=== PATIENT | female | born 1955 | race Caucasian/White ===

== ENCOUNTER → 2018-03-18 14:39 | Outpatient (POV) | payer MEDICARE, MEDICAID, SELFPAY | PROVIDERS: Family Provider Internal Medicine Adolescent Medicine | DX: Z00.00 Encounter for general adult medical examination without abnormal findings (principal) ==

== ENCOUNTER → 2019-06-02 08:43 | Outpatient (CLI) | payer MEDICARE, MEDICAID, SELFPAY ==
--- NOTE | 2019-06-02 08:48 | MM_ITS ---
PROCEDURE: MM DIG SCREENING MAMM BI W/CAD CLINICAL INDICATION: SCREENING There is a history of breast cancer in the patient's maternal aunts COMPARISON: DIGMAMMDX MAMMOGRAM DX-LONGWALL FOREMAN N/C from 05/15/2005 DIGMAMMS MAMMOGRAM SCREEN-LONGWALL FOREMAN N/C from 10/30/2005 DMSB DIGITAL MAMM-SCREEN BILATERAL from 03/06/2012 TECHNIQUE: Standard CC and MLO images were obtained. R2 CAD reviewed. FINDINGS: The breasts are composed primarily of fat with minimal scattered fibroglandular densities throughout each breast. There are scattered tiny benign-appearing microcalcifications in both breasts. The nipples appear to be slightly inverted bilaterally but this was noted previously and this is stable. There is no new or suspicious lesion in either breast and no suspicious microcalcifications. However a nipple smear of the right breast shows somewhat slightly suspicious or indeterminate findings and even though there is no significant mass or architectural distortion noted a I would recommend the patient have ultrasound of the circumareolar region right breast for additional evaluation. IMPRESSION: Fibrofatty parenchyma with no suspicious lesions seen BI-RAD Category: 0 Need Additional Imaging Evaluation FOLLOW-UP: IMM Immediate Follow-up Recommended (A letter has been sent to the patient regarding results of the study.) Dictated by: Dr. Blas Forrester MD 06/06/2019 08:[address] Blas Forrester MD in [place] 06/06/2019 08:11
--- NOTE | 2019-06-02 08:49 | XR_ITS ---
PROCEDURE: XR DEXA AXIAL SKELETON CLINICAL HISTORY: POST MENOPAUSAL COMPARISON: No exams were available for comparison TECHNIQUE: FINDINGS: The L1-L4 density is 1.308 grams/centimeters sq. This has a T-score of 1.1 The lowest density in the hips is in the left femoral neck at 0.481 grams/centimeters sq with a T-score of -4.0 indicating osteoporosis IMPRESSION: Osteoporosis with high fracture risk. Treatment advised. Suggest follow-up exam May 2020 Dictated by: Yosef Noyola MD 06/02/2019 10:30 Signed by: <Electronically signed by Yosef Noyola MD in [place]> 06/02/2019 10:30
== END ==
PROVIDERS: PCP Internal Medicine Adolescent Medicine; Visit Provider Internal Medicine Adolescent Medicine
DX: Z12.31 Encounter for screening mammogram for malignant neoplasm of breast (principal); Z78.0 Asymptomatic menopausal state
CPT/HCPCS: 77067; 77080; 88112

== ENCOUNTER 2019-06-18 12:47 | Outpatient (CLI) | payer MEDICARE, MEDICAID, SELFPAY ==
[2019-06-18 12:55] VITALS: BP 148/84; PULSE 61; RESP 18; O2SAT 92
== END 2019-06-18 13:12 | disposition home or self-care (01) ==
LOC: INF 12:47
PROVIDERS: Visit Provider Internal Medicine Adolescent Medicine
DX: M81.0 Age-related osteoporosis without current pathological fracture (principal)
CPT/HCPCS: 96372; J0897

== ENCOUNTER → 2019-06-21 09:34 | Outpatient (CLI) | payer MEDICARE, MEDICAID, SELFPAY ==
--- NOTE | 2019-06-21 09:39 | US_ITS ---
PROCEDURE: US BREAST RT COMPLETE CLINICAL INDICATION: ABN MAMM COMPARISON: MM DIG SCREENING MAMM BI W/CAD from 06/02/2019 FINDINGS: Ultrasound performed of the right breast shows no obvious sonographic abnormalities. Small nodes are present in the axilla. IMPRESSION: Unremarkable ultrasound the right breast. Dictated by: Yosef Noyola MD 06/21/2019 10:14 Electronically signed by Yosef Noyola MD in [place] 06/21/2019 10:14
== END ==
PROVIDERS: PCP Internal Medicine Adolescent Medicine; Visit Provider Internal Medicine Adolescent Medicine
DX: R92.8 Other abnormal and inconclusive findings on diagnostic imaging of breast (principal)
CPT/HCPCS: 76641

== ENCOUNTER → 2019-11-23 09:58 | Outpatient (POV) | payer MEDICARE, MEDICAID, SELFPAY | PROVIDERS: PCP Dermatology; Visit Provider Dermatology | DX: Z00.00 Encounter for general adult medical examination without abnormal findings (principal) ==

== ENCOUNTER 2020-04-28 09:27 | Emergency (ER) | payer MEDICARE, MEDICAID, SELFPAY ==
[2020-04-28 09:32] VITALS: BP 223/93; PULSE 78; RESP 18; TEMP 37; O2SAT 98; BMI 44.6
--- NOTE | 2020-04-28 09:38 | HMH.EDGENADL ---
ED Disposition Clinical Impression: Right knee sprain Qualifiers: Encounter type: initial encounter Involved ligament of knee: medial collateral ligament Qualified Code(s): S83.411A - Sprain of medial collateral ligament of right knee, initial encounter Right foot sprain Qualifiers: Encounter type: initial encounter Qualified Code(s): S93.601A - Unspecified sprain of right foot, initial encounter Disposition: Home, Self-Care Condition on Discharge: Good Instructions: How to Use a Walking Boot, DI for Foot Sprain, DI for Knee Sprain Additional Instructions: Orthopedic boot. Ibuprofen for pain. Follow-up with orthopedics, Dr. Hodge. Call for appointment. Prescriptions: Ibuprofen [Ibuprofen 800mg Tab] 800 mg PO Q8HP PRN #15 tab PRN Reason: Moderate Pain Transmission Status: Pending to [facility] Referrals: Preet Vazquez MD [Primary Care Provider] - Susan Hodge MD [Physician] - - Critical Care Critical Care Time: No Attestation: On , the high probability of a clinically significant, sudden or life threatening deterioration of the following system(s) required my full and direct attention, intervention and personal management. The time I documented below is in addition to time spent performing reported procedures but includes the following listed in this critical care notation. Medical Decision Making - Heath Inquiry Pt receiving controlled substance: No Vital Signs: 04/28/20 09:32 04/28/20 10:31 Temperature 98.6 F Temperature Source Oral Pulse Rate [Right Radial] 78 68 Respiratory Rate 18 18 Blood Pressure [Right Arm] 223/93 H 173/88 H Blood Pressure Mean [Right Arm] 136 116 Blood Pressure Source [Right Arm] Automatic Cuff Automatic Cuff Blood Pressure Position [Right Arm] Sitting Sitting 02 Sat by Pulse Oximetry 98 98 Oxygen Delivery Method Room Air Room Air Orders (Tests/Meds): ORDERS Category Date Time Status Foot XR right minimum 3 views [XR foot RT min 3V] Stat Exams 04/28/20 09:42 Taken XR knee RT 3V Stat Exams 04/28/20 09:42 Taken - Radiology Data #1 Image(s): Knee, Foot/Toes Image Reviewed: Yes I reviewed the patient's radiology image Degenerative changes with spurs. No fractures seen. Medical Decision Narrative: Discussed treatment and follow-up. The patient refuses a knee immobilizer. She does want a orthopedic boot for her foot. Recommended follow-up with orthopedics. General Adult HPI - General Stated complaint: ao/04/24/20 fell pain in leg and foot Time Seen by Provider: 04/28/20 09:38 - History of Present Illness HPI narrative: On 04/24/2020 the patient says that she was getting out of the pool, her daughter was lifting her with a Constantine lift into her wheelchair and let go of the Constantine lift, causing it to fall. She says that she landed on her left side but her right lower extremity went up under a piece of furniture. Since then she has pain in her right medial knee and also in the bottom of her foot whenever she tries to bear weight. 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 - Related Data Home Medications Medication Instructions Recorded Confirmed Aspirin [Aspirin 81mg EC Tab] 81 mg PO DAILY 09/20/18 06/18/19 Atorvastatin Calcium [Atorvastatin 80 mg PO DAILY 09/20/18 04/28/20 80mg Tab] Duloxetine HCl [Cymbalta 30mg 30 mg PO DAILY 09/20/18 06/18/19 capsule] Famotidine [Acid Controller] 20 mg PO DAILY 09/20/18 06/18/19 Felodipine [Felodipine ER] 10 mg PO BID 09/20/18 06/18/19 Ferrous Sulfate 325 mg PO DAILY 09/20/18 06/18/19 Folic Acid [Folic Acid 1mg tablet] 0 mg PO DAILY 09/20/18 06/18/19 Gabapentin 800 mg PO BID 09/20/18 04/28/20 Gabapentin [Gabapentin 400mg Cap] 400 mg PO BID 09/20/18 06/18/19 Levothyroxine Sodium 200 mcg PO DAILY 09/20/18 06/18/19 [Levothyroxine 200mcg (0.2mg) Tab] Metformin HCl 500 mg PO DAILY 09/20/18 06/18/19 Pioglitazone HCl 30 mg PO DAILY 09/20/18 04/28/20 Nathaly
--- NOTE | 2020-04-28 09:42 | XR_ITS ---
PROCEDURE: XR KNEE RT 3V CLINICAL INDICATION: fall Knee pain. COMPARISON: No exams were available for comparison FINDINGS: No fracture or dislocation. No lytic or blastic change. There is periarticular bony demineralization. There is moderate osteoarthrosis of the medial femorotibial and patellofemoral compartments demonstrated with joint space narrowing and osteophyte formation. Other findings:Diffuse atheromatous vascular calcifications. IMPRESSION: 1. No acute findings. 2. Moderate osteoarthrosis. 3. Atherosclerotic vascular disease. Dictated by: Lorraine Ridley 04/28/2020 10:43 Electronically signed by Lorraine Ridley in [place] 04/28/2020 10:43
--- NOTE | 2020-04-28 09:42 | XR_ITS ---
PROCEDURE: XR FOOT RT MIN 3V CLINICAL INDICATION: fall Pain in the arch of the foot. COMPARISON: No exams were available for comparison FINDINGS: No fracture or dislocation. No lytic or blastic change. There is normal mineralization. There is midfoot and 1st MTP mild degenerative arthrosis. Other findings:A moderate-sized plantar calcaneal spur is seen. A small enthesophyte of the calcaneus is seen posteriorly. Cortical spurring of the medial malleolus. There is diffuse mild soft tissue swelling of the left ankle and foot. IMPRESSION: 1. No acute findings. 2. Os calcis spurring. 3. Mild degenerative arthrosis of the left ankle, midfoot and MTP/interphalangeal articulations of the hallux. 4. Possible mild diffuse soft tissue swelling of the ankle and foot. Dictated by: Lorraine Ridley 04/28/2020 10:39 Electronically signed by Lorraine Ridley in [place] 04/28/2020 10:39
--- NOTE | 2020-04-28 09:49 | PC.NURSE ---
notified rad of new orders on pt.
--- NOTE | 2020-04-28 10:07 | PC.NURSE ---
pt to radiology
[2020-04-28 10:31] VITALS: BP 173/88; PULSE 68; RESP 18; O2SAT 98
[2020-04-28 10:49] VITALS: BP 173/88; PULSE 68; RESP 18; TEMP 37; O2SAT 98
== END 2020-04-28 10:49 | disposition home or self-care (01) ==
PROVIDERS: Emergency Provider Emergency Medicine; PCP Internal Medicine Adolescent Medicine
DX: S93.601A Unspecified sprain of right foot, initial encounter (principal); S83.411A Sprain of medial collateral ligament of right knee, initial encounter; W18.39XA Other fall on same level, initial encounter; Y92.89 Other specified places as the place of occurrence of the external cause; Z89.512 Acquired absence of left leg below knee; I25.2 Old myocardial infarction; E03.9 Hypothyroidism, unspecified; I10 Essential (primary) hypertension; E11.9 Type 2 diabetes mellitus without complications; E78.5 Hyperlipidemia, unspecified; Z88.0 Allergy status to penicillin; Z88.2 Allergy status to sulfonamides; Z88.5 Allergy status to narcotic agent; Z79.899 Other long term (current) drug therapy; F17.210 Nicotine dependence, cigarettes, uncomplicated
CPT/HCPCS: 29515; 73562; 73630; 99282

== ENCOUNTER 2020-05-05 11:30 | Outpatient (CLI) | payer MEDICARE, MEDICAID, SELFPAY ==
[2020-05-05 11:44] VITALS: BP 156/73; PULSE 51; RESP 18; TEMP 36.4; O2SAT 99
== END 2020-05-05 11:44 | disposition home or self-care (01) ==
LOC: INF 11:30
PROVIDERS: PCP Internal Medicine Adolescent Medicine; Visit Provider Internal Medicine Adolescent Medicine
DX: M81.0 Age-related osteoporosis without current pathological fracture (principal)
CPT/HCPCS: 96372; J0897

== ENCOUNTER → 2020-05-29 10:56 | Outpatient (CLI) | payer MEDICARE, MEDICAID, SELFPAY ==
--- NOTE | 2020-05-29 10:57 | US_ITS ---
APPROVED REPORT Exam Type: Ankle to Brachial Index Platform Engineer: Danya Lewis RT(R) Indications Claudication: Right Rest Pain: Right Current Smoker CAD Risk Factors History of PAD: Hyperlipidemia Obesity Diabetes Current Smoker above knee amputation on the left lower extremity. Pressures/Indices Right Indices Left Indices Brachial 254.00 mmHg Brachial 242.00 mmHg Low Thigh 140.00 mmHg 0.58 Low Thigh Calf 129.00 mmHg 0.53 Calf Ankle(PT) 133.00 mmHg 0.55 Ankle(PT) Ankle(DP) 139.00 mmHg 0.57 Ankle(DP) Digit 122.00 mmHg 0.50 Digit Findings RT CONNOR=0.6 LT CONNOR=Unobtainable due to above knee amputation RT TBI=0.5 Normal waveforms Diminished pulses Due to elevated BP Dr. Smith office was notified. Conclusion RT CONNOR=0.6 LT CONNOR=Unobtainable due to above knee amputation RT TBI=0.5 Normal waveforms Diminished pulses Moderate right arterial disease Electronically signed by : Yosef Noyola MD 05/29/2020 17:07:46
== END ==
PROVIDERS: PCP Internal Medicine Adolescent Medicine; Visit Provider Podiatrist
DX: R09.89 Other specified symptoms and signs involving the circulatory and respiratory systems (principal)
CPT/HCPCS: 93923

== ENCOUNTER 2020-11-22 00:37 | Inpatient (IN) | payer MEDICARE, MEDICAID, SELFPAY ==
[2020-11-22] VITALS (30 sets, daily range): BP systolic 133–206; BP diastolic 64–110; PULSE 56–95; RESP 14–20; TEMP 36.6–36.8; O2SAT 90–98; BMI 42.5
--- NOTE | 2020-11-22 | IR_ITS ---
APPROVED REPORT Patient Location: Outpatient Rn Ed: NARDA Laird RT (R) PROCEDURES Left heart catheterization Left ventriculogram Selective coronary angiogram Drug-eluting stent deployment to the ostial proximal LAD Right renal artery selective angiogram Drug-eluting stent deployment to the right renal artery INDICATION Acute on established myocardial infarction, Coronary disease, Malignant hypertension, Chronic renal failure chronic 1.5, Renal artery stenosis Informed consent was obtained prior to the procedure. COMPLICATIONS None Estimated Blood Loss: Less than 10 mls TECHNIQUE One percent lidocaine used to anesthetize the right anterior aspect of the wrist. The right radial artery was accessed via the Seldinger technique. A 6 [place] sheath was placed in the right radial artery. 2.5 mg of verapamil, 800 mcg of nitroglycerin, 1mg Lidocaine and 5000 U Heparin were given through the arterial sheath. Catheter was used to perform left heart catheterization left ventriculogram and selective coronary angiogram. Therapeutic heparin was administered and the catheter was used to intubate the left main artery. A Choice PT extra-support wire was placed into the LAD and a 2.5 x 15 mm resolute [place] stent was initially deployed at 18 paramjit reducing the critical stenosis. The balloon was brought back and then dilated at 24 paramjit to post dilate the ostial proximal portion of the stent. SWETHA-3 flow was present before and after the procedure. At the end of this procedure because patient's blood pressure was 240 mmHg systolic and she had a known left nephrectomy the [place] catheter was advanced and a right selective renal angiogram was performed. This demonstrated a severe stenosis therefore the wire was placed distal to the stenosis and a 5 mm x 15 mm resolute [place] stent was deployed at 20 paramjit reducing the severe stenosis to 0%. The balloon was brought back and deployed at 24 paramjit to further post dilate. After achieving excellent angiographic results with wide patency of the right renal artery the apparatus was removed the sheath was removed good hemostasis was achieved using TR banding patient was transferred to the postop putting in stable condition ANGIOGRAPHIC RESULTS The left main artery Normal The left anterior descending artery Has an ostial proximal 70 to 80% stenosis with remaining vessel having mild 10% stenosis The circumflex artery Is a large dominant vessel giving rise to a large trifurcating first obtuse marginal artery which has an ostial proximal 30 to 40% stenosis. The mid circumflex artery then has additional 30 to 40% stenoses. The terminal obtuse marginal artery has a proximal 90% concentric stenosis and then supplies two 1.5 mm obtuse marginal arteries. The right coronary artery Nondominant with proximal 30% stenosis mid vessel tandem 60% stenoses both in areas of 2 mm diameter vessels. The DOBBS ventriculogram reveals Hyperdynamic 70% The left ventricular end-diastolic pressure 20 mmHg The right renal artery singular and has an ostial 80% stenosis The left renal artery is noted to be occluded from previous nephrectomy IMPRESSION Severe to critical ostial proximal LAD disease as described above Successful stenting of the ostial proximal LAD severe disease reduced to 0% with 1 drug-eluting stent Persistent severe stenosis in the distal circumflex artery as described above Hyperdynamic ventricle system with hypertensive heart disease Elevated LVEDP consistent with hypertensive heart disease Severe right renal artery stenosis Successful stenting of the ostial proximal right renal artery severe disease reduced to 0% with 1 drug-eluting stent PLAN 1. Mesfin
--- NOTE | 2020-11-22 00:30 | ECG_ITS ---
APPROVED REPORT Exam: Resting ECG HR:64 bpm ECG Measurements Heart Rate 64 AXES NV 132 P 59 QRSd 100 QRS 78 QT 424 T -66 QTc 437 Conclusion Normal sinus rhythm with sinus arrhythmia ST & T wave abnormality, consider inferolateral ischemia Abnormal ECG Electronically signed by : Preet Vazquez, 11/22/2020 17:46:29
--- NOTE | 2020-11-22 01:06 | ECG_ITS ---
APPROVED REPORT Exam: Resting ECG HR:82 bpm ECG Measurements Heart Rate 82 AXES VT 122 P 39 QRSd 98 QRS 79 QT 364 T -63 QTc 425 Conclusion Normal sinus rhythm with sinus arrhythmia ST & T wave abnormality, consider inferolateral ischemia Abnormal ECG Electronically signed by : Preet Vazquez, 11/22/2020 17:46:34
--- NOTE | 2020-11-22 01:06 | XR_ITS ---
PROCEDURE: XR CHEST PORTABLE CLINICAL HISTORY: CP Chest pain COMPARISON: CR CXR1 CHEST-PORTABLE from 10/18/2015 CR CXR CHEST(2 VIEWS-NOT PORTABLE) from 08/06/2017 FINDINGS: Exam is limited secondary to underpenetration of the lung bases. Normal heart size. There is increased density in the right lower lobe which may in part be due to the underpenetration. Cannot exclude underlying pneumonia. Suggest repeating exam at no additional charge for further evaluation. Upper lobes are clear. There are degenerative changes in the shoulders. IMPRESSION: Underpenetration of the lung bases. Cannot exclude pneumonia in the right lower lobe. Suggest repeating exam Dictated by: Yosef Noyola MD 11/22/2020 05:26 Yosef Noyola MD in [place] 11/22/2020 05:26
[2020-11-22 01:14] LABS: Basophils # 0.1 K/mm3 (0-0.2); Basophils % 0.5 % (0.1-2.0); Eosinophils # 0.2 K/mm3 (0.0-0.4); Eosinophils % 1.3 % (0.1-12.0); Hemoglobin 13.8 g/dL (12.2-16.2); Lymphocytes # 2.6 K/mm3 (0.7-4.5); Lymphocytes % 18.8 % (10-50); Mean Corpuscular HGB Conc 32.2 g/dL (31.8-35.4); Mean Corpuscular Hemoglobin 28.1 pg (27.0-31.2); Mean Corpuscular Volume 87.4 fl (81-99); Mean Platelet Volume 7.8 fl (7.4-10.4); Monocytes # 0.6 K/mm3 (0.1-1.0); Monocytes % 4.5 % (1.7-9.3); Neutrophils # 10.2 K/mm3 (1.8-7.8); Neutrophils % 74.8 % (37.0-80.0); Platelet Count 382 K/mm3 (142-424); Red Blood Count 4.92 M/mm3 (4.20-5.40); Red Cell Distribution Width 14.6 % (11.5-17.5); White Blood Count 13.6 K/mm3 (4.8-10.8)
--- NOTE | 2020-11-22 01:14 | HMH.EDCP ---
ED Disposition Clinical Impression: Unstable angina pectoris, Non-STEMI (non-ST elevated myocardial infarction), Morbid obesity with body mass index (BMI) of 40.0 to 49.9, PVD (peripheral vascular disease), Tobacco use, Renal insufficiency Hypertension Qualifiers: Hypertension type: essential hypertension Qualified Code(s): I10 - Essential (primary) hypertension Diabetes mellitus Qualifiers: Diabetes mellitus type: type 2 Diabetes mellitus compressor battery pellets insulin use: unspecified intermediate insulin use status Diabetes mellitus complication status: with other specified complication Qualified Code(s): E11.69 - Type 2 diabetes mellitus with other specified complication Disposition: Admitted As Inpatient Condition on Discharge: Serious Referrals: PCP,No [Non-Staff] - - Critical Care Critical Care Time: No Attestation: On 11/22/20, the high probability of a clinically significant, sudden or life threatening deterioration of the following system(s) required my full and direct attention, intervention and personal management. The time I documented below is in addition to time spent performing reported procedures but includes the following listed in this critical care notation. Medical Decision Making - Medical Records Medical records reviewed: Yes: I reviewed the patient's medical records. - Heath Inquiry Pt receiving controlled substance: No Vital Signs: 11/22/20 00:56 Temperature 97.8 F Temperature Source Oral Pulse Rate [Right] 93 H Respiratory Rate 95 H Blood Pressure [Right Arm] 205/110 H Blood Pressure Mean [Right Arm] 141 02 Sat by Pulse Oximetry 95 Oxygen Delivery Method Room Air - Lab Data Lab results reviewed: Yes: I reviewed the patient's lab results. Lab Results 11/22/20 00:57: WBC 13.6 H, RBC 4.92, Hgb 13.8, Hct 43.0, MCV 87.4, MCH 28.1, MCHC 32.2, RDW 14.6, Plt Count 382, MPV 7.8, Neut % (Auto) 74.8, Lymph % (Auto) 18.8, [place] % (Auto) 4.5, Eos % (Auto) 1.3, Baso % (Auto) 0.5, Neut # (Auto) 10.2 H, Lymph # (Auto) 2.6, [place] # (Auto) 0.6, Eos # (Auto) 0.2, Baso # (Auto) 0.1 11/22/20 00:57: Sodium 142, Potassium 4.5, Chloride 105, Carbon Dioxide 27, Anion Gap 14.5, BUN 43 H, Creatinine 1.70 H, Estimated Creat Clear 27, Estimated GFR 30 L, Est GFR ( Amer) 36 L, Glucose 293 H, Calcium 10.1, Troponin I 0.14 H, C-Reactive Protein 50.5 H 11/22/20 00:57: ESR 74 H 11/22/20 00:57: Procalcitonin 0.067 11/22/20 01:35: Urine Color Yellow, Urine Appearance Clear, Urine pH 7.5, Ur Specific [place] 1.020, Urine Protein Trace, Urine Glucose (UA) Trace, Urine Ketones Negative, Urine Blood Trace-i, Urine Nitrate Negative, Urine Bilirubin Negative, Urine Urobilinogen 0.2, Ur Leukocyte Esterase Negative, Urine RBC 3-5, Urine WBC 3-5, Ur Squamous Epith Cells 10-20, Urine Bacteria 1+, Urine Mucus 1+ Result diagrams: 11/22/20 00:57 11/22/20 00:57 Orders (Tests/Meds): ED MEDICATIONS Generic Name Dose Route Start Last Admin Trade Name Freq PRN Reason Stop Dose Admin Sodium Chloride 1,000 mls @ 999 mls/hr 11/22/20 01:15 11/22/20 01:17 Sod Chlor 0.9% 1000ml Bag IV 11/22/20 02:15 999 mls/hr .Q1H1M ARMINDA Administration Nitroglycerin 0.4 mg 11/22/20 01:07 11/22/20 01:05 Nitroglycerin 0.4mg Sl Tablet SL 12/22/20 01:06 0.4 mg Q5MINP PRN Administration Chest Pain Discontinued Medications Generic Name Dose Route Start Last Admin Trade Name Freq PRN Reason Stop Dose Admin Aspirin 324 mg 11/22/20 01:07 11/22/20 01:16 Aspirin 81mg Chewable Tablet PO 11/22/20 01:08 324 mg ONCE ONE Administration Ketorolac Tromethamine 30 mg 11/22/20 01:29 11/22/20 01:35 Ketorolac 30mg/Ml Vial IV 11/22/20 01:30 30 mg ONCE ONE Administration Morphine Sulfate 2 mg 11/22/20 01:07 11/22/20 01:16 Morphine 2mg/Ml Syringe IV 11/22/20 01:08 2 mg ONCE ONE Administration Nitroglycerin 1 gm 11/22/20 01:23 11/22/20 01:26 Nitroglycerin 1 Gm Ointment TD 11/22/20 01:24 1 gm ONCE
[2020-11-22 01:20] LABS: Chloride 105 mmol/L (98-107); Potassium 4.5 mmoL/L (3.5-5.1); Sodium 142 mmol/L (136-145)
[2020-11-22 01:23] LABS: Anion Gap 14.5 mEq/L (5-15); Blood Urea Nitrogen 43 mg/dl (7-17); Calcium 10.1 mg/dl (8.4-10.2); Carbon Dioxide 27 mmol/L (22.0-30.0); Creatinine Clearance Estimated 27 mL/min (50-200); Estimated Glomerular Filt Rate 30 ml/min (>60); GFR (African American) 36 ML/MIN (>60); Glucose 293 mg/dl (74-100)
[2020-11-22 01:28] LABS: C-Reactive Protein 50.5 mg/L (0-4)
[2020-11-22 01:37] LABS: Troponin I 0.14 ng/ml (0.00-0.034)
[2020-11-22 01:39] LABS: Appearance,Urine CLEAR (Clear); Bilirubin,Urine Negative (Negative); Blood, Urine TRACE-I (Negative); Color,Urine YELLOW (Yellow); Glucose,Urine (UA) TRACE (Negative); Ketones,Urine Negative (Negative); Leukocyte Esterase,Urine Negative (Negative); Microscopic, Urine URINE MICROSCOPIC (MICROSCOPIC); Nitrate,Urine Negative (Negative); PH,Urine 7.5 (5.0-8.5); Protein,Urine TRACE (Negative); Urobilinogen,Urine 0.2 EU/dl (0.2)
[2020-11-22 01:42] LABS: Procalcitonin 0.067 ng/mL (0.0-2.0)
[2020-11-22 01:50] LABS: Erythrocyte Sedimentation Rate 74 mm/hr (0-30)
[2020-11-22 01:50] LABS: Bacteria,Urine 1+ /lpf; Mucus,Urine 1+ /lpf
--- NOTE | 2020-11-22 02:33 | PC.NURSE ---
Pt has been admitted [facility] to [facility] for Non-Stemi and unstable angina. There are no Available beds on the floor and pt will be a Boarder in the ER
--- NOTE | 2020-11-22 03:02 | PC.NURSE ---
pt laying in bed with eyes closed
--- NOTE | 2020-11-22 03:53 | PC.NURSE ---
Pt resting quietly at this time, No c/o.
[2020-11-22 04:44] LABS: Troponin I 0.64 ng/ml (0.00-0.034)
--- NOTE | 2020-11-22 04:47 | PC.NURSE ---
Critical Troponin called from lab, Dr Blood aware
--- NOTE | 2020-11-22 05:04 | CA_ITS ---
APPROVED REPORT EXAM: Comprehensive 2D, Doppler, and color-flow Echocardiogram Presto Log Operator: Zoey Grover RVT Ht: 5 ft 3 in Wt: 240lbs BSA: 2.09 BP: 205/110 mmHg Indications: NSTEMI,CABG,SMOKER,OBESITY,HTN,HLD,DM TDS-PT BODY HABITUS 2D Dimensions LVOT 1.57 cm (M/F) 1.5-2.5 LA Volume 26.00 mL LA Volume Index 12.44 mL/m2 (M/F) 16-34 M-Mode Dimensions RVDd 1.74 cm (0.9-2.6) LA Diam 4.20 cm (1.9-4.0) LVDd 4.97 cm (3.5-5.7) Ao Diam 2.49 cm (2.0-3.7) LVDs 3.40 cm (3.5-5.7) IVSd 1.57 cm (0.6-1.1) PWd 1.02 cm (0.6-1.1) EF (Teich) 59.30% FS 31.60% EDV (Teich) 116.60 mL ESV (Teich) 47.40 mL LV Diastology E Decel Time 200.00 (160-240 msec) E/A Ratio 0.9 MED E' 6.40 (< 7 cm/sec) E'/MED E' Ratio 15.91 (>14) LAT E' 7.10 (<10 cm/sec) E/LAT E' Ratio 14.34 (>14) Aortic Valve AI PHT 657.00 ms Mitral Valve MV E Max Goran. 102.00 (40-130 cm/s) MV A Velocity 117.00 (40-130 cm/s) E/A Ratio 0.87 MV Decel. Time 200.00 (160-240 ms) MV PHT 59.00 ms Pulmonary Valve PV Peak Velocity 105.00 (50-150 cm/s) Tricuspid Valve TR P. Velocity 169.00 cm/s RAP Estimate 10.00 mmHg RVSP 21.40 mmHg Left Ventricle Left atrium is mildly enlarged, left ventricle is normal size, mild concentric left ventricular hypertrophy, visually estimated ejection fraction 55% with no regional wall motion abnormality, grade 1 diastolic dysfunction seen with tissue Doppler evidence of raise left atrial pressure. Right Ventricle Right atrium and right ventricular normal size and contractility. Aortic Valve Aortic valve is minimally thickened and fibrosed, there is no aortic stenosis, there is mild aortic insufficiency. Mitral Valve Mitral valve is minimally thickened, there is no mitral stenosis, there is mild mitral regurgitation. Tricuspid Valve Tricuspid valve grossly normal, there is mild tricuspid regurgitation, tricuspid regurgitation jet velocity is inadequate for calculation of the right ventricular systolic pressure. Pulmonic Valve Pulmonic valve is poorly visualized. Great Vessels Aortic root is normal size. Pericardium No significant pericardial effusion noted. Conclusion 1. Mildly enlarged left atrium, normal left ventricular size, mild concentric left ventricular hypertrophy, visually estimated ejection fraction 55% with no regional wall motion abnormality, grade 1 diastolic dysfunction seen without tissue Doppler evidence of raise left atrial pressure. 2. Mild aortic, mild mitral and tricuspid regurgitation. 3. No significant pericardial effusion noted. Electronically signed by : Haider Davis, 11/23/2020 13:05:28
--- NOTE | 2020-11-22 05:34 | PC.NURSE ---
pt resting quietly @ this time
--- NOTE | 2020-11-22 05:54 | PC.NURSE ---
AM lab drawn, FSBS 211 no insulin given because of NPO diet
[2020-11-22 05:58] LABS: POC Glucose,Bedside 211 (70-110)
--- NOTE | 2020-11-22 06:09 | PC.NURSE ---
notified vascular of echo order
--- NOTE | 2020-11-22 06:27 | PC.NURSE ---
vascular @ bedside for echo
[2020-11-22 06:34] LABS: Basophils # 0.1 K/mm3 (0-0.2); Basophils % 0.5 % (0.1-2.0); Eosinophils # 0.2 K/mm3 (0.0-0.4); Eosinophils % 1.5 % (0.1-12.0); Hematocrit 40.7 % (37.0-47.0); Hemoglobin 13.2 g/dL (12.2-16.2); Lymphocytes # 2.9 K/mm3 (0.7-4.5); Lymphocytes % 25.8 % (10-50); Mean Corpuscular HGB Conc 32.5 g/dL (31.8-35.4); Mean Corpuscular Hemoglobin 28.3 pg (27.0-31.2); Mean Corpuscular Volume 87.1 fl (81-99); Monocytes # 0.5 K/mm3 (0.1-1.0); Monocytes % 4.6 % (1.7-9.3); Neutrophils # 7.7 K/mm3 (1.8-7.8); Neutrophils % 67.6 % (37.0-80.0); Platelet Count 247 K/mm3 (142-424); Red Blood Count 4.67 M/mm3 (4.20-5.40); Red Cell Distribution Width 14.7 % (11.5-17.5); White Blood Count 11.4 K/mm3 (4.8-10.8)
[2020-11-22 06:50] LABS: Chloride 111 mmol/L (98-107); Potassium 4.7 mmoL/L (3.5-5.1); Sodium 141 mmol/L (136-145)
[2020-11-22 06:53] LABS: Blood Urea Nitrogen 41 mg/dl (7-17); Creatinine Clearance Estimated 30 mL/min (50-200); Estimated Glomerular Filt Rate 35 ml/min (>60); GFR (African American) 42 ML/MIN (>60)
[2020-11-22 06:54] LABS: Anion Gap 8.7 mEq/L (5-15); Carbon Dioxide 26 mmol/L (22.0-30.0); Glucose 203 mg/dl (74-100)
--- NOTE | 2020-11-22 07:08 | PC.NURSE ---
Jeremi on phone with Evette @ this time
[2020-11-22 07:09] LABS: Troponin I 1.67 ng/ml (0.00-0.034)
[2020-11-22 07:13] LABS: INR 1.03 (0.9-1.1); Prothrombin Time 11.4 seconds (9.4-11.8)
--- NOTE | 2020-11-22 07:26 | PC.NURSE ---
per dionicio salcido in laboratory geneticist pt will have heart cath between 8-8:30am today
--- NOTE | 2020-11-22 07:27 | PC.NURSE ---
Pt prepped for cath, groin shaved, consent signed.
--- NOTE | 2020-11-22 08:46 | PC.NURSE ---
report given to dionicio chaney from [facility] at this time
--- NOTE | 2020-11-22 08:51 | PC.NURSE ---
Pt to Technical Support Specialist with Liliana Peña RN
--- NOTE | 2020-11-22 09:22 | HMH.CNCARD ---
History of Present Illness Consult date: 11/22/20 Requesting physician: Reece Blood Consult reason: chest pain Chief complaint: chest pain History of present illness: This is a 65-year-old white female who presented to the emergency department with complaints of chest pain. She states that she has had the chest pain for approximately 3 nights. She describes this as a pressure heavy sensation in the substernal aspect of her chest that radiates into the left side of her jaw. It is associated with shortness of breath. This happens at rest and worsens with exertion. Nothing really helped to improve the pain. The patient states that this is a moderate in intensity pain. The patient did have an elevated troponin at 0.14 and then elevated to 1.67. This is consistent with a non-ST elevation myocardial infarction. The patient has known hypertension, diabetes and is a tobacco user. She also has a family history of coronary artery disease. She denies any fever, chills, nausea, vomiting, diarrhea, PND or orthopnea. [facility] History I have reviewed the patient's past medical history: Yes Medical History: Reports:: Diabetes Mellitus Type 2, Hyperlipidemia, Hypertension, Myocardial Infarction Denies:: Cancer, Diabetes Mellitus Type 1, MRSA *Have you ever received a pneumonia vaccine?: Yes *Have you received a flu vaccine this season?: Yes Other Medical History: Reports: Thyroid Disease Laterality Cases: Right: Other, Bilateral: Tonsillectomy Other Surgeries: Yes: CABG, Cardiac Catheterization, Cholecystectomy, , Thyroidectomy Amputation: Yes Fractures: No - *Social History Smoking Status: Current every day smoker Tobacco Type: cigarettes # Packs/Day (cigarettes): 2 Alcohol Intake: never Alcohol Intake Frequency:: other Substance Use Type: denies use *Occupational Status:: disabled Housing: house Household Members: significant other, children *Travel in the last 8 weeks: None Family Hx:: Diabetes, Cancer, Hypertension Meds Home Medications Medication Instructions Recorded Confirmed Type Aspirin [Aspirin 81mg EC Tab] 81 mg PO DAILY 09/20/18 11/22/20 History Atorvastatin Calcium [Atorvastatin 80 mg PO DAILY 09/20/18 11/22/20 History 80mg Tab] Felodipine [Felodipine ER] 10 mg PO BID 09/20/18 11/22/20 History Levothyroxine Sodium 200 mcg PO DAILY 09/20/18 11/22/20 History [Levothyroxine 200mcg (0.2mg) Tab] Pioglitazone HCl 30 mg PO DAILY 09/20/18 11/22/20 History lisinopriL [Lisinopril 40mg Tablet] 40 mg PO DAILY 09/20/18 11/22/20 History Oxycodone HCl/Acetaminophen 1 tab PO BID 11/22/20 11/22/20 History [Oxycodone W/Apap 325mg Tablet] diazePAM [diazePAM 5mg Tablet] 5 mg PO BID 11/22/20 11/22/20 History hydroCHLOROthiazide [HCTZ 25mg 25 mg PO DAILY 11/22/20 11/22/20 History tab] Allergies Allergy/AdvReac Type Severity Reaction Status Date / Time penicillin G [PENICILLIN G] Allergy Mild Verified 11/22/20 01:15 Sulfa (Sulfonamide Allergy Mild Verified 11/22/20 01:15 Antibiotics) [SULFA (SULFONAMIDE ANTIBIOTICS)] adhesive tape AdvReac Mild Verified 11/22/20 01:15 Exam Vital signs and Labs for Last 24 Hours: Temp Pulse Resp BP Pulse Ox 98.2 F 86 20 159/69 H 91 L 11/22/20 08:49 11/22/20 08:49 11/22/20 08:49 11/22/20 08:49 11/22/20 06:05 Laboratory Results - last 24 hr 11/22/20 00:57: WBC 13.6 H, RBC 4.92, Hgb 13.8, Hct 43.0, MCV 87.4, MCH 28.1, MCHC 32.2, RDW 14.6, Plt Count 382, MPV 7.8, Neut % (Auto) 74.8, Lymph % (Auto) 18.8, [place] % (Auto) 4.5, Eos % (Auto) 1.3, Baso % (Auto) 0.5, Neut # (Auto) 10.2 H, Lymph # (Auto) 2.6, [place] # (Auto) 0.6, Eos # (Auto) 0.2, Baso # (Auto) 0.1 11/22/20 00:57: Sodium 142, Potassium 4.5, Chloride 105, Carbon Dioxide 27, Anion Gap 14.5, BUN 43 H, Creatinine 1.70 H, Estimated Creat Clear 27, Estimated GFR 30 L, Est GFR ( Amer) 36 L, Glucose 293 H, Calcium 10.1, Troponin I 0.14 H, C-Reactive Protein 50.5 H 11/22/20 00:57: ESR 7
[2020-11-22 10:18] LABS: Cholesterol 204 mg/dl (140-200); Triglycerides 172 mg/dl (30-150); VLDL Cholesterol 34 mg/dL (0-40)
[2020-11-22 10:19] LABS: Chol/HDL Ratio 5.1 (1-3.5); HDL Cholesterol 40 mg/dl (40-60)
[2020-11-22 10:30] LABS: Direct LDL Cholesterol 121.76 mg/dL (100-129)
--- NOTE | 2020-11-22 13:48 | P.CONPHA_ITS ---
[facility] Pharmacy VTE Monitoring - Patient Demographics Admission date: 11/22/20 Report Date: 11/22/20 Time: 13:48 Allergies/Adverse Reactions: Patient Allergies penicillin G [PENICILLIN G] Allergy (Mild, Verified 11/22/20 01:15) Sulfa (Sulfonamide Antibiotics) [SULFA (SULFONAMIDE ANTIBIOTICS)] Allergy (Mild, Verified 11/22/20 01:15) adhesive tape Adverse Reaction (Mild, Verified 11/22/20 01:15) Height: 1.6 m Weight: 108.862 kg Patient Problems: Current Active Problems Hypertension (Acute) Unstable angina pectoris (Acute) Non-STEMI (non-ST elevated myocardial infarction) (Acute) Diabetes mellitus (Acute) Tobacco use (Acute) Renal insufficiency (Acute) Non-ST elevation myocardial infarction (NSTEMI) (Acute) HLD (hyperlipidemia) (Chronic) PVD (peripheral vascular disease) (Chronic) Morbid obesity with body mass index (BMI) of 40.0 to 49.9 (Chronic) - VTE Risk Labs: VTE Related Lab Results Hgb 13.2 g/dL (12.2-16.2) 11/22/20 05:47 Hct 40.7 % (37.0-47.0) 11/22/20 05:47 Plt Count 247 K/mm3 (142-424) D 11/22/20 05:47 PT 11.4 seconds (9.4-11.8) 11/22/20 06:25 INR 1.03 (0.9-1.1) 11/22/20 06:25 BUN 41 mg/dl (7-17) H 11/22/20 06:25 Creatinine 1.50 mg/dl (0.52-1.04) H 11/22/20 06:25 Estimated Creat Clear 30 mL/min (50-200) 11/22/20 06:25 - Prophylaxis VTE Prophylaxis Ordered?: Yes Types of VTE Prophylaxis: TEDS Knee High Location of Applied Device: Bilateral Lower Extremeties
[2020-11-22 14:09] LABS: INR 1.09 (0.9-1.1)
[2020-11-22 15:16] LABS: CATHL Activated Clotting Time > 400 SEC (74-125)
[2020-11-22 16:54] LABS: POC Glucose,Bedside 154 (70-110)
--- NOTE | 2020-11-22 17:07 | PC.NURSE ---
Spoke with Dr. Vazquez earlier in re to pts bp being elevated and he ordered 40 mg lisinopril now and cbc and bmp in am. Pt already has labs ordered for am.
--- NOTE | 2020-11-22 17:37 | HMH.HP ---
*Admission Date: 11/22/20 *Chief complaint: Chest pain/STEMI *History of present illness: History of present illness: This is a 65-year-old white female who presented to the emergency department with complaints of chest pain. She states that she has had the chest pain for approximately 3 nights. She describes this as a pressure heavy sensation in the substernal aspect of her chest that radiates into the left side of her jaw. It is associated with shortness of breath. This happens at rest and worsens with exertion. Nothing really helped to improve the pain. The patient states that this is a moderate in intensity pain. The patient did have an elevated troponin at 0.14 and then elevated to 1.67. This is consistent with a non-ST elevation myocardial infarction. The patient has known hypertension, diabetes and is a tobacco user. She also has a family history of coronary artery disease. She denies any fever, chills, nausea, vomiting, diarrhea, PND or orthopnea. Above note per cardiology. Patient diagnosed with non-STEMI, taken to [facility]. Results as below: IMPRESSION Severe to critical ostial proximal LAD disease as described above Successful stenting of the ostial proximal LAD severe disease reduced to 0% with 1 drug-eluting stent Persistent severe stenosis in the distal circumflex artery as described above Hyperdynamic ventricle system with hypertensive heart disease Elevated LVEDP consistent with hypertensive heart disease Severe right renal artery stenosis Successful stenting of the ostial proximal right renal artery severe disease reduced to 0% with 1 drug-eluting stent PLAN 1. Brilinta and aspirin 2. Beta-blockers ELIEL inhibitors 3. Control of hypertension 4. At this point I favor treating the distal circumflex artery medically. After patient is maximally medically managed and her blood pressure is better controlled should she continue to experience angina pectoris I could consider stenting this vessel although because of the bifurcating nature I believe medical management would be most warranted at this time 5. LDL less than 55 6. Cardiac rehabilitation 7. Avoidance of tobacco products [facility] History I have reviewed the patient's past medical history: Yes Medical History: Reports:: Diabetes Mellitus Type 2, Hyperlipidemia, Hypertension, MRSA, Myocardial Infarction Denies:: Cancer, Diabetes Mellitus Type 1 *Have you ever received a pneumonia vaccine?: Yes *Have you received a flu vaccine this season?: Yes Other Medical History: Reports: Thyroid Disease Laterality Cases: Right: Other, Bilateral: Tonsillectomy Other Surgeries: Yes: CABG, Cardiac Catheterization, Cholecystectomy, , Thyroidectomy Amputation: Yes (girma L side) Fractures: No - *Social History Smoking Status: Current every day smoker Tobacco Type: cigarettes # Packs/Day (cigarettes): 1 Alcohol Intake: never Alcohol Intake Frequency:: other Substance Use Type: denies use *Occupational Status:: disabled Housing: house Household Members: significant other, children *Travel in the last 8 weeks: None Family Hx:: Diabetes, Cancer, Hypertension Review of Systems - Review of Systems Review of systems:: pertinent systems reviewed and negative unless documented below - *Neurologic Denies headache(s), Denies seizure-like activity Meds Home Medications Medication Instructions Recorded Confirmed Type Aspirin [Aspirin 81mg EC Tab] 81 mg PO DAILY 09/20/18 11/22/20 History Atorvastatin Calcium [Atorvastatin 80 mg PO DAILY 09/20/18 11/22/20 History 80mg Tab] Felodipine [Felodipine ER] 10 mg PO BID 09/20/18 11/22/20 History Levothyroxine Sodium 200 mcg PO DAILY 09/20/18 11/22/20 History [Levothyroxine 200mcg (0.2mg) Tab] Pioglitazone HCl 30 mg PO DAILY 09/20/18 11/22/20 History lisinopriL [Lisinopril 40mg Tablet] 40 mg PO DAILY 09/20/18 11/22/20 History Oxycodone HCl/Acetaminophen 1 tab PO BID PRN 11/22/20 11/22/20 History [Oxycodone
--- NOTE | 2020-11-22 20:06 | PC.NURSE ---
Pt alert and oriented x 4. RR even and unlabored. Continues on 2 L NC. BP improved at this time. 159/82. Dsg cdi to r wrist radial site. Pt denies pain or distress.
[2020-11-22 21:53] LABS: POC Glucose,Bedside 111 (70-110)
[2020-11-23] VITALS: BP 122/89; PULSE 76; PULSE 80; RESP 18; TEMP 36.6; O2SAT 94
--- NOTE | 2020-11-23 03:35 | PC.NURSE ---
pt radial cath site dressing is c/d/i. bruising noted to surrounding area but no swelling. iv leaking and was dc. pt refused to have new iv inserted. telemetry reading sinus arrhythmia. pt stating pain in left aka site. tylenol was given and warm blankets applied to site with no relief. repositioned pt with no relief. md was notified and new order obtained for prn pain. pt states new order will not help but did take dose. call light in reach. vss. will continue to monitor.
[2020-11-23 04:00] VITALS: BP 122/69; PULSE 87; RESP 18; TEMP 36.4; O2SAT 94
[2020-11-23 04:30] VITALS: PULSE 70
[2020-11-23 05:00] VITALS: BMI 40.7
[2020-11-23 06:37] LABS: POC Glucose,Bedside 149 (70-110)
[2020-11-23 07:00] LABS: Basophils # 0.1 K/mm3 (0-0.2); Basophils % 0.9 % (0.1-2.0); Eosinophils # 0.2 K/mm3 (0.0-0.4); Hematocrit 43.8 % (37.0-47.0); Hemoglobin 13.8 g/dL (12.2-16.2); Lymphocytes # 2.9 K/mm3 (0.7-4.5); Mean Corpuscular HGB Conc 31.5 g/dL (31.8-35.4); Mean Corpuscular Hemoglobin 28.2 pg (27.0-31.2); Mean Corpuscular Volume 89.6 fl (81-99); Mean Platelet Volume 8.2 fl (7.4-10.4); Monocytes # 0.5 K/mm3 (0.1-1.0); Monocytes % 4.4 % (1.7-9.3); Neutrophils # 7.1 K/mm3 (1.8-7.8); Neutrophils % 65.7 % (37.0-80.0); Platelet Count 390 K/mm3 (142-424); Red Blood Count 4.89 M/mm3 (4.20-5.40); Red Cell Distribution Width 14.9 % (11.5-17.5); White Blood Count 10.7 K/mm3 (4.8-10.8)
[2020-11-23 07:14] LABS: Chloride 108 mmol/L (98-107); Sodium 138 mmol/L (136-145)
[2020-11-23 07:15] LABS: Potassium 4.5 mmoL/L (3.5-5.1)
[2020-11-23 07:18] LABS: Anion Gap 10.5 mEq/L (5-15); Blood Urea Nitrogen 29 mg/dl (7-17); Calcium 9.8 mg/dl (8.4-10.2); Carbon Dioxide 24 mmol/L (22.0-30.0); Creatinine Clearance Estimated 33 mL/min (50-200); Estimated Glomerular Filt Rate 41 ml/min (>60); GFR (African American) 49 ML/MIN (>60); Glucose 134 mg/dl (74-100); Magnesium 2.1 mg/dl (1.6-2.3)
[2020-11-23 07:32] LABS: INR 1.08 (0.9-1.1); Prothrombin Time 11.9 seconds (9.4-11.8)
[2020-11-23 07:59] VITALS: BP 168/80; PULSE 62; RESP 18; TEMP 36.4; O2SAT 97
[2020-11-23 08:00] VITALS: PULSE 62; RESP 18; O2SAT 97
--- NOTE | 2020-11-23 08:35 | HMH.DCSUM ---
General - General Admission date:: 11/22/20 Discharge date: 11/23/20 HPI HPI: History of present illness: This is a 65-year-old white female who presented to the emergency department with complaints of chest pain. She states that she has had the chest pain for approximately 3 nights. She describes this as a pressure heavy sensation in the substernal aspect of her chest that radiates into the left side of her jaw. It is associated with shortness of breath. This happens at rest and worsens with exertion. Nothing really helped to improve the pain. The patient states that this is a moderate in intensity pain. The patient did have an elevated troponin at 0.14 and then elevated to 1.67. This is consistent with a non-ST elevation myocardial infarction. The patient has known hypertension, diabetes and is a tobacco user. She also has a family history of coronary artery disease. She denies any fever, chills, nausea, vomiting, diarrhea, PND or orthopnea. Above note per cardiology. Patient diagnosed with non-STEMI, taken to [facility]. Results as below: IMPRESSION Severe to critical ostial proximal LAD disease as described above Successful stenting of the ostial proximal LAD severe disease reduced to 0% with 1 drug-eluting stent Persistent severe stenosis in the distal circumflex artery as described above Hyperdynamic ventricle system with hypertensive heart disease Elevated LVEDP consistent with hypertensive heart disease Severe right renal artery stenosis Successful stenting of the ostial proximal right renal artery severe disease reduced to 0% with 1 drug-eluting stent PLAN 1. Brilinta and aspirin 2. Beta-blockers ELIEL inhibitors 3. Control of hypertension 4. At this point I favor treating the distal circumflex artery medically. After patient is maximally medically managed and her blood pressure is better controlled should she continue to experience angina pectoris I could consider stenting this vessel although because of the bifurcating nature I believe medical management would be most warranted at this time 5. LDL less than 55 6. Cardiac rehabilitation 7. Avoidance of tobacco products Hospital Course Hospital Course: Patient admitted with non-STEMI, taken to [facility]. Please see HPI for details of catheterization procedure. Patient tolerated the procedure well. This morning is awake, alert, sitting on the side of the bed. No complaints. Blood pressure was mildly elevated through the night, but patient feels well and her blood pressure is more normal this morning. No focal cardiac or pulmonary exam findings today. Patient will be discharged home with goal-directed therapy, I will see her next Friday. She plans to receive her COVID-19 vaccination tomorrow. I told her this should be fine. I encouraged her once again to stop smoking. Close follow-up in the office with cardiology and myself next week. Given her renal artery angiogram and subsequent intervention she will need close blood pressure monitoring. Kidney function this morning has improved over admission exam. Objective Vital signs: Temp Pulse Resp BP Pulse Ox 97.6 F 62 18 168/80 H 97 11/23/20 07:59 11/23/20 07:59 11/23/20 07:59 11/23/20 07:59 11/23/20 07:59 no acute distress - *Routine HEENT Exam Head: Present: normocephalic Eye: Present: EOMI, PERRL ENT: Present: mucous membranes moist - *Routine Neck Exam Present: supple - *Routine Respiratory Exam Present: CTA bilaterally - *Routine Cardiovascular Exam Present: RRR - *Routine Abdominal Exam Present: soft, normoactive bowel sounds. Absent: tenderness - *Routine Extremities Exam Absent: cyanosis, clubbing, edema Comments: Status post AKA on the left. - *Routine Skin Exam Present: warm. Absent: rash - Detailed Eye Exam Eyelids: Bilateral normal inspection Results Labs on day of discharge: Labs from last 24 hours 11/23/20
--- NOTE | 2020-11-23 08:53 | HMH.PNCARD ---
Subjective Date: 11/23/20 Time: 08:30 Principal diagnosis: non-stemi Interval history: This is a 65-year-old white female who presented to the emergency department complaints of chest pain. The patient was found to have a non-ST elevation myocardial infarction and she was taken to the cardiac catheterization laboratory to undergo left cardiac catheterization. The patient had successful stenting of the occipital proximal LAD with 1 drug-eluting stent. She also had successful stenting of the ostial proximal right renal artery due to severe renal artery stenosis with 1 drug-eluting stent. The patient will be on Brilinta and aspirin for dual antiplatelet therapy. The patient's blood pressure medications were adjusted and her blood pressure is under better control today. It is somewhat high this morning but has been running really well overnight. The patient denies any chest pain or pressure this morning. She denies any shortness of breath or edema. She denies any fever, chills, nausea, vomiting, diarrhea, PND or orthopnea. The patient states that she is ready for discharge home and she will be following up with her regular fryline attendant Dr. Berry in [place]. Exam Vital signs and Labs for Last 24 Hours: Temp Pulse Resp BP Pulse Ox 97.6 F 62 18 168/80 H 97 11/23/20 07:59 11/23/20 07:59 11/23/20 07:59 11/23/20 07:59 11/23/20 07:59 Laboratory Results - last 24 hr 11/22/20 06:25: Triglycerides 172 H, Cholesterol 204 H, LDL Cholesterol Direct 121.76, VLDL Cholesterol 34, HDL Cholesterol 40, Cholesterol/HDL Ratio 5.1 H 11/22/20 10:46: Activated Clotting Time > 400 H* 11/22/20 13:30: PT 12.0 H, INR 1.09 11/22/20 16:14: POC Glucose 154 H 11/22/20 20:39: POC Glucose 111 H 11/23/20 06:03: POC Glucose 149 H 11/23/20 06:46: WBC 10.7, RBC 4.89, Hgb 13.8, Hct 43.8, MCV 89.6, MCH 28.2, MCHC 31.5 L, RDW 14.9, Plt Count 390 D, MPV 8.2, Neut % (Auto) 65.7, Lymph % (Auto) 27.0, [place] % (Auto) 4.4, Eos % (Auto) 2.0, Baso % (Auto) 0.9, Neut # (Auto) 7.1, Lymph # (Auto) 2.9, [place] # (Auto) 0.5, Eos # (Auto) 0.2, Baso # (Auto) 0.1 11/23/20 06:46: PT 11.9 H, INR 1.08 11/23/20 06:46: Sodium 138, Potassium 4.5, Chloride 108 H, Carbon Dioxide 24, Anion Gap 10.5, BUN 29 H D, Creatinine 1.30 H, Estimated Creat Clear 33, Estimated GFR 41 L, Est GFR ( Amer) 49 L, Glucose 134 H, Calcium 9.8, Magnesium 2.1 I & O for Last 24 hours: Intake & Output 11/20/20 11/21/20 11/22/20 11/23/20 23:59 23:59 23:59 23:59 Intake Total 240 / 240 274 / 274 Balance 240 / 240 274 / 274 Weight 240 lb 230 lb Microbiology Reports for the Last 24 Hours: Microbiology 11/22/20 01:50 Nasopharyngeal Coronavirus COVID-19 PCR - Final - Constitutional no acute distress, morbidly obese - *Routine HEENT Exam Head: Present: normocephalic, atraumatic Eye: Present: EOMI, PERRL ENT: Present: mucous membranes moist - *Routine Neck Exam Present: supple, full ROM, normal carotid upstroke. Absent: JVD, carotid bruit, lymphadenopathy - *Routine Respiratory Exam Present: wheezes (Expiratory wheezing noted throughout) - *Routine Cardiovascular Exam Present: RRR, Normal S1, Normal S2. Absent: murmur - *Routine Abdominal Exam Present: soft, normoactive bowel sounds. Absent: tenderness, distended - *Routine Extremities Exam Present: full ROM, pulses intact (Except left lower extremity, she does have an amputation), normal capillary refill. Absent: cyanosis, clubbing, edema - *Routine Skin Exam Present: intact, warm. Absent: erythema, rash - *Routine Neurological Exam Present: alert, oriented X3, CN II-XII intact. Absent: sensory deficit, motor deficit Progress Note: A&P (1) Non-ST elevation myocardial infarction (NSTEMI) Status: Acute (2) Hypertension Status: Chronic (3) Diabetes mellitus Status: Chronic (4) Tobacco use Status: Chronic (5) HLD (hyperlipidemia) Status: Chronic (6) PVD (peripheral vascular disease)
--- NOTE | 2020-11-23 10:53 | HMH.PHACLD ---
Cecilia Miranda has received discharge medication counseling on the following medications: NEW MEDICATIONS: BRILINTA, CARVEDILOL CONTINUED MEDICATIONS: LISINOPRIL, LIPITOR, ASPIRIN
== END 2020-11-23 10:30 | disposition home or self-care (01) | DRG 247 ==
LOC: ER 01:21 → 2ND 02:27
PROVIDERS: Internal Medicine; Nurse Practitioner Family; Admitting Provider Emergency Medicine; Emergency Provider Emergency Medicine; PCP Internal Medicine Adolescent Medicine; Visit Provider Internal Medicine Adolescent Medicine
PROC: 027034Z Dilation of Coronary Artery, One Artery with Drug-eluting Intraluminal Device, Percutaneous Approach (ICD-10-PCS; principal; 2020-11-22 08:00)
DX: I21.4 Non-ST elevation (NSTEMI) myocardial infarction (principal); Z68.41 Body mass index [BMI] 40.0-44.9, adult; I25.110 Atherosclerotic heart disease of native coronary artery with unstable angina pectoris; E11.9 Type 2 diabetes mellitus without complications; I77.1 Stricture of artery; Z90.5 Acquired absence of kidney; I70.1 Atherosclerosis of renal artery; E66.9 Obesity, unspecified; Z79.4 Long term (current) use of insulin; Z79.899 Other long term (current) drug therapy; Z88.0 Allergy status to penicillin; Z88.2 Allergy status to sulfonamides; Z88.8 Allergy status to other drugs, medicaments and biological substances
CPT/HCPCS: 36415; 37236; 71045; 80048; 80061; 81001; 82962; 83735; 84145; 84484; 85025; 85347; 85610; 85651; 86140; 92928; 93005; 93306; 93458; 96365; 96375; 99152; 99153; 99284; C1725; C1769; C1876; C9600; J1644; J2405; Q9967; U0003

== ENCOUNTER 2021-01-07 04:40 | Emergency (ER) | payer MEDICARE, MEDICAID, SELFPAY ==
[2021-01-07 04:41] VITALS: BP 137/82; PULSE 78; RESP 18; TEMP 36.4; O2SAT 100; BMI 40.7
--- NOTE | 2021-01-07 05:08 | CT_ITS ---
PROCEDURE: CT ABDOMEN PELVIS W CON CLINICAL INDICATION: abdominal pain Nausea and vomiting open wounds abdomen COMPARISON: No exams were available for comparison TECHNIQUE: IV Contrast: 75ML Isovue 370 Oral Contrast None Axial images obtained with sagittal and coronal reformats. All CT scans at the facility use one or more dose reduction, viz: automated exposure control, ma/kV adjustment per patient size (including targeted exams where dose is matched to indication, i.e. head), or iterative reconstruction technique. FINDINGS: LOWER THORAX: No acute finding ABDOMEN & PELVIS: Prior cholecystectomy with mild biliary ectasia. No focal liver lesion. The spleen and right adrenal gland are unremarkable. There is mild pancreatic atrophy. There is mild prominence of the pancreatic duct measuring 4 mm. There is a 1 cm nodule of the left adrenal gland which is indeterminate. Prior left nephrectomy. There is mild cortical scarring of the right kidney. No renal or ureteral calculi. There has been a right aorto film bypass graft and a left aortoiliac bypass graft. The left iliac graft is occluded. There is also occlusion of both [place] common iliac arteries. There is a small supraumbilical hernia containing fat. No pelvic mass or abnormal fluid collection apparent. No evidence of appendicitis or diverticulitis. There are few scattered colonic diverticula noted. Stool ball is seen within the rectum. No acute bony findings. Subchondral sclerosis is noted involving the left femoral head consistent with avascular necrosis. IMPRESSION: 1. 6 cm stool ball within the rectum suggesting rectal fecal impaction. The 2. Indeterminate left adrenal nodule. Unenhanced CT suggested for further evaluation. 3. Left femoral head avascular necrosis. 4. 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
--- NOTE | 2021-01-07 05:08 | HMH.EDGENADL ---
ED Disposition Clinical Impression: Nausea Disposition: Home, Self-Care Condition on Discharge: Fair Instructions: DI for Nausea -- Adult Additional Instructions: Please follow-up with your PCP for further management of your nausea and constipation Please continue to take stool softeners with your opiates at home Follow-up with your vascular surgeon for further management of chronic occlusion of your aortobifemoral stent On your CT scan today we incidentally found a left adrenal gland nodule, please follow-up with your PCP for further observation and management Prescriptions: bisacodyL [Dulcolax 5mg Tablet] 5 mg PO DAILYP PRN #30 tablet.dr PRN Reason: Constipation Prescription Printed Ondansetron [Zofran 4mg ODT] 4 mg SL DAILYP PRN #8 tab PRN Reason: Nausea And Vomiting Prescription Printed Referrals: Preet Vazquez MD [Primary Care Provider] - - Critical Care Critical Care Time: No Attestation: On 01/07/21, the high probability of a clinically significant, sudden or life threatening deterioration of the following system(s) required my full and direct attention, intervention and personal management. The time I documented below is in addition to time spent performing reported procedures but includes the following listed in this critical care notation. Medical Decision Making - Medical Records Medical records reviewed: Yes: I reviewed the patient's medical records. - Heath Inquiry Pt receiving controlled substance: No Vital Signs: 01/07/21 04:41 Temperature 97.6 F Temperature Source Oral Pulse Rate [Right Radial] 78 Respiratory Rate 18 Blood Pressure [Right Arm] 137/82 Blood Pressure Mean [Right Arm] 100 Blood Pressure Source [Right Arm] Automatic Cuff Blood Pressure Position [Right Arm] Supine 02 Sat by Pulse Oximetry 100 Oxygen Delivery Method Room Air - Lab Data Lab Results 01/07/21 05:11: WBC 12.8 H, RBC 5.03, Hgb 13.8, Hct 42.2, MCV 83.9, MCH 27.5, MCHC 32.7, RDW 14.9, Plt Count 437 H, MPV 7.4, Neut % (Auto) 69.1, Lymph % (Auto) 22.7, [place] % (Auto) 4.2, Eos % (Auto) 3.0, Baso % (Auto) 1.0, Neut # (Auto) 8.8 H, Lymph # (Auto) 2.9, [place] # (Auto) 0.5, Eos # (Auto) 0.4, Baso # (Auto) 0.1 01/07/21 05:11: Sodium 142, Potassium 4.1, Chloride 113 H, Carbon Dioxide 18 L, Anion Gap 15.1 H, BUN 30 H, Creatinine 1.30 H, Estimated Creat Clear 69, Estimated GFR 41 L, Est GFR ( Amer) 49 L, Glucose 171 H, Calcium 10.3 H, Total Bilirubin 0.5, AST 20, ALT 15, Alkaline Phosphatase 117, Total Protein 8.1, Albumin 4.4, Globulin 3.7 H, Albumin/Globulin Ratio 1.2, Lipase 116 01/07/21 05:11: Lactate 1.7 01/07/21 06:55: Urine Color Yellow, Urine Appearance Sl cloudy, Urine pH 6.0, Ur Specific [place] 1.010, Urine Protein Trace, Urine Glucose (UA) Negative, Urine Ketones Trace, Urine Blood Trace-i, Urine Nitrate Negative, Urine Bilirubin Negative, Urine Urobilinogen 0.2, Ur Leukocyte Esterase Negative, Urine RBC 3-5, Ur Squamous Epith Cells 20-50 Result diagrams: 01/07/21 05:11 01/07/21 05:11 Orders (Tests/Meds): ED MEDICATIONS Generic Name Dose Route Start Last Admin Trade Name Freq PRN Reason Stop Dose Admin Sodium Chloride 1,000 mls @ 999 mls/hr 01/07/21 05:15 01/07/21 05:16 Sod Chlor 0.9% 1000ml Bag IV 01/07/21 06:15 999 mls/hr .Q1H1M ARMINDA Administration Discontinued Medications Generic Name Dose Route Start Last Admin Trade Name Freq PRN Reason Stop Dose Admin Iopamidol 75 ml 01/07/21 05:56 01/07/21 05:57 Iopamidol-370 (76%);100ml Bottle IV 01/07/21 05:57 75 ml ONCE ONE Administration Magnesium Citrate 1 bot 01/07/21 06:07 Magnesium Citrate 10oz Bottle PO 01/07/21 06:08 ONCE ONE Magnesium Hydroxide 30 ml 01/07/21 05:59 01/07/21 06:55 Milk Of Magnesia 30ml Udc PO 01/07/21 06:00 Not Given ONCE ONE Ondansetron HCl 4 mg 01/07/21 05:04 04/11/21 05:16 Ondansetron 4mg/2ml Vial IV 01/07/21 05:05 4 mg ONCE ONE Administration Sodium Ch
[2021-01-07 05:20] LABS: Basophils # 0.1 K/mm3 (0-0.2); Eosinophils # 0.4 K/mm3 (0.0-0.4); Hematocrit 42.2 % (37.0-47.0); Hemoglobin 13.8 g/dL (12.2-16.2); Lymphocytes # 2.9 K/mm3 (0.7-4.5); Lymphocytes % 22.7 % (10-50); Mean Corpuscular HGB Conc 32.7 g/dL (31.8-35.4); Mean Corpuscular Hemoglobin 27.5 pg (27.0-31.2); Mean Corpuscular Volume 83.9 fl (81-99); Mean Platelet Volume 7.4 fl (7.4-10.4); Monocytes # 0.5 K/mm3 (0.1-1.0); Monocytes % 4.2 % (1.7-9.3); Neutrophils # 8.8 K/mm3 (1.8-7.8); Neutrophils % 69.1 % (37.0-80.0); Platelet Count 437 K/mm3 (142-424); Red Blood Count 5.03 M/mm3 (4.20-5.40); Red Cell Distribution Width 14.9 % (11.5-17.5); White Blood Count 12.8 K/mm3 (4.8-10.8)
[2021-01-07 05:29] LABS: Chloride 113 mmol/L (98-107); Potassium 4.1 mmoL/L (3.5-5.1); Sodium 142 mmol/L (136-145)
[2021-01-07 05:32] LABS: Alanine Aminotransferase 15 U/L (12-78); Albumin Level 4.4 g/dl (3.5-5.0); Albumin/Globulin Ratio 1.2 (1.1-1.8); Alkaline Phosphatase 117 U/L (38-126); Anion Gap 15.1 mEq/L (5-15); Aspartate Amino Transferase 20 U/L (14-36); Bilirubin,Total 0.5 mg/dl (0.2-1.3); Blood Urea Nitrogen 30 mg/dl (7-17); Calcium 10.3 mg/dl (8.4-10.2); Carbon Dioxide 18 mmol/L (22.0-30.0); Creatinine Clearance Estimated 69 mL/min (50-200); Estimated Glomerular Filt Rate 41 ml/min (>60); GFR (African American) 49 ML/MIN (>60); Globulin 3.7 g/dL (1.3-3.2); Glucose 171 mg/dl (74-100); Lactic Acid 1.7 mmol/L (0.7-2.1); Lipase 116 U/L (23-300); Total Protein,Serum 8.1 g/dl (6.3-8.2)
--- NOTE | 2021-01-07 05:32 | PC.NURSE ---
pt refuses to let us leave blood pressure cuff in accurate placement on her arm. removed per her request.
--- NOTE | 2021-01-07 05:51 | PC.NURSE ---
pt remains with radiology
--- NOTE | 2021-01-07 06:11 | PC.NURSE ---
pt return from radiology
[2021-01-07 07:01] LABS: Microscopic, Urine URINE MICROSCOPIC (MICROSCOPIC)
[2021-01-07 07:04] LABS: Appearance,Urine SL CLOUDY (Clear); Bilirubin,Urine Negative (Negative); Blood, Urine TRACE-I (Negative); Color,Urine YELLOW (Yellow); Glucose,Urine (UA) Negative (Negative); Ketones,Urine TRACE (Negative); Leukocyte Esterase,Urine Negative (Negative); Nitrate,Urine Negative (Negative); Protein,Urine TRACE (Negative); Urobilinogen,Urine 0.2 EU/dl (0.2)
[2021-01-07 07:08] LABS: Squamous Epithelial Cell,Urine 20-50 #/hpf (0-5)
[2021-01-07 07:27] VITALS: BP 132/89; PULSE 78; RESP 18; TEMP 36.6; O2SAT 98
--- NOTE | 2021-01-08 04:51 | ECG_ITS ---
APPROVED REPORT Exam: Resting ECG HR:87 bpm ECG Measurements Heart Rate 87 AXES DE 116 P 23 QRSd 90 QRS 70 QT 370 T 264 QTc 445 Conclusion Normal sinus rhythm ST & T wave abnormality, consider inferior ischemia ST & T wave abnormality, consider anterolateral ischemia Abnormal ECG Electronically signed by : Preet Vazquez, 01/14/2021 07:37:49
== END 2021-01-07 07:29 | disposition home or self-care (01) ==
PROVIDERS: Emergency Provider Emergency Medicine; PCP Internal Medicine Adolescent Medicine
DX: R11.2 Nausea with vomiting, unspecified (principal); E11.9 Type 2 diabetes mellitus without complications; E78.5 Hyperlipidemia, unspecified; I25.2 Old myocardial infarction; I10 Essential (primary) hypertension; F17.210 Nicotine dependence, cigarettes, uncomplicated; Z88.0 Allergy status to penicillin; Z88.2 Allergy status to sulfonamides; Z89.612 Acquired absence of left leg above knee
CPT/HCPCS: 74177; 80053; 81001; 83605; 83690; 85025; 93005; 96365; 99283; J2405; Q9967

== ENCOUNTER 2021-01-25 11:51 | Emergency (ER) | payer MEDICARE, MEDICAID, SELFPAY ==
[2021-01-25 11:51] VITALS: BP 166/72; PULSE 78; RESP 16; TEMP 36.6; O2SAT 99; BMI 40.7
--- NOTE | 2021-01-25 11:51 | ECG_ITS ---
APPROVED REPORT Exam: Resting ECG HR:79 bpm ECG Measurements Heart Rate 79 AXES SD 132 P 53 QRSd 90 QRS 71 QT 434 T 129 QTc 497 Conclusion Sinus rhythm with marked sinus arrhythmia Nonspecific ST and T wave abnormality Prolonged QT Abnormal ECG Electronically signed by : Preet Vazquez, 01/26/2021 10:39:07
--- NOTE | 2021-01-25 12:02 | HMH.EDGENADL ---
ED Disposition Clinical Impression: Acute renal failure Disposition: Xfer Other Condition on Discharge: Good Referrals: Preet Vazquez MD [Primary Care Provider] - - Critical Care Critical Care Time: No Attestation: On 01/25/21, the high probability of a clinically significant, sudden or life threatening deterioration of the following system(s) required my full and direct attention, intervention and personal management. The time I documented below is in addition to time spent performing reported procedures but includes the following listed in this critical care notation. Medical Decision Making - Medical Records Medical records reviewed: Yes: I reviewed the patient's medical records. - Heath Inquiry Pt receiving controlled substance: No Vital Signs: 01/25/21 11:51 Temperature 97.9 F Temperature Source Oral Pulse Rate [Right] 78 Respiratory Rate 16 Blood Pressure [Right Arm] 166/72 H Blood Pressure Mean [Right Arm] 103 Blood Pressure Source [Right Arm] Automatic Cuff Blood Pressure Position [Right Arm] Sitting 02 Sat by Pulse Oximetry 99 Oxygen Delivery Method Room Air - Lab Data Lab Results 01/25/21 12:04: WBC 12.9 H, RBC 4.66, Hgb 13.2, Hct 40.6, MCV 87.1, MCH 28.3, MCHC 32.5, RDW 17.1, Plt Count 399, MPV 8.4, Neut % (Auto) 62.1, Lymph % (Auto) 29.8, [place] % (Auto) 5.6, Eos % (Auto) 1.8, Baso % (Auto) 0.7, Neut # (Auto) 8.0 H, Lymph # (Auto) 3.8, [place] # (Auto) 0.7, Eos # (Auto) 0.2, Baso # (Auto) 0.1 01/25/21 12:04: Sodium 138, Potassium 4.8, Chloride 103, Carbon Dioxide 10 L, Anion Gap 29.8 H, BUN 95 H, Creatinine 11.10 H, Estimated Creat Clear 8, Estimated GFR 3 L*, Est GFR ( Amer) 4 L*, Glucose 106 H, Calcium 10.0, Magnesium 2.7 H, Total Bilirubin 1.0, AST 23, ALT 14, Alkaline Phosphatase 126, Total Protein 8.5 H, Albumin 4.8, Globulin 3.7 H, Albumin/Globulin Ratio 1.3, Lipase 126 Result diagrams: 01/25/21 12:04 01/25/21 12:04 Orders (Tests/Meds): ED MEDICATIONS Discontinued Medications Generic Name Dose Route Start Last Admin Trade Name Elvira PRN Reason Stop Dose Admin Sodium Chloride 500 ml 01/25/21 12:00 Sodium Chloride 0.9% 500ml Bag IV 01/25/21 12:01 BOLUS ONE ORDERS Category Date Time Status CMP [Comprehensive Metabolic Panel] Stat Lab 01/25/21 12:04 Results Lipase Stat Lab 01/25/21 12:04 Results Magnesium Stat Lab 01/25/21 12:04 Results Thyroid Stimulating Hormone Stat Lab 01/25/21 12:04 Results Medical Decision Narrative: 65-year-old female presents with watery diarrhea for the last few days and she has 10 days of generalized weakness. Vital signs are normal, no abdominal tenderness or concern for acute abdomen. Electrolytes and labs obtained will attempt to obtain stool specimen, giving IV fluids as well, he has history of heart failure but last echocardiogram showed 55% ejection fraction and she has no evidence of pulmonary edema at this time. Creatinine returned at 11 up from 1.1 a few weeks ago. Potassium was normal at 4.8. Bicarb 10. Plan to give fluids cautiously with history of heart failure and discussed with Dr. Mae and he recommended transfer to because of possibility of CRRT as well as renal consult. I discussed with Dr. Jane Gar at the transfer center and plan to transfer to General Adult HPI - General Chief complaint: Weakness Stated complaint: weakness Time Seen by Provider: 01/25/21 11:55 Mode of Arrival: Wheelchair Limitations: No Limitations Description of Symptoms (Recalled from ER Triage Doc. by RN): Pt arrives to ER c/o weakness and that she has not eaten in 10 days. PT tearful and advises she just weak all over - History of Present Illness HPI narrative: With generalized weakness and fatigue for the last week. She says she has no fever no chills no nausea or vomiting. She is has had watery diarrhea for the last few days as well. No bloody diarrhea. She denies abdominal pain chest pain shortness o
[2021-01-25 12:19] LABS: Basophils # 0.1 K/mm3 (0-0.2); Basophils % 0.7 % (0.1-2.0); Eosinophils # 0.2 K/mm3 (0.0-0.4); Eosinophils % 1.8 % (0.1-12.0); Hematocrit 40.6 % (37.0-47.0); Hemoglobin 13.2 g/dL (12.2-16.2); Lymphocytes # 3.8 K/mm3 (0.7-4.5); Lymphocytes % 29.8 % (10-50); Mean Corpuscular HGB Conc 32.5 g/dL (31.8-35.4); Mean Corpuscular Hemoglobin 28.3 pg (27.0-31.2); Mean Corpuscular Volume 87.1 fl (81-99); Mean Platelet Volume 8.4 fl (7.4-10.4); Monocytes # 0.7 K/mm3 (0.1-1.0); Monocytes % 5.6 % (1.7-9.3); Neutrophils % 62.1 % (37.0-80.0); Platelet Count 399 K/mm3 (142-424); Red Blood Count 4.66 M/mm3 (4.20-5.40); Red Cell Distribution Width 17.1 % (11.5-17.5); White Blood Count 12.9 K/mm3 (4.8-10.8)
[2021-01-25 12:27] LABS: Chloride 103 mmol/L (98-107); Sodium 138 mmol/L (136-145)
[2021-01-25 12:28] LABS: Potassium 4.8 mmoL/L (3.5-5.1)
[2021-01-25 12:30] LABS: Alanine Aminotransferase 14 U/L (12-78); Albumin Level 4.8 g/dl (3.5-5.0); Albumin/Globulin Ratio 1.3 (1.1-1.8); Alkaline Phosphatase 126 U/L (38-126); Aspartate Amino Transferase 23 U/L (14-36); Creatinine Clearance Estimated 8 mL/min (50-200); Estimated Glomerular Filt Rate 3 ml/min (>60); GFR (African American) 4 ML/MIN (>60); Globulin 3.7 g/dL (1.3-3.2); Glucose 106 mg/dl (74-100); Lipase 126 U/L (23-300); Total Protein,Serum 8.5 g/dl (6.3-8.2)
[2021-01-25 12:31] LABS: Magnesium 2.7 mg/dl (1.6-2.3)
[2021-01-25 12:38] LABS: Anion Gap 29.8 mEq/L (5-15)
[2021-01-25 12:39] LABS: Blood Urea Nitrogen 95 mg/dl (7-17); Carbon Dioxide 10 mmol/L (22.0-30.0)
--- NOTE | 2021-01-25 12:48 | PC.NURSE ---
Dr Ramos speaking to Dr Vazquez
--- NOTE | 2021-01-25 12:54 | PC.NURSE ---
called for transfer center
[2021-01-25 13:14] VITALS: BP 116/44; PULSE 74; RESP 16; O2SAT 98
--- NOTE | 2021-01-25 13:15 | PC.NURSE ---
signed transfer record and report called to [facility] ED. Ramos notified of transfer
[2021-01-25 13:53] VITALS: BP 120/70; PULSE 65; RESP 16; TEMP 36.8; O2SAT 98
== END 2021-01-25 13:56 | disposition short-term general hospital (02) ==
PROVIDERS: Emergency Provider Emergency Medicine; PCP Internal Medicine Adolescent Medicine
DX: N17.9 Acute kidney failure, unspecified (principal); I10 Essential (primary) hypertension; E78.5 Hyperlipidemia, unspecified; I25.2 Old myocardial infarction; E03.9 Hypothyroidism, unspecified; Z88.0 Allergy status to penicillin; Z88.2 Allergy status to sulfonamides; Z91.048 Other nonmedicinal substance allergy status; Z79.899 Other long term (current) drug therapy
CPT/HCPCS: 80053; 83690; 83735; 84443; 85025; 93005; 96365; 99283

== ENCOUNTER 2021-02-19 16:13 | Emergency (ER) | payer MEDICARE, MEDICAID, SELFPAY ==
[2021-02-19] VITALS (9 sets, daily range): BP systolic 75–119; BP diastolic 32–88; PULSE 57–77; RESP 11–16; TEMP 36.5; O2SAT 97–99; BMI 40.7
--- NOTE | 2021-02-19 16:27 | XR_ITS ---
PROCEDURE INFORMATION: Exam: XR Chest Exam date and time: 02/19/2021 4:27 PM Age: 65 years old Clinical indication: Cough; Patient HX: HX of previous heart attacks TECHNIQUE: Imaging protocol: XR of the chest. Views: 1 view. Portable AP exam 5:11 p.m. COMPARISON: CR XR CHEST PORTABLE 11/22/2020 2:03 AM FINDINGS: Lungs: Slight interstitial prominence at the lung bases. No focal consolidation, as visualized. Normal lung volumes. Pleural spaces: Unremarkable. No significant pleural effusion. No pneumothorax. Heart/Mediastinum: The cardiac silhouette is at upper limits normal, considering portable AP technique. Vasculature: Calcified plaques in the aortic arch. Bones/joints: Spinal degenerative changes, multilevel disc narrowing and spondylosis. Bilateral acromioclavicular arthritis. IMPRESSION: No acute findings.
[2021-02-19 16:36] LABS: Basophils # 0.1 K/mm3 (0-0.2); Basophils % 0.8 % (0.1-2.0); Eosinophils # 0.2 K/mm3 (0.0-0.4); Monocytes # 0.5 K/mm3 (0.1-1.0); Neutrophils # 6.1 K/mm3 (1.8-7.8)
[2021-02-19 16:41] LABS: Lipase 79 U/L (23-300)
[2021-02-19 16:42] LABS: Alanine Aminotransferase 15 U/L (12-78); Albumin Level 3.6 g/dl (3.5-5.0); Alkaline Phosphatase 131 U/L (38-126); Anion Gap 13.1 mEq/L (5-15); Aspartate Amino Transferase 28 U/L (14-36); Bilirubin,Total 0.7 mg/dl (0.2-1.3); Blood Urea Nitrogen 27 mg/dl (7-17); Calcium 9.1 mg/dl (8.4-10.2); Carbon Dioxide 16 mmol/L (22.0-30.0); Chloride 111 mmol/L (98-107); Creatinine Clearance Estimated 64 mL/min (50-200); Estimated Glomerular Filt Rate 38 ml/min (>60); GFR (African American) 45 ML/MIN (>60); Globulin 3.5 g/dL (1.3-3.2); Glucose 103 mg/dl (74-100); Lactic Acid 1.3 mmol/L (0.7-2.1); Potassium 4.1 mmoL/L (3.5-5.1); Sodium 136 mmol/L (136-145); Total Protein,Serum 7.1 g/dl (6.3-8.2)
[2021-02-19 16:55] LABS: Troponin I 0.01 ng/ml (0.00-0.034)
[2021-02-19 16:57] LABS: Ammonia < 9 umol/L (9-30)
[2021-02-19 16:59] LABS: Acetone, Serum (Rapid) None Detected (None Detect)
--- NOTE | 2021-02-19 17:01 | PC.NURSE ---
Md is aware of pt's b/p and appears pt does sometimes runs hypotensive looking at old charts, no new orders given at this time.
--- NOTE | 2021-02-19 17:02 | ECG_ITS ---
APPROVED REPORT Exam: Resting ECG HR:63 bpm ECG Measurements Heart Rate 63 AXES MA 112 P 47 QRSd 90 QRS 63 QT 436 T -9 QTc 446 Conclusion Normal sinus rhythm ST abnormality, possible digitalis effect Abnormal QRS-T angle, consider primary T wave abnormality Abnormal ECG Electronically signed by : Preet Vazquez, 02/24/2021 07:36:13
--- NOTE | 2021-02-19 17:06 | CT_ITS ---
PROCEDURE INFORMATION: Exam: CT Abdomen And Pelvis Without Contrast Exam date and time: 02/19/2021 5:06 PM Age: 65 years old Clinical indication: Other: Diarrhea TECHNIQUE: Imaging protocol: Computed tomography of the abdomen and pelvis without contrast. Radiation optimization: All CT scans at this facility use at least one of these dose optimization techniques: automated exposure control; mA and/or kV adjustment per patient size (includes targeted exams where dose is matched to clinical indication); or iterative reconstruction. COMPARISON: CT ABDOMEN PELVIS W CON 01/07/2021 5:45 AM FINDINGS: Lungs: Tiny bilateral calcified pulmonary granulomas. Slight interstitial scarring or subsegmental atelectasis in the lungs. No focal consolidation, as visualized. Minimal cystic emphysematous change or pneumatocele, see right lower lobe series 3, image 12. Liver: The liver is normal. Gallbladder and bile ducts: Cholecystectomy clips. Biliary tree is within normal limits. No calcified stones. Pancreas: The pancreas is normal. Spleen: The spleen is normal. Adrenal glands: A 1 cm hypoattenuating left adrenal nodule again noted, HU density -15 on series 3, image 26, suggesting benign etiology such as adenoma.No follow-up is necessary. (Reference: [facility]) Unremarkable right adrenal. Kidneys and ureters: Post left nephrectomy. Multiple small hypoattenuating right renal cortical lesions are likely cysts, largest approximate 1.4 cm series 601, image 36 with HU density -2, but incompletely characterized on this nonenhanced exam.. Other subcentimeter lesions, too small to accurately characterize. Right renal vascular calcifications. No hydronephrosis, hydroureter, or obstructing ureteral stone. Stomach and bowel: There is diverticulosis coli, without evidence of acute diverticulitis. Decreased fecal distention of rectum and sigmoid compared with the prior exam, no significant dilatation or findings of colitis/proctitis on today's study. Scattered small intestinal air-fluid levels, no dilated loops or mucosal thickening.The stomach is normal. Appendix: A normal appendix is identified. Intraperitoneal space: There is no significant free intraperitoneal fluid. There is no free intraperitoneal air. Vasculature: [id number] atherosclerotic calcifications in the abdomen and pelvis. Aortobifemoral stents and bypass grafts, and right renal artery stent, not well evaluated on this nonenhanced exam. There is no aortic aneurysm. Lymph nodes: No significantly enlarged lymph nodes by short axis criteria. Urinary bladder: The bladder is nearly empty and not well evaluated. No calcified stones. No significant mural thickening. Reproductive: Uterus and adnexa are unremarkable. 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 Multilevel disc disease, spondylosis and facet arthropathy in the lumbar spine. Curvilinear density in the left femur head which could be degenerative arthritic change versus avascular necrosis, coronal series 601, image 48, unchanged in the interval. Soft tissues: Multiple small fatty ventral abdominal wall hernias, see sagittal series 602, image 67-73. No herniated bowel loops. Left inguinal soft tissue density is unchanged, probably scarring from previous surgery. There are no soft tissue masses or fluid collections. IMPRESSION: 1. There is diverticulosis coli, without evidence of acute diverticulitis. 2. Decreased fecal distention of the rectum compared with the exam from 01/07/2021, no evidence of colitis/proctitis on this study. 3. Scattered small intestinal air-fluid levels could be slight ileus o
--- NOTE | 2021-02-19 17:18 | PC.NURSE ---
pt going to CT
--- NOTE | 2021-02-19 17:23 | HMH.EDGENADL ---
ED Disposition Clinical Impression: PVD (peripheral vascular disease), Renal insufficiency, Enteritis HLD (hyperlipidemia) Qualifiers: Hyperlipidemia type: unspecified Qualified Code(s): E78.5 - Hyperlipidemia, unspecified Anemia Qualifiers: Anemia type: due to chronic kidney disease Chronic kidney disease stage: unspecified stage Qualified Code(s): N18.9 - Chronic kidney disease, unspecified; D63.1 - Anemia in chronic kidney disease Disposition: Still a Patient Condition on Discharge: Good Instructions: DI for Enteritis Referrals: Preet Vazquez MD [Primary Care Provider] - - Critical Care Critical Care Time: No Attestation: On 02/19/21, the high probability of a clinically significant, sudden or life threatening deterioration of the following system(s) required my full and direct attention, intervention and personal management. The time I documented below is in addition to time spent performing reported procedures but includes the following listed in this critical care notation. Medical Decision Making - Medical Records Medical records reviewed: Yes: I reviewed the patient's medical records. - Heath Inquiry Pt receiving controlled substance: No Vital Signs: 02/19/21 16:13 02/19/21 17:00 Temperature 97.7 F Temperature Source Oral Pulse Rate 66 Pulse Rate [Right] 77 Respiratory Rate 16 16 Blood Pressure 91/68 L Blood Pressure [Right Arm] 75/32 L Blood Pressure Mean [Right Arm] 46 Blood Pressure Source Automatic Cuff Blood Pressure Position Sitting 02 Sat by Pulse Oximetry 97 98 Oxygen Delivery Method Room Air Room Air - Lab Data Lab Results 02/19/21 16:20: WBC 8.4, RBC 3.07 L, Hgb 8.8 L, Hct 27.5 L, MCV 89.5, MCH 28.7, MCHC 32.1, RDW 19.0 H, Plt Count 583 H, MPV 8.3, Neut % (Auto) 72.6, Lymph % (Auto) 18.9, [place] % (Auto) 5.7, Eos % (Auto) 2.0, Baso % (Auto) 0.8, Neut # (Auto) 6.1, Lymph # (Auto) 1.6, [place] # (Auto) 0.5, Eos # (Auto) 0.2, Baso # (Auto) 0.1 02/19/21 16:20: Sodium 136, Potassium 4.1, Chloride 111 H, Carbon Dioxide 16 L, Anion Gap 13.1, BUN 27 H, Creatinine 1.40 H, Estimated Creat Clear 64, Estimated GFR 38 L, Est GFR ( Amer) 45 L, Glucose 103 H, Calcium 9.1, Total Bilirubin 0.7, AST 28, ALT 15, Alkaline Phosphatase 131 H, Troponin I 0.01, Total Protein 7.1, Albumin 3.6, Globulin 3.5 H, Albumin/Globulin Ratio 1.0 L, TSH 22.00 H 02/19/21 16:20: Lactate 1.3 02/19/21 16:20: PT 11.7, INR 0.99, APTT 29.6 02/19/21 16:20: Ammonia < 9 L 02/19/21 16:20: Lipase 79, Acetone Level None detected 02/19/21 19:10: Crossmatch (AHG) See Detail Result diagrams: 02/19/21 16:20 02/19/21 16:20 Orders (Tests/Meds): ED MEDICATIONS Generic Name Dose Route Start Last Admin Trade Name Freq PRN Reason Stop Dose Admin Sodium Chloride 250 mls @ 25 mls/hr 02/19/21 18:45 Sod Chlor 0.9% 250ml Bag IV 02/20/21 18:44 .Q10H ARMINDA Discontinued Medications Generic Name Dose Route Start Last Admin Trade Name Freq PRN Reason Stop Dose Admin Sodium Chloride 1,000 mls @ 999 mls/hr 02/19/21 16:30 02/19/21 16:32 Sod Chlor 0.9% 1000ml Bag IV 02/19/21 17:30 999 mls/hr .Q1H1M ARMINDA Administration Oxycodone/Acetaminophen 1 each 02/19/21 18:34 02/19/21 18:45 Oxycodone 7.5mg W/Apap 325mg Tablet PO 02/19/21 18:35 1 each ONCE ONE Administration ORDERS Category Date Time Status Blood transfusion [Red Blood Cells] Stat BBK 02/19/21 19:10 Results Type and Screen Stat BBK 02/19/21 19:10 Results Troponin I Q3H Lab 02/19/21 19:10 Received Troponin I Q3H Lab 02/19/21 22:30 Ordered Urinalysis and Microscopic Stat Lab 02/19/21 16:27 Ordered Blood Culture Stat Micro 02/19/21 16:15 Received - Reevaluation(s) Time: 19:56 Reevaluation #1: Patient does have some findings consistent with anemia. However the patient states that she has had this for quite some time and did receive blood transfusions at [facility]. She denies any active bleeding.
[2021-02-19 17:32] LABS: Activated Partial Thrombo Time 29.6 seconds (22.8-30.6); INR 0.99 (0.9-1.1); Prothrombin Time 11.7 seconds (10.1-12.5)
[2021-02-19 17:38] LABS: Hematocrit 27.5 % (37.0-47.0); Hemoglobin 8.8 g/dL (12.2-16.2); Lymphocytes # 1.6 K/mm3 (0.7-4.5); Lymphocytes % 18.9 % (10-50); Mean Corpuscular HGB Conc 32.1 g/dL (31.8-35.4); Mean Corpuscular Hemoglobin 28.7 pg (27.0-31.2); Mean Corpuscular Volume 89.5 fl (81-99); Mean Platelet Volume 8.3 fl (7.4-10.4); Monocytes % 5.7 % (1.7-9.3); Neutrophils % 72.6 % (37.0-80.0); Platelet Count 583 K/mm3 (142-424); Red Blood Count 3.07 M/mm3 (4.20-5.40); White Blood Count 8.4 K/mm3 (4.8-10.8)
--- NOTE | 2021-02-19 18:35 | PC.NURSE ---
Notified lab pt needed to be typed and screened
[2021-02-19 20:00] LABS: Troponin I 0.01 ng/ml (0.00-0.034)
--- NOTE | 2021-02-19 21:26 | PC.NURSE ---
pt updated on plan of action. Pt became agitated and sas she was going to go home. Pt informed she would have to sign out AMA if she did not want to wait. Pt verbalized understanding and said she will wait but also added the doctor better be giving me another pain pill .
[2021-02-20] VITALS (17 sets, daily range): BP systolic 101–156; BP diastolic 41–90; PULSE 55–64; RESP 14–18; TEMP 36.3–36.6; O2SAT 97–100
--- NOTE | 2021-02-20 00:01 | PC.NURSE ---
pt continues to rest with eyes closed. no complaints, at bedside.
--- NOTE | 2021-02-20 03:01 | PC.NURSE ---
pt awake and asking about poc. advised blood is in re getting crossed by [facility] and then it will have to return by employee counselor. pt clearly unhappy with plan. discussed signing out . will notify us if they decide to.
--- NOTE | 2021-02-20 04:45 | PC.NURSE ---
at desk asking how much longer. we advised him the blood had arrived back at [facility] but was now being cross matched by our lab.
--- NOTE | 2021-02-20 07:44 | PC.NURSE ---
Received report from DELMER Rivera. Pt blood had been started at 0650, monitoring was ongoing. There were no issues at this time. Plan is for patient to still be discharged after blood has been completed.
--- NOTE | 2021-02-20 09:15 | PC.NURSE ---
Pt was yelling out for nurses. I went into the room and the patient was yelling out, pt had been tearful and just saying that she wanted the infusion to stop and she was ready to go. Stopped pt's transfusion at this time, explained all the risks/benefits of not completing the transfusion. Pt stated she understood and DELMER Angel was room in the room as a witness. IV's removed and pt assisted over to w/c. Pt signed AMA form and left ED at this time. PT had tolerated transfusion well and v/s remained normal. Pt went to lobby to wait on .
== END 2021-02-20 09:40 | disposition home or self-care (01) ==
PROVIDERS: Emergency Provider Emergency Medicine; PCP Internal Medicine Adolescent Medicine
DX: N28.9 Disorder of kidney and ureter, unspecified (principal); K52.9 Noninfective gastroenteritis and colitis, unspecified; I73.9 Peripheral vascular disease, unspecified; E11.9 Type 2 diabetes mellitus without complications; I10 Essential (primary) hypertension; I25.2 Old myocardial infarction; F17.210 Nicotine dependence, cigarettes, uncomplicated; E78.5 Hyperlipidemia, unspecified; N18.9 Chronic kidney disease, unspecified
CPT/HCPCS: 36430; 71045; 74176; 80053; 82009; 82140; 83605; 83690; 84443; 84484; 85025; 85610; 85730; 86850; 86870; 87040; 87077; 87186; 93005; 96365; 99283; P9016

== ENCOUNTER 2021-06-12 20:49 | Emergency (ER) | payer MEDICARE, MEDICAID, SELFPAY ==
[2021-06-12 20:45] VITALS: BP 176/78; PULSE 90; RESP 20; TEMP 36.8; O2SAT 979; BMI 34.9
[2021-06-12 21:40] LABS: POC Glucose,Bedside 126 (70-110)
[2021-06-12 21:41] VITALS: BMI 34.9
--- NOTE | 2021-06-12 21:44 | XR_ITS ---
PROCEDURE INFORMATION: Exam: XR Chest Exam date and time: 06/12/2021 9:44 PM Age: 65 years old Clinical indication: Other: Generalized weakness TECHNIQUE: Imaging protocol: XR of the chest. Views: 1 view. COMPARISON: CR XR CHEST PORTABLE 02/19/2021 5:10 PM FINDINGS: Lungs: No consolidation. Pleural spaces: No pneumothorax. Heart/Mediastinum: No cardiomegaly. Bones/joints: No acute abnormality. IMPRESSION: No acute findings.
[2021-06-12 21:45] LABS: Microscopic, Urine URINE MICROSCOPIC (MICROSCOPIC)
[2021-06-12 21:51] LABS: Appearance,Urine CLOUDY (Clear); Blood, Urine 1+ (Negative); Color,Urine DK YELLOW (Yellow); Glucose,Urine (UA) Negative (Negative); Ketones,Urine TRACE (Negative); Leukocyte Esterase,Urine 2+ (Negative); Nitrate,Urine POSITIVE (Negative); Protein,Urine 1+ (Negative); Specific Gravity, Urine 1.025 (1.005-1.030)
[2021-06-12 22:01] LABS: Bilirubin,Urine 1+ (Negative)
[2021-06-12 22:03] LABS: Basophils % 0.3 % (0.1-2.0); Eosinophils # 0.1 K/mm3 (0.0-0.4); Eosinophils % 1.6 % (0.1-12.0); Hematocrit 33.5 % (37.0-47.0); Lymphocytes # 1.9 K/mm3 (0.7-4.5); Lymphocytes % 33.9 % (10-50); Mean Corpuscular Hemoglobin 29.5 pg (27.0-31.2); Mean Corpuscular Volume 89.5 fl (81-99); Mean Platelet Volume 6.6 fl (7.4-10.4); Monocytes # 0.3 K/mm3 (0.1-1.0); Monocytes % 4.7 % (1.7-9.3); Neutrophils # 3.4 K/mm3 (1.8-7.8); Neutrophils % 59.6 % (37.0-80.0); Platelet Count 429 K/mm3 (142-424); Red Blood Count 3.74 M/mm3 (4.20-5.40); White Blood Count 5.7 K/mm3 (4.8-10.8)
[2021-06-12 22:05] LABS: Bacteria,Urine 1+ /lpf; WBC,Urine 20-50 #/hpf (0-3)
[2021-06-12 22:10] LABS: Alanine Aminotransferase 10 U/L (12-78); Albumin Level 2.9 g/dl (3.5-5.0); Albumin/Globulin Ratio 0.9 (1.1-1.8); Alkaline Phosphatase 133 U/L (38-126); Aspartate Amino Transferase 19 U/L (14-36); Bilirubin,Total 0.5 mg/dl (0.2-1.3); Blood Urea Nitrogen 15 mg/dl (7-17); Calcium 9.1 mg/dl (8.4-10.2); Carbon Dioxide 26 mmol/L (22.0-30.0); Chloride 105 mmol/L (98-107); Creatinine Clearance Estimated 77 mL/min (50-200); Estimated Glomerular Filt Rate 55 ml/min (>60); GFR (African American) 67 ML/MIN (>60); Globulin 3.1 g/dL (1.3-3.2); Glucose 105 mg/dl (74-100); Magnesium 1.6 mg/dl (1.6-2.3); Sodium 138 mmol/L (136-145)
[2021-06-12 22:13] LABS: Acetaminophen < 10 ug/ml (10-30); Amphetamine/Metha Screen,Urine Negative ng/ml (<1000); Barbiturates Screen,Urine Negative ng/ml (<200); Salicylate < 1.0 mg/dL (2.0-20.0)
[2021-06-12 22:14] LABS: Benzodiazepines Screen,Urine Positive ng/ml (<200)
[2021-06-12 22:15] LABS: Acetone, Serum (Rapid) None Detected (None Detect); C-Reactive Protein 56.5 mg/L (0-4); Cannabinoid Screen,Urine Negative ng/ml (<50); Cocaine Screen,Urine Negative ng/ml (<300)
[2021-06-12 22:16] LABS: Methadone Screen,Urine Negative ng/ml (<300)
[2021-06-12 22:17] LABS: Opiate Screen,Urine Negative ng/ml (<300); Phencyclidine Screen,Urine Negative ng/ml (<25)
[2021-06-12 22:24] LABS: NT Pro Brain Natriuretic Pep. 1500 pg/mL (0-125); Troponin I 0.03 ng/ml (0.00-0.034)
--- NOTE | 2021-06-12 22:26 | HMH.EDNVD ---
ED Disposition Clinical Impression: Hypokalemia, Elevated serum free T4 level, Skin infection UTI (urinary tract infection) Qualifiers: Urinary tract infection type: site unspecified Hematuria presence: without hematuria Qualified Code(s): N39.0 - Urinary tract infection, site not specified Diabetes mellitus Qualifiers: Diabetes mellitus type: type 2 Diabetes mellitus long-term insulin use: unspecified long-term insulin use status Diabetes mellitus complication status: with other specified complication Qualified Code(s): E11.69 - Type 2 diabetes mellitus with other specified complication Disposition: Home, Self-Care Condition on Discharge: Good Instructions: DI for Urinary Tract Infection (UTI) Additional Instructions: fluids and use meds and keep appt friday with pcp and hold thyroid med Prescriptions: levoFLOXacin [Levaquin 500mg tab] 500 mg PO DAILY #7 tab Transmission Status: Pending to [facility] ondansetron HCL [Zofran 4mg Tab] 4 mg PO TID #30 tab Transmission Status: Pending to [facility] Referrals: Provider,Referral, [Referring] - - Critical Care Critical Care Time: No Attestation: On 06/12/21, the high probability of a clinically significant, sudden or life threatening deterioration of the following system(s) required my full and direct attention, intervention and personal management. The time I documented below is in addition to time spent performing reported procedures but includes the following listed in this critical care notation. Medical Decision Making - Medical Records Medical records reviewed: Yes: I reviewed the patient's medical records. - Heath Inquiry Pt receiving controlled substance: No Vital Signs: 06/12/21 20:45 Temperature 98.2 F Temperature Source Oral Pulse Rate [Right] 90 Respiratory Rate 20 Blood Pressure [Right Arm] 176/78 H Blood Pressure Mean [Right Arm] 110 Blood Pressure Source [Right Arm] Automatic Cuff 02 Sat by Pulse Oximetry 979 H Oxygen Delivery Method Room Air - Lab Data Lab results reviewed: Yes: I reviewed the patient's lab results. Lab Results 06/12/21 21:23: POC Glucose 126 H 06/12/21 21:25: Urine Color Dk yellow, Urine Appearance Cloudy, Urine pH 6.0, Ur Specific [place] 1.025, Urine Protein 1+, Urine Glucose (UA) Negative, Urine Ketones Trace, Urine Blood 1+, Urine Nitrate Positive, Urine Bilirubin 1+ A, Urine Urobilinogen 1.0, Ur Leukocyte Esterase 2+ A, Urine RBC 3-5, Urine WBC 20-50, Ur Squamous Epith Cells 3-5, Urine Bacteria 1+ 06/12/21 21:30: WBC 5.7, RBC 3.74 L, Hgb 11.0 L, Hct 33.5 L, MCV 89.5, MCH 29.5, MCHC 33.0, RDW 17.0, Plt Count 429 H, MPV 6.6 L, Neut % (Auto) 59.6, Lymph % (Auto) 33.9, [place] % (Auto) 4.7, Eos % (Auto) 1.6, Baso % (Auto) 0.3, Neut # (Auto) 3.4, Lymph # (Auto) 1.9, [place] # (Auto) 0.3, Eos # (Auto) 0.1, Baso # (Auto) 0.0, ESR > 140 H 06/12/21 21:30: Sodium 138, Potassium 3.0 L, Chloride 105, Carbon Dioxide 26, Anion Gap 10.0, BUN 15, Creatinine 1.00, Estimated Creat Clear 77, Estimated GFR 55 L, Est GFR ( Amer) 67, Glucose 105 H, Calcium 9.1, Magnesium 1.6, Total Bilirubin 0.5, AST 19, ALT 10 L, Alkaline Phosphatase 133 H, Troponin I 0.03, C-Reactive Protein 56.5 H, NT-Pro-B Natriuret Pep 1500 H, Total Protein 6.0 L, Albumin 2.9 L, Globulin 3.1, Albumin/Globulin Ratio 0.9 L, Procalcitonin 0.130, Salicylates < 1.0 L, Acetaminophen < 10 L, Acetone Level None detected 06/12/21 21:30: Urine Opiates Screen Negative, Urine Methadone Screen Negative, Ur Barbituates Screen Negative, Ur Phencyclidine Scrn Negative, Ur Amphetamines Screen Negative, U Benzodiazepines Scrn Positive H, Urine Cocaine Screen Negative, U Marijuana (THC) Screen Negative 06/12/21 21:30: TSH < 0.02 L, Thyroxine (T4) 20.4 H Result diagrams: 06/12/21 21:30 06/12/21 21:30 Orders (Tests/Meds): ED MEDICATIONS Generic Name Dose Route Start Last Admin Trade Name Freq PRN Reason Stop Dose Admin Sodium Chloride
[2021-06-12 22:43] LABS: T4 (Thyroxine) 20.4 ug/dl (5.53-11.0)
[2021-06-12 22:46] LABS: Erythrocyte Sedimentation Rate > 140 mm/hr (0-30)
[2021-06-12 22:57] LABS: Thyroid Stimulating Hormone < 0.02 uIU/mL (0.465-4.68)
--- NOTE | 2021-06-12 23:05 | PC.NURSE ---
patient refused COVID swab
--- NOTE | 2021-06-12 23:57 | PC.NURSE ---
2129 - Pt. son called to speak to staff regarding a transfer to for patient. Pt. son was very irate and cursing staff. The call was handed to this RN as the housekeeper child care to handle. Pt. son was belligerent, and would not let me speak to explain the process to transfer from this facility to another facility. Pt. son stated I already got clearance from Dr. Espinal's, her rehab doctor that they would accept her no matter how she arrived whether it be a car, taxi, or ambulance. This RN attempted MULTIPLE times to explain that the process for transfers from this facility to another facility require an accepting doctor, and a diagnosis requiring transfer. Pt. son continued to yell and scream at this RN, and curse this RN. Pt. son stated so now you are holding her against her will, and refusing to transfer her after I was told it would happen . Explained to pt. son that his mother would require certain interventions/workup be performed at this facility for the MD to have a diagnosis prior to any phone discussions with MD's to inquire about a transfer. Dr Blood made aware of this phone call by other ED Staff at this time. He instructed to inform the pt. son that if he did not feel comfortable with this facility's process, he was welcome to have her sign out AMA so that he could take her to another facility. Pt. son continued to curse and yell and be belligerent with this RN. Pt. son hung up on this RN. CNO made aware of issue at 2144.
--- NOTE | 2021-06-12 23:59 | PC.NURSE ---
2300 - Spoke to patient's son and updated him on current results of blood work, urine specimen, and radiology results. Informed him of what medications were given to patient, and updated on current status of patient. Pt is son agreeable to plan of care at this time, and is being cooperative with staff. He asked if he was able to go back to visit with his mother, informed him of current visitor policy, and he stated he would wait in the parking lot in his vehicle. His phone number was obtained by staff at this time to keep him informed. At this time, stated patient would be discharged after her IVF and Abx were finished infusing.
[2021-06-13 00:35] VITALS: BP 166/73; PULSE 87; RESP 20; TEMP 36.8; O2SAT 99
== END 2021-06-13 00:37 | disposition home or self-care (01) ==
PROVIDERS: Emergency Provider Emergency Medicine; PCP Family Medicine
DX: N30.00 Acute cystitis without hematuria (principal); B96.4 Proteus (mirabilis) (morganii) as the cause of diseases classified elsewhere; L08.9 Local infection of the skin and subcutaneous tissue, unspecified; E11.69 Type 2 diabetes mellitus with other specified complication; I10 Essential (primary) hypertension; I25.2 Old myocardial infarction; E78.5 Hyperlipidemia, unspecified; E87.6 Hypokalemia; Z79.899 Other long term (current) drug therapy; Z88.0 Allergy status to penicillin; Z88.2 Allergy status to sulfonamides; R06.09 Other forms of dyspnea
CPT/HCPCS: 71045; 80053; 80305; 80329; 81001; 82009; 82962; 83735; 83880; 84145; 84436; 84443; 84484; 85025; 85651; 86140; 87086; 87088; 87186; 96365; 96366; 96375; 99283; J2405

== ENCOUNTER 2021-06-30 09:57 | Observation (INO) | payer MEDICARE, SELFPAY ==
[2021-06-30] VITALS (13 sets, daily range): BP systolic 146–166; BP diastolic 64–85; PULSE 70–89; RESP 17–22; TEMP 36.4–36.5; O2SAT 96–100; BMI 27.6
--- NOTE | 2021-06-30 09:49 | HMH.EDGENADL ---
ED Disposition Clinical Impression: Elevated troponin, Anorexia Depression Qualifiers: Depression Type: unspecified Qualified Code(s): F32.A - Depression, unspecified Decubitus ulcers Qualifiers: Pressure injury location: unspecified location Pressure injury stage: stage 3 Qualified Code(s): L89.93 - Pressure ulcer of unspecified site, stage 3 Disposition: Admitted as Observation Condition on Discharge: Fair Referrals: Rosalina Hong [Primary Care Provider] - - Critical Care Critical Care Time: No Attestation: On , the high probability of a clinically significant, sudden or life threatening deterioration of the following system(s) required my full and direct attention, intervention and personal management. The time I documented below is in addition to time spent performing reported procedures but includes the following listed in this critical care notation. Medical Decision Making - Heath Inquiry Pt receiving controlled substance: No Vital Signs: 06/30/21 09:46 06/30/21 10:00 06/30/21 10:30 Temperature 97.6 F Temperature Source Oral Pulse Rate 71 79 Pulse Rate [Left Radial] 81 Respiratory Rate 18 17 Blood Pressure 159/75 H 155/85 H Blood Pressure [Right Arm] 146/64 H Blood Pressure Mean 103 108 Blood Pressure Mean [Right Arm] 91 Blood Pressure Source [Right Arm] Automatic Cuff Blood Pressure Position [Right Arm] Sitting 02 Sat by Pulse Oximetry 96 98 97 Oxygen Delivery Method Room Air 06/30/21 11:00 06/30/21 11:30 Temperature Temperature Source Pulse Rate 88 89 Pulse Rate [Left Radial] Respiratory Rate 18 17 Blood Pressure 161/78 H 154/80 H Blood Pressure [Right Arm] Blood Pressure Mean 102 104 Blood Pressure Mean [Right Arm] Blood Pressure Source [Right Arm] Blood Pressure Position [Right Arm] 02 Sat by Pulse Oximetry 99 98 Oxygen Delivery Method - Lab Data Lab Results 06/30/21 10:50: WBC 7.3, RBC 3.81 L, Hgb 11.0 L, Hct 34.5 L, MCV 90.5, MCH 28.8, MCHC 31.8, RDW 18.5 H, Plt Count 626 H, MPV 7.9, Neut % (Auto) 71.2, Lymph % (Auto) 21.2, [place] % (Auto) 5.9, Eos % (Auto) 1.0, Baso % (Auto) 0.6, Neut # (Auto) 5.2, Lymph # (Auto) 1.6, [place] # (Auto) 0.4, Eos # (Auto) 0.1, Baso # (Auto) 0.1 06/30/21 10:50: Sodium 134 L, Potassium 3.4 L, Chloride 101, Carbon Dioxide 24, Anion Gap 12.4, BUN 10, Creatinine 0.80, Estimated Creat Clear 61, Estimated GFR 72, Est GFR ( Amer) 87, Glucose 79, Calcium 9.1, Total Bilirubin 1.1, AST 19, ALT 10 L, Alkaline Phosphatase 110, Troponin I 0.14 H, Total Protein 6.2 L, Albumin 3.1 L, Globulin 3.1, Albumin/Globulin Ratio 1.0 L, TSH 0.68 06/30/21 10:50: Urine Color [place], Urine Appearance Sl cloudy, Urine pH 6.0, Ur Specific [place] 1.020, Urine Protein Trace, Urine Glucose (UA) Negative, Urine Ketones 1+, Urine Blood Negative, Urine Nitrate Negative, Urine Bilirubin 3+ A, Urine Urobilinogen 1.0, Ur Leukocyte Esterase Negative, Urine RBC None, Urine WBC None, Ur Squamous Epith Cells None, Urine Bacteria Trace 06/30/21 10:50: Free T4 1.01 06/30/21 10:50: SARS-CoV-2 (PCR) Not detected, Influenza A Untype (PCR) Not detected, Influenza Type B (PCR) Not detected Result diagrams: 06/30/21 10:50 06/30/21 10:50 Orders (Tests/Meds): ORDERS Category Date Time Status Troponin I Q3H Lab 06/30/21 13:30 Ordered Troponin I Q3H Lab 06/30/21 16:30 Ordered - Radiology Data #1 Image(s): Chest Image Reviewed: Yes I reviewed the patient's radiology image, Yes I have reviewed radiologist's interpretation PROCEDURE INFORMATION: Exam: XR Chest Exam date and time: 06/30/2021 10:23 AM Age: 65 years old Clinical indication: Shortness of breath; Additional info: Weakness fatigue TECHNIQUE: Imaging protocol: XR of the chest. Views: 1 view. COMPARISON: CR XR CHEST PORTABLE 06/12/2021 9:53 PM FINDINGS: Lungs: Unremarkable. No consolidation. Pleural spaces: Unremarkable. No pleural effusion. No pneumotho
--- NOTE | 2021-06-30 09:55 | ECG_ITS ---
APPROVED REPORT Exam: Resting ECG HR:77 bpm ECG Measurements Heart Rate 77 AXES QRSd 82 QRS 68 QT 332 T 85 QTc 375 Conclusion Atrial fibrillation with a competing junctional pacemaker Nonspecific T wave abnormality, probably digitalis effect Abnormal ECG Electronically signed by : Preet Vazquez MD 07/01/2021 09:19:09
--- NOTE | 2021-06-30 10:23 | XR_ITS ---
PROCEDURE INFORMATION: Exam: XR Chest Exam date and time: 06/30/2021 10:23 AM Age: 65 years old Clinical indication: Shortness of breath; Additional info: Weakness fatigue TECHNIQUE: Imaging protocol: XR of the chest. Views: 1 view. COMPARISON: CR XR CHEST PORTABLE 06/12/2021 9:53 PM FINDINGS: Lungs: Unremarkable. No consolidation. Pleural spaces: Unremarkable. No pleural effusion. No pneumothorax. Heart/Mediastinum: Unremarkable. No cardiomegaly. Bones/joints: Unremarkable. IMPRESSION: No acute findings.
--- NOTE | 2021-06-30 10:42 | PC.NURSE ---
Xray in room.
[2021-06-30 11:04] LABS: Coronavirus 19, PCR Not Detected (NotDetected); Influenza A, PCR Not Detected (NotDetected); Influenza B, PCR Not Detected (NotDetected)
[2021-06-30 11:06] LABS: Basophils # 0.1 K/mm3 (0-0.2); Basophils % 0.6 % (0.1-2.0); Eosinophils # 0.1 K/mm3 (0.0-0.4); Hematocrit 34.5 % (37.0-47.0); Lymphocytes # 1.6 K/mm3 (0.7-4.5); Lymphocytes % 21.2 % (10-50); Mean Corpuscular HGB Conc 31.8 g/dL (31.8-35.4); Mean Corpuscular Hemoglobin 28.8 pg (27.0-31.2); Mean Corpuscular Volume 90.5 fl (81-99); Mean Platelet Volume 7.9 fl (7.4-10.4); Monocytes # 0.4 K/mm3 (0.1-1.0); Monocytes % 5.9 % (1.7-9.3); Neutrophils # 5.2 K/mm3 (1.8-7.8); Neutrophils % 71.2 % (37.0-80.0); Platelet Count 626 K/mm3 (142-424); Red Blood Count 3.81 M/mm3 (4.20-5.40); Red Cell Distribution Width 18.5 % (11.5-17.5); White Blood Count 7.3 K/mm3 (4.8-10.8)
[2021-06-30 11:12] LABS: Microscopic, Urine URINE MICROSCOPIC (MICROSCOPIC)
[2021-06-30 11:15] LABS: Alanine Aminotransferase 10 U/L (12-78); Albumin Level 3.1 g/dl (3.5-5.0); Alkaline Phosphatase 110 U/L (38-126); Anion Gap 12.4 mEq/L (5-15); Appearance,Urine SL CLOUDY (Clear); Aspartate Amino Transferase 19 U/L (14-36); Bilirubin,Total 1.1 mg/dl (0.2-1.3); Blood Urea Nitrogen 10 mg/dl (7-17); Blood, Urine Negative (Negative); Calcium 9.1 mg/dl (8.4-10.2); Carbon Dioxide 24 mmol/L (22.0-30.0); Chloride 101 mmol/L (98-107); Color,Urine ORANGE (Yellow); Creatinine Clearance Estimated 61 mL/min (50-200); Estimated Glomerular Filt Rate 72 ml/min (>60); GFR (African American) 87 ML/MIN (>60); Globulin 3.1 g/dL (1.3-3.2); Glucose 79 mg/dl (74-100); Glucose,Urine (UA) Negative (Negative); Ketones,Urine 1+ (Negative); Leukocyte Esterase,Urine Negative (Negative); Nitrate,Urine Negative (Negative); Potassium 3.4 mmoL/L (3.5-5.1); Protein,Urine TRACE (Negative); Sodium 134 mmol/L (136-145); Total Protein,Serum 6.2 g/dl (6.3-8.2)
[2021-06-30 11:24] LABS: Bilirubin,Urine 3+ (Negative)
[2021-06-30 11:27] LABS: Bacteria,Urine Trace /lpf; Troponin I 0.14 ng/ml (0.00-0.034)
[2021-06-30 11:39] LABS: Free T4 (Free Thyroxine) 1.01 ng/dl (0.78-2.19)
--- NOTE | 2021-06-30 11:42 | PC.NURSE ---
Called to have Dr. Mae paged
[2021-06-30 11:45] LABS: Thyroid Stimulating Hormone 0.68 uIU/mL (0.465-4.68)
--- NOTE | 2021-06-30 13:10 | PC.NURSE ---
report given to Kacy DOWELL
--- NOTE | 2021-06-30 13:33 | PC.NURSE ---
Pt arrived on floor at this time via stretcher.
[2021-06-30 14:46] LABS: Troponin I 0.14 ng/ml (0.00-0.034)
--- NOTE | 2021-06-30 14:56 | PC.NURSE ---
Pt wishes to be a DNR, pt discussed this with her with this RN present. DNR paperwork signed by (pt stated she wanted him to sign d/t her being too cold ) and DNR bracelet placed on pt. While completing med rec, pt would state she didnt know when she took her medications last but shortly after said i take (3) 400mg gabapentins every nights-my doesnt give me any of my other medications Photo consent obtained and signed by pt's . Photos of decubitus ulcers to follow.
--- NOTE | 2021-06-30 17:52 | P.CONPHA_ITS ---
[facility] Pharmacy VTE Monitoring - Patient Demographics Admission date: 06/30/21 Report Date: 06/30/21 Time: 17:52 Allergies/Adverse Reactions: Patient Allergies penicillin G [PENICILLIN G] Allergy (Mild, Verified 11/29/20 14:15) Sulfa (Sulfonamide Antibiotics) [SULFA (SULFONAMIDE ANTIBIOTICS)] Allergy (Mild, Verified 11/29/20 14:15) adhesive tape Adverse Reaction (Mild, Verified 11/29/20 14:15) Height: 1.6 m Weight: 70.76 kg Patient Problems: Current Active Problems Elevated troponin (Acute) Depression (Acute) Anorexia (Acute) Decubitus ulcers (Acute) - VTE Risk Labs: VTE Related Lab Results Hgb 11.0 g/dL (12.2-16.2) L 06/30/21 10:50 Hct 34.5 % (37.0-47.0) L 06/30/21 10:50 Plt Count 626 K/mm3 (142-424) H 06/30/21 10:50 BUN 10 mg/dl (7-17) 06/30/21 10:50 Creatinine 0.80 mg/dl (0.52-1.04) 06/30/21 10:50 Estimated Creat Clear 61 mL/min (50-200) 06/30/21 10:50 Was VTE Risk Assessment Performed: No Clinical Trial Participant: No - Prophylaxis VTE Prophylaxis Ordered?: Yes Types of VTE Prophylaxis: TEDS Knee High Location of Applied Device: Bilateral Lower Extremeties
--- NOTE | 2021-06-30 17:52 | HMH.PHAINT ---
MEDICATION RECONCILIATION COMPLETE USING EXTERNAL PHARMACY FILL HISTORY AND MOST RECENT MD OFFICE VISIT.
[2021-06-30 18:01] LABS: Troponin I 0.13 ng/ml (0.00-0.034)
[2021-07-01] VITALS: PULSE 60
[2021-07-01 01:50] LABS: POC Glucose,Bedside 88 (70-110)
[2021-07-01 04:00] VITALS: BP 133/65; PULSE 63; RESP 14; TEMP 36.6; O2SAT 96
[2021-07-01 05:21] VITALS: BMI 28.3
--- NOTE | 2021-07-01 07:15 | PC.NURSE ---
Shift summary. No acute changes. Pt has rested t/o most of shift. No complaints voiced to staff. Borden catheter in place draining clear steven/orange urine to gravity. VSS.
[2021-07-01 08:00] VITALS: BP 127/63; PULSE 66; PULSE 67; RESP 16; TEMP 36.7; O2SAT 94; O2SAT 95
--- NOTE | 2021-07-01 08:04 | HMH.HP ---
*Admission Date: 06/30/21 *Chief complaint: Lethargy/dehydration/fatigue *History of present illness: Brought in by ambulance. States that she is dehydrated and depressed. Says she has not eaten anything in 2 weeks, has no appetite. She says she has been drinking ice water. She complains also of having some bedsores on her lower abdomen, groin, and buttocks. She says these have been present for about 2 weeks. She says that she puts the chucks underneath herself but has no control of her urine and lays in urine. She has a prior left [id number] amputation. She says her is in his 70s and cannot care for her. She saw her primary care provider yesterday and states that she beg her to put her in the hospital but she says her primary care provider told her that she could not help her. She says that she was there to have a potassium level rechecked and her potassium was a little low. Her primary care provider is in [place]. Above note per emergency department. Patient is an ex patient of my practice who has a long history of depression, multiple comorbid conditions mostly related to inveterate, heavy and long-term cigarette use, with vascular disease, cardiovascular disease, chronic wounds, history of osteomyelitis and gangrene of the left lower extremity that required left above-knee amputation. She is wheelchair-bound. She has emphysema and continues to smoke heavily. She has a long history of recurrent depression and has been admitted frequently to hospital for supportive care, dehydration and multiple etiologies. She arrived at the ER with a history as above. Have not seen her for several months as she is transferred care to [place] given her displeasure with my declining to admit her to the hospital for her frequent nausea exacerbations. She, on work-up in the ER, was found to have mildly elevated troponins, the electrolyte abnormalities noted above, weight loss from previous exams, significant wound issues and evidence of significant malnutrition. When I discussed with her her case this morning she states 3 weeks ago I just went down. She really does not explain an event that caused this, just notes that she stopped eating. She denies diarrhea or significant vomiting. Reports that her pain is been fairly well controlled. Denies any kind of new medication, medication cessation or other things that might of tipped her over into the state. [facility] History I have reviewed the patient's past medical history: Yes Medical History: Reports:: Coronary Artery Disease, Diabetes Mellitus Type 2, Hyperlipidemia, Hypertension, MRSA, Myocardial Infarction, Peripheral Vascular Disease Denies:: Cancer, Diabetes Mellitus Type 1 *Have you ever received a pneumonia vaccine?: Yes *Have you received a flu vaccine this season?: Yes Other Medical History: Reports: Anemia, Cataracts, Sinus Problems, Thyroid Disease Laterality Cases: Right: Other, Bilateral: Tonsillectomy Other Surgeries: Yes: CABG, Cardiac Catheterization, Cholecystectomy, , Thyroidectomy Amputation: Yes (girma L side) Fractures: Yes - *Social History Smoking Status: Current every day smoker Tobacco Type: cigarettes # Packs/Day (cigarettes): 2 Alcohol Intake: never Alcohol Intake Frequency:: other Substance Use Type: denies use *Occupational Status:: disabled Housing: house Household Members: spouse *Travel in the last 8 weeks: None Family Hx:: Unable to obtain Review of Systems - Review of Systems Review of systems:: pertinent systems reviewed and negative unless documented below - *Neurologic Reports weakness Meds Home Medications Medication Instructions Recorded Confirmed Type Aspirin [Aspirin 81mg EC Tab] 81 mg PO DAILY 09/20/18 06/30/21 History Atorvastatin Calcium [Lipitor 80mg 80 mg PO DAILY 09/20/18 06/30/21 History Tab] Felodipine [Felodipine ER] 10 mg PO DAILY 09/20/18 06/30/21 History Levothyroxine Sodium 200 mcg PO DAILY 09/20/18 1
[2021-07-01 12:00] VITALS: PULSE 76
[2021-07-01 12:34] LABS: POC Glucose,Bedside 84 (70-110)
[2021-07-01 12:34] LABS: POC Glucose,Bedside 88 (70-110)
[2021-07-01 16:00] VITALS: BP 96/51; PULSE 74; RESP 22; TEMP 36.6; O2SAT 95
[2021-07-01 17:32] LABS: POC Glucose,Bedside 88 (70-110)
--- NOTE | 2021-07-01 18:48 | PC.NURSE ---
Unable to upload photos to pt's chart on computer, see med surg camera for reference
[2021-07-01 18:59] VITALS: BMI 28.3
[2021-07-01 20:00] VITALS: BP 163/84; PULSE 75; PULSE 80; RESP 18; TEMP 37.4; O2SAT 99
[2021-07-01 23:25] LABS: POC Glucose,Bedside 93 (70-110)
--- NOTE | 2021-07-02 03:23 | PC.NURSE ---
No acute changes t/o shift. Pt was q2h turn, placed a dressing to right hip, ulcer present that opened up and pt was c/o of some pain in that area. Dressing already applied to groin area previous shift is C/D/I. Pt has mars draining light steven, orange urine. VSS, call light within reach, will continue to monitor.
[2021-07-02 04:00] VITALS: PULSE 55
[2021-07-02 05:31] VITALS: BP 113/42; PULSE 57; RESP 18; TEMP 36.4; O2SAT 98
[2021-07-02 06:02] LABS: POC Glucose,Bedside 88 (70-110)
--- NOTE | 2021-07-02 07:51 | CA_ITS ---
APPROVED REPORT EXAM: Comprehensive 2D, Doppler, and color-flow Echocardiogram Equipment Scheduler: Mickie Cordon CRT Ht: 5 ft 3 in Wt: 160lbs BSA: 1.76 BP: 133/65 mmHg Indications: Diabetes, Hyperlipidemia, Hypertension/HDD, old GA, smoker, old GA 2D Dimensions LVOT 1.94 cm (M/F) 1.5-2.5 LA Volume 18.60 mL LA Volume Index 10.60 mL/m2 (M/F) 16-34 M-Mode Dimensions RVDd 2.09 cm (0.9-2.6) LA Diam 3.41 cm (1.9-4.0) LVDd 3.96 cm (3.5-5.7) Ao Diam 3.37 cm (2.0-3.7) LVDs 2.47 cm (3.5-5.7) IVSd 1.48 cm (0.6-1.1) PWd 1.09 cm (0.6-1.1) EF (Teich) 68.20% FS 37.60% EDV (Teich) 68.30 mL TAPSE 1.69 (<1.7) ESV (Teich) 21.70 mL LV Diastology E Decel Time 223.00 (160-240 msec) E/A Ratio 0.92 MED E' 7.80 (< 7 cm/sec) MED A' 10.70 cm/s E'/MED E' Ratio 11.40 (>14) LAT E' 7.10 (<10 cm/sec) LAT A' 7.40 cm/s E/LAT E' Ratio 12.52 (>14) Aortic Valve AI PHT 653.00 ms AO Peak GR. 8.50 mmHg Mitral Valve MV A Velocity 97.00 (40-130 cm/s) E/A Ratio 0.92 MV Decel. Time 223.00 (160-240 ms) Pulmonary Valve PV Peak Velocity 75.00 (50-150 cm/s) Tricuspid Valve TR P. Velocity 173.00 cm/s RAP Estimate 10.00 mmHg RVSP 21.90 mmHg Left Ventricle Technically difficult study because of the patient factors and poor acoustic windows. Endocardial surfaces are very poorly visualized. Left atrium is mildly enlarged, left ventricle is normal size, mild concentric left ventricular hypertrophy, visually estimated ejection fraction 55% with no obvious regional wall motion abnormality, grade 1 diastolic dysfunction seen without tissue Doppler evidence of raise left atrial pressure. Right Ventricle Right atrium and right ventricle mildly enlarged with normal contractility. Aortic Valve Aortic valve is minimally thickened and calcified without aortic stenosis, there is mild aortic insufficiency. Mitral Valve Mitral valve grossly normal, there is mild mitral regurgitation. Tricuspid Valve Tricuspid valve grossly normal, there is mild tricuspid regurgitation, tricuspid regurgitation jet velocity is inadequate for calculation of the right ventricular systolic pressure. Pulmonic Valve Pulmonic valve is poorly visualized. Great Vessels Aortic root is normal size. Pericardium No significant pericardial effusion noted. Conclusion 1. Mildly enlarged left atrium, normal left ventricular size, mild concentric left ventricular hypertrophy, visually estimated ejection fraction 55% with no obvious regional wall motion abnormality, endocardial surface a very poorly visualized, if clinically indicated repeat study with Definity contrast is recommended. 2. Mild aortic, mild mitral and tricuspid regurgitation. 3. No significant pericardial effusion noted. 4. Inferior vena cava is normal size with normal inspiratory collapse. Electronically signed by : Haider Davis MD 07/02/2021 18:57:01
[2021-07-02 08:00] VITALS: BP 123/56; PULSE 60; RESP 18; TEMP 37; O2SAT 94
--- NOTE | 2021-07-02 08:00 | HMH.CNCARD ---
History of Present Illness Consult date: 07/02/21 Requesting physician: Preet Vazquez Chief complaint: weakness, wt loss Additional Medical History:: 1. Tobacco use, continued use A. Emphysema 2. Hypertension 3. History of left nephrectomy 4. Right Renal artery stenosis status post stenting, 10/2020 5. Diabetes mellitus, insulin requiring A. Left cwzma-sop-uhmv amputation 6. Coronary artery disease A. Non-ST elevation PA, 10/2020 B. Ostial LAD stent with remaining distal circumflex disease relegated to medical therapy. (Cath report noted below) C. DAPT therapy discontinued for just ASA in the interim from 11/2020 until admission, 06/2021, for unknown reason. 7. Hyperlipidemia 8. Anxiety/depression [facility], 10/2020 ANGIOGRAPHIC RESULTS The left main artery Normal The left anterior descending artery Has an ostial proximal 70 to 80% stenosis with remaining vessel having mild 10% stenosis The circumflex artery Is a large dominant vessel giving rise to a large trifurcating first obtuse marginal artery which has an ostial proximal 30 to 40% stenosis. The mid circumflex artery then has additional 30 to 40% stenoses. The terminal obtuse marginal artery has a proximal 90% concentric stenosis and then supplies two 1.5 mm obtuse marginal arteries. The right coronary artery Nondominant with proximal 30% stenosis mid vessel tandem 60% stenoses both in areas of 2 mm diameter vessels. The DOBBS ventriculogram reveals Hyperdynamic 70% The left ventricular end-diastolic pressure 20 mmHg The right renal artery singular and has an ostial 80% stenosis The left renal artery is noted to be occluded from previous nephrectomy IMPRESSION Severe to critical ostial proximal LAD disease as described above Successful stenting of the ostial proximal LAD severe disease reduced to 0% with 1 drug-eluting stent Persistent severe stenosis in the distal circumflex artery as described above Hyperdynamic ventricle system with hypertensive heart disease Elevated LVEDP consistent with hypertensive heart disease Severe right renal artery stenosis Successful stenting of the ostial proximal right renal artery severe disease reduced to 0% with 1 drug-eluting stent PLAN 1. Brilinta and aspirin 2. Beta-blockers ELIEL inhibitors 3. Control of hypertension 4. At this point I favor treating the distal circumflex artery medically. After patient is maximally medically managed and her blood pressure is better controlled should she continue to experience angina pectoris I could consider stenting this vessel although because of the bifurcating nature I believe medical management would be most warranted at this time 5. LDL less than 55 6. Cardiac rehabilitation 7. Avoidance of tobacco products Electronically signed by : Natanlizeth Alas, 11/22/2020 13:10:33 History of present illness: Brought in by ambulance. States that she is dehydrated and depressed. Says she has not eaten anything in 2 weeks, has no appetite. She says she has been drinking ice water. She complains also of having some bedsores on her lower abdomen, groin, and buttocks. She says these have been present for about 2 weeks. She says that she puts the chucks underneath herself but has no control of her urine and lays in urine. She has a prior left mctiz-xha-jynp amputation. She says her is in his 70s and cannot care for her. She saw her primary care provider yesterday and states that she beg her to put her in the hospital but she says her primary care provider told her that she could not help her. She says that she was there to have a potassium level rechecked and her potassium was a little low. Her primary care provider is in [place]. Above note per emergency department. Patient is an ex patient of my practice who has a long history of depression, multiple comorbid conditions mostly related to inveterate, heavy and long-term cigarette use, with vascular disease, cardio
--- NOTE | 2021-07-02 08:15 | ECG_ITS ---
APPROVED REPORT Exam: Resting ECG HR:60 bpm ECG Measurements Heart Rate 60 AXES ND 114 P 52 QRSd 82 QRS 87 QT 564 T 90 QTc 564 Conclusion Normal sinus rhythm Nonspecific T wave abnormality Prolonged QT Abnormal ECG Electronically signed by : Preet Vazquez MD 07/03/2021 10:55:07
--- NOTE | 2021-07-02 08:18 | HMH.ACPN2 ---
Internal Medicine - PN: Subj *Date: 07/02/21 *Time: 08:18 Interval history: Patient is slightly more talkative than yesterday. Notes that she ate some food yesterday evening. Please see nurses notes regarding her wound care issues. Cardiology consult reviewed and appreciated. Exam Vital signs and Labs for Last 24 Hours: Temp Pulse Resp BP Pulse Ox 97.6 F 57 L 18 113/42 L 98 07/02/21 05:31 07/02/21 05:31 07/02/21 05:31 07/02/21 05:31 07/02/21 05:31 Laboratory Results - last 24 hr 07/01/21 06:15: POC Glucose 84 07/01/21 12:27: POC Glucose 88 07/01/21 17:25: POC Glucose 88 07/01/21 20:17: POC Glucose 93 07/02/21 05:33: POC Glucose 88 I & O for Last 24 hours: Intake & Output 06/29/21 06/30/21 07/01/21 07/02/21 11:59 11:59 11:59 11:59 Intake Total 120 / 120 1197 / 1197 Output Total 50 / 50 25 / 25 Balance 70 / 70 1172 / 1172 Weight 156 lb 160 lb 160 lb 0.008 oz Microbiology Reports for the Last 24 Hours: Microbiology 07/01/21 17:32 Urine,Catheterized Urine Culture - Preliminary Narrative: - *Routine HEENT Exam Head: Present: normocephalic Eye: Present: EOMI, PERRL ENT: Present: mucous membranes dry - *Routine Neck Exam Present: supple. Absent: lymphadenopathy - *Routine Respiratory Exam Present: rhonchi, wheezes - *Routine Cardiovascular Exam Present: RRR - *Routine Abdominal Exam Present: soft, normoactive bowel sounds. Absent: tenderness - *Routine Rectal Exam Rectal:: deferred - *Routine Genitalia Exam Genitalia:: normal female Comment:: External wounds around labia, catheter in good position draining clear yellow urine. - *Routine Extremities Exam Absent: cyanosis, clubbing, edema - *Routine Skin Exam Present: warm, wounds. Absent: rash Comments: See nursing pictorial directory for wound evaluation. Multiple small, skin lesions and abrasions throughout back, buttocks, around labia, and her remaining lower extremity consistent with poor nutrition and skin stasis. Multiple scattered bruises with no evidence of petechiae. Joints appear to be clear of bleeding. Skin is dark, evidence of no bathing for the past 2 to 3 weeks, no cyanosis. Assessment and Plan (1) Anorexia Status: Acute Category: Medical Code(s): R63.0 - Anorexia (2) Decubitus ulcers Status: Acute Qualifiers: Pressure injury location: unspecified location Pressure injury stage: stage 3 Qualified Code(s): L89.93 - Pressure ulcer of unspecified site, stage 3 Category: Medical Code(s): L89.90 - Pressure ulcer of unspecified site, unspecified stage (3) Depression Status: Acute Qualifiers: Depression Type: unspecified Qualified Code(s): F32.A - Depression, unspecified Category: Medical Code(s): F32.A - Depression, unspecified (4) Elevated troponin Status: Acute Category: Medical Code(s): R77.8 - Other specified abnormalities of plasma proteins (5) Anemia Status: Acute Qualifiers: Anemia type: due to chronic kidney disease Chronic kidney disease stage: unspecified stage Qualified Code(s): N18.9 - Chronic kidney disease, unspecified; D63.1 - Anemia in chronic kidney disease Category: Medical Code(s): D64.9 - Anemia, unspecified - Assessment and plan all Dx Assessment and Plan for all problems:: Patient is stable. Slightly more talkative today. Continues to express her wish to go to long-term care. PT and OT evaluation today. Continue to respect DNR status. I think patient will be a long-term care placement issue. Care management is evaluating possibility for transfer.
--- NOTE | 2021-07-02 08:55 | SW/DCPLANNER ---
Addendum entered by Kassie Kelsey 07/02/21 14:46: I have informed patients (Lee [phone]) that patient will discharge today. Lee has agreed to complete paperwork at [facility] for this patient. Addendum entered by Kassie Kelsey 07/02/21 14:17: [facility] is willing to accept this patient. Cami has stated that she can accept this patient today. Patient did have Moderna vaccine. Per Cami patient does not need an additional COVID swab. Dr Vazquez will discharge this patient. Original Note: I spoke with this patient this AM regarding discharge plans. Patient is interested in placement at discharge and does not have a preference as to which facility. Patient is interested in retirement placement. Patient information will be faxed to [facility] once PT/OT evaluation is completed.
[2021-07-02 09:48] LABS: Basophils % 0.5 % (0.1-2.0); Eosinophils % 0.6 % (0.1-12.0); Hematocrit 29.1 % (37.0-47.0); Hemoglobin 9.2 g/dL (12.2-16.2); Lymphocytes # 1.7 K/mm3 (0.7-4.5); Lymphocytes % 27.3 % (10-50); Mean Corpuscular HGB Conc 31.5 g/dL (31.8-35.4); Mean Platelet Volume 8.3 fl (7.4-10.4); Monocytes # 0.3 K/mm3 (0.1-1.0); Monocytes % 5.7 % (1.7-9.3); Neutrophils % 65.8 % (37.0-80.0); Platelet Count 447 K/mm3 (142-424); Red Blood Count 3.17 M/mm3 (4.20-5.40); Red Cell Distribution Width 18.7 % (11.5-17.5)
[2021-07-02 09:55] LABS: Chloride 107 mmol/L (98-107); Potassium 3.9 mmoL/L (3.5-5.1); Sodium 135 mmol/L (136-145)
[2021-07-02 09:58] LABS: Anion Gap 9.9 mEq/L (5-15); Blood Urea Nitrogen 10 mg/dl (7-17); Carbon Dioxide 22 mmol/L (22.0-30.0); Creatinine Clearance Estimated 62 mL/min (50-200); Estimated Glomerular Filt Rate 83 ml/min (>60); GFR (African American) 101 ML/MIN (>60)
[2021-07-02 09:59] LABS: Calcium 7.8 mg/dl (8.4-10.2); Glucose 78 mg/dl (74-100)
--- NOTE | 2021-07-02 10:20 | HMH.OTEV ---
OT Inpatient Evaluation Rehab OT IP Evaluation Start: 07/01/21 07:53 Freq: ONCE Status: Complete Protocol: Document 07/02/21 10:10 SUJIT (Rec: 07/02/21 10:19 SUJIT [id number]) Rehab OT IP Assessment Subjective History 66 year old female brought in by ambulance. States that she is dehydrated and depressed. Says she has not eaten anything in 2 weeks, has no appetite. She says she has been drinking ice water. She complains also of having some bedsores on her lower abdomen, groin, and buttocks. She says these have been present for about 2 weeks. She says that she puts the chucks underneath herself but has no control of her urine and lays in urine. She has a prior left [id number]-msh-jiqf amputation . She says her is in his 70s and cannot care for her. She saw her primary care provider yesterday and states that she beg her to put her in the hospital but she says her primary care provider told her that she could not help her. She says that she was there to have a potassium level rechecked and her potassium was a little low. Her primary care provider is in [place]. Above note per emergency department. Patient is an ex patient of my practice who has a long history of depression, multiple comorbid conditions mostly related to inveterate, heavy and long-term cigarette use, with vascular disease, cardiovascular disease, chronic wounds, history of osteomyelitis and gangrene of the left lower extremity that required left above-knee amputation. She is wheelchair
--- NOTE | 2021-07-02 10:58 | HMH.PTEV ---
Physical Therapy Evaluation Rehab PT IP Evaluation Start: 07/01/21 07:53 Freq: ONCE Status: Active Protocol: Document 07/02/21 10:00 TANIA (Rec: 07/02/21 10:58 [id number]) Subjective/History History History This is the initial evaluation for Cecilia Miranda. Pt is a 66 y/o female who presents with complaints of multiple sores on her body. Pt is a L AKA. - Note done by Yesy Ortiz , SPT Subjective Subjective Pt reports she is in pain from sores on her body. Pt reports she is depressed and frustrated with care. Pt reports she liked sitting on edge of bed. PT stated she did not want to stand up from bed . Rehab PT IP Eval Objective Appearance Patient Behavior Appropriate,Anxious,Crying, Fatigued,Fearful Patient Orientation Person,Place,Time,Name, Birthday,Year Difficulty following instructions none Speech Pattern Clear,Appropriate,Coherent, Soft-Spoken,Monotone,Mumbled Ambulation Patient Able to Ambulate No Balance Ability to Arise Unable Sitting Balance Steady, safe Dynamic Sitting Balance Ability Good Transfers Bed Transfer Ability Minimal x 1 (25% assist) Rehab PT IP prob,goals,plan Problems Date of Evaluation: 07/02/21 PT IP Problems Bed Mobility,Transfers,Gait, Balance,Self care,Safety Rehab Potential Rehab Potential Poor Equipment Needs Assistive Devices Wheelchair Plan PT Intervention Plan Bed Mobility,Transfers,Gait, Balance,Self care,Safety, Therapeutic Exercise PT Plan Frequency BID Duration LOS Discharge Goals Bed Transfer Ability Contact Guard/Hand Hold Discharge Plan PT Discharge Plan Once pt is medically stable, she would benefit from home health nursing and physical therapy. If pt's spouse is unable to provide support, assisted living or terminal gauger supervisor care will be an appropraite option. Without assistance, pt
--- NOTE | 2021-07-02 11:02 | PC.NURSE ---
abdominal folds and marcel area marcel area marcel area inside of thigh and marcel area left hip left buttock right foot
[2021-07-02 12:00] VITALS: PULSE 70
--- NOTE | 2021-07-02 12:49 | DIET.NUTRFU ---
Nutritional assessment, IP/consult completed. Pt with severe malnutrition rt anorexia rt depression with loss 32% BW and minimal intakes past 2m. Diet edu/counseling provided for malnutrition with depression induced anorexia and for wound healing. BID glucerna added to order. Will monitor to alter as indicated. Of note pt highly mentally unstable/depressed about her health state, behavioral health consult may be beneficial.
--- NOTE | 2021-07-02 12:52 | DIET.NUTRFU ---
Nutritional assessment, IP/consult completed. Pt with severe malnutrition rt anorexia rt depression with loss 32% BW and minimal intakes past 2m. Diet edu/counseling provided for malnutrition with depression induced anorexia and for wound healing. TID glucerna and protein fortified foods on diet order. Pt encouraged to practice mindful eating and positive mindset during meals. Will monitor to alter as indicated. Of note pt highly mentally unstable/depressed about her health state, behavioral health consult may be beneficial.
--- NOTE | 2021-07-02 14:29 | HMH.DCSUM ---
General - General Admission date:: 06/30/21 Discharge date: 07/02/21 HPI HPI: Brought in by ambulance. States that she is dehydrated and depressed. Says she has not eaten anything in 2 weeks, has no appetite. She says she has been drinking ice water. She complains also of having some bedsores on her lower abdomen, groin, and buttocks. She says these have been present for about 2 weeks. She says that she puts the chucks underneath herself but has no control of her urine and lays in urine. She has a prior left [id number]-yzq-[id number] amputation. She says her is in his 70s and cannot care for her. She saw her primary care provider yesterday and states that she beg her to put her in the hospital but she says her primary care provider told her that she could not help her. She says that she was there to have a potassium level rechecked and her potassium was a little low. Her primary care provider is in [place]. Above note per emergency department. Patient is an ex patient of my practice who has a long history of depression, multiple comorbid conditions mostly related to inveterate, heavy and long-term cigarette use, with vascular disease, cardiovascular disease, chronic wounds, history of osteomyelitis and gangrene of the left lower extremity that required left above-knee amputation. She is wheelchair-bound. She has emphysema and continues to smoke heavily. She has a long history of recurrent depression and has been admitted frequently to hospital for supportive care, dehydration and multiple etiologies. She arrived at the ER with a history as above. Have not seen her for several months as she is transferred care to [place] given her displeasure with my declining to admit her to the hospital for her frequent nausea exacerbations. She, on work-up in the ER, was found to have mildly elevated troponins, the electrolyte abnormalities noted above, weight loss from previous exams, significant wound issues and evidence of significant malnutrition. When I discussed with her her case this morning she states 3 weeks ago I just went down. She really does not explain an event that caused this, just notes that she stopped eating. She denies diarrhea or significant vomiting. Reports that her pain is been fairly well controlled. Denies any kind of new medication, medication cessation or other things that might of tipped her over into the state. Hospital Course Hospital Course: Patient was admitted to hospital. Nursing reviewed her wounds, wound care consult was also given and recommendations were noted. PT evaluated her and felt that she would benefit from long-term care/skilled care for ongoing PT, wound care and therapy. Patient's troponin levels were slightly elevated but remained stable throughout her hospital stay. Echocardiogram showed good function. Cardiology evaluated her and felt that this was not related to acute coronary disease. They recommended no intervention and continuing current therapy. Patient as noted on admission requested long-term care transfer because I cannot take care of myself at home any longer. A bed was found for her at the [facility] and she will be transferred there today with her home medications, PT/OT consultation, wound care consultation and nutrition consultation. Objective Vital signs: Temp Pulse Resp BP Pulse Ox 98.6 F 60 18 123/56 L 94 L 07/02/21 08:00 07/02/21 08:00 07/02/21 08:00 07/02/21 08:00 07/02/21 08:00 no acute distress, cachectic, chronically ill appearing Comments: Scattered bruising and wounds on skin as documented in nursing pictorial chart - *Routine HEENT Exam Head: Present: normocephalic Eye: Present: EOMI, PERRL ENT: Present: mucous membranes moist - *Routine Neck Exam Present: supple - *Routine Respiratory Exam Present: CTA bilaterally - *Routine Cardiovascular Exam Present: RRR - *Routine Abdominal Exam Present
[2021-07-02 19:57] LABS: POC Glucose,Bedside 83 (70-110)
== END 2021-07-02 16:15 ==
LOC: ER 11:59 → 2ND 12:16
PROVIDERS: Admitting Provider Internal Medicine Adolescent Medicine; Emergency Provider Emergency Medicine; PCP Family Medicine; Visit Provider Internal Medicine Adolescent Medicine
DX: E86.0 Dehydration (principal); I25.10 Atherosclerotic heart disease of native coronary artery without angina pectoris; Z95.1 Presence of aortocoronary bypass graft; E11.9 Type 2 diabetes mellitus without complications; R63.0 Anorexia; L89.93 Pressure ulcer of unspecified site, stage 3; F32.A Depression, unspecified; N17.9 Acute kidney failure, unspecified; N18.9 Chronic kidney disease, unspecified; D63.1 Anemia in chronic kidney disease; Z88.8 Allergy status to other drugs, medicaments and biological substances; Z79.899 Other long term (current) drug therapy; Z79.01 Long term (current) use of anticoagulants; F17.210 Nicotine dependence, cigarettes, uncomplicated; I70.1 Atherosclerosis of renal artery; I48.91 Unspecified atrial fibrillation; Z99.3 Dependence on wheelchair; Z79.84 Long term (current) use of oral hypoglycemic drugs; I12.9 Hypertensive chronic kidney disease with stage 1 through stage 4 chronic kidney disease, or unspecified chronic kidney disease; Z20.822 Contact with and (suspected) exposure to COVID-19; E03.9 Hypothyroidism, unspecified
CPT/HCPCS: G0378; 36415; 71045; 80048; 80053; 81001; 82962; 84439; 84443; 84484; 85025; 87086; 87186; 93005; 93306; 96365; 97110; 97163; 97165; 99285; C9803; U0003; U0005

== ENCOUNTER 2021-07-07 13:16 | Inpatient (IN) | payer MEDICARE, MEDICAID, SELFPAY ==
[2021-07-07] VITALS (10 sets, daily range): BP systolic 89–150; BP diastolic 46–99; PULSE 50–88; RESP 13–18; TEMP 35.9–36.4; O2SAT 96–99; BMI 40.4; BMI 26.8; BMI 31.6
--- NOTE | 2021-07-07 13:33 | ECG_ITS ---
APPROVED REPORT Exam: Resting ECG HR:53 bpm ECG Measurements Heart Rate 53 AXES VT 104 P -2 QRSd 86 QRS 68 QT 454 T 194 QTc 426 Conclusion Sinus bradycardia with short VT Nonspecific ST and T wave abnormality Abnormal ECG Electronically signed by : Preet Vazquez MD 07/09/2021 21:24:25
--- NOTE | 2021-07-07 13:36 | HMH.EDGENADL ---
ED Disposition Clinical Impression: Syncope and collapse, Somnolence, Occult blood positive stool Anemia Qualifiers: Anemia type: unspecified type Qualified Code(s): D64.9 - Anemia, unspecified Disposition: Admitted as Observation Condition on Discharge: Fair - Critical Care Critical Care Time: No Attestation: On 07/07/21, the high probability of a clinically significant, sudden or life threatening deterioration of the following system(s) required my full and direct attention, intervention and personal management. The time I documented below is in addition to time spent performing reported procedures but includes the following listed in this critical care notation. Medical Decision Making - Medical Records Medical records reviewed: Yes: I reviewed the patient's medical records. MR Comment: I reviewed the emergency department record from 06/30/2021, seen by me. Reviewed discharge summary from that admission, admitted 06/30/2021 and discharged 07/02/2021 to extended-care facility, [facility]. Hemoglobin was 11 on admission 06/30/2021. - Heath Inquiry Pt receiving controlled substance: No Vital Signs: 07/07/21 13:33 07/07/21 16:03 07/07/21 16:33 Temperature 96.7 F L Temperature Source Rectal Pulse Rate 88 62 Pulse Rate [Right Radial] 57 L Respiratory Rate 17 15 13 Blood Pressure 91/72 L 96/56 L Blood Pressure [Right Arm] 150/99 H Blood Pressure Mean 78 65 Blood Pressure Mean [Right Arm] 116 Blood Pressure Source [Right Arm] Manual Cuff/ Auscultation Blood Pressure Position [Right Arm] Supine 02 Sat by Pulse Oximetry 99 97 96 Oxygen Delivery Method Room Air 07/07/21 17:01 Temperature Temperature Source Pulse Rate 63 Pulse Rate [Right Radial] Respiratory Rate 13 Blood Pressure 142/116 H Blood Pressure [Right Arm] Blood Pressure Mean 122 Blood Pressure Mean [Right Arm] Blood Pressure Source [Right Arm] Blood Pressure Position [Right Arm] 02 Sat by Pulse Oximetry 97 Oxygen Delivery Method - Lab Data Lab Results 07/07/21 13:35: Urine Color Yellow, Urine Appearance Clear, Urine pH 6.0, Ur Specific Burke 1.025, Urine Protein Trace, Urine Glucose (UA) Negative, Urine Ketones Negative, Urine Blood Negative, Urine Nitrate Negative, Urine Bilirubin 2+ A, Urine Urobilinogen 0.2, Ur Leukocyte Esterase Negative, Urine RBC 3-5, Urine WBC 3-5 10/09/21 13:35: Stool Occult Blood Positive A 07/07/21 13:46: Specimen Source L brachial, O2 % Room air, ABG pH 7.48 H, ABG pCO2 20.5 L, ABG pO2 69.0 L, ABG HCO3 14.9 L, ABG Total CO2 15.5 L, ABG O2 Saturation 94, ABG Base Excess -8.7 L 07/07/21 15:02: WBC 8.5, RBC 2.96 L, Hgb 8.4 L, Hct 26.6 L, MCV 89.9, MCH 28.4, MCHC 31.6 L, RDW 19.4 H, Plt Count 422, MPV 8.4, Neut % (Auto) 82.1 H, Lymph % (Auto) 15.3, [place] % (Auto) 2.3, Eos % (Auto) 0.2, Baso % (Auto) 0.1, Neut # (Auto) 6.9, Lymph # (Auto) 1.3, [place] # (Auto) 0.2, Eos # (Auto) 0.0, Baso # (Auto) 0.0 07/07/21 15:02: Sodium 135 L, Potassium 3.4 L, Chloride 111 H, Carbon Dioxide 15 L, Anion Gap 12.4, BUN 16, Creatinine 1.20 H, Estimated Creat Clear 67, Estimated GFR 45 L, Est GFR ( Amer) 54 L, Glucose 101 H, Calcium 8.3 L, Total Bilirubin 0.6, AST 64 H, ALT 19, Alkaline Phosphatase 116, Troponin I 0.11 H, Total Protein 4.8 L, Albumin 2.2 L, Globulin 2.6, Albumin/Globulin Ratio 0.8 L 07/07/21 15:02: Lactate 3.5 H 07/07/21 15:02: Ammonia < 9 L Result diagrams: 07/07/21 15:02 07/07/21 15:02 Orders (Tests/Meds): ED MEDICATIONS Generic Name Dose Route Start Last Admin Trade Name Freq PRN Reason Stop Dose Admin Acetaminophen 650 mg 07/07/21 17:39 Acetaminophen 325mg Tab PO 08/06/21 17:38 Q4HP PRN Fever or Mild Pain Citalopram Hydrobromide 40 mg 07/08/21 09:00 Citalopram 40mg Tablet PO 08/07/21 08:59 DAILY ARMINDA Fluconazole 100 mg 07/08/21 09:00 Fluconazole 100mg Tablet PO DAILY ARMINDA Insulin Human Lispro 0 unit 07/07/21 21:00 Humalog
--- NOTE | 2021-07-07 13:44 | CT_ITS ---
PROCEDURE INFORMATION: Exam: CT Head Without Contrast Exam date and time: 07/07/2021 1:44 PM Age: 66 years old Clinical indication: Altered mental status/memory loss; Additional info: AMS TECHNIQUE: Imaging protocol: Computed tomography of the head without contrast. 3D rendering (Not supervised by radiologist): MIP and/or 3D reconstructed images were created by the technologist. Radiation optimization: All CT scans at this facility use at least one of these dose optimization techniques: automated exposure control; mA and/or kV adjustment per patient size (includes targeted exams where dose is matched to clinical indication); or iterative reconstruction. COMPARISON: No relevant prior studies available. FINDINGS: Brain: The brain demonstrates diffuse volume loss. There is white matter hypodensity most consistent with chronic small vessel ischemic change. No visible evolving territorial infarct. No hemorrhage. Cerebral ventricles: The ventricles are enlarged in keeping with volume loss. Paranasal sinuses: Retention cyst or polyp in the left maxillary sinus. Mastoid air cells: Visualized mastoid air cells are well aerated. Bones/joints: Unremarkable. No acute fracture. Soft tissues: Unremarkable. Other findings: There is a CSF expanded empty sella turcica, usually an incidental finding. IMPRESSION: No acute intracranial abnormality seen.
--- NOTE | 2021-07-07 13:46 | XR_ITS ---
PROCEDURE INFORMATION: Exam: XR Chest Exam date and time: 07/07/2021 1:46 PM Age: 66 years old Clinical indication: Other: AMS TECHNIQUE: Imaging protocol: XR of the chest. Views: 1 view. COMPARISON: CR XR CHEST PORTABLE 06/30/2021 11:01 AM FINDINGS: Lungs: Calcified granulomata in the lungs. No lobar consolidations. Pleural spaces: Unremarkable. No pleural effusion. No pneumothorax. Heart/Mediastinum: Unremarkable. No cardiomegaly. Bones/joints: Unremarkable. Intraperitoneal space: There are surgical clips in the left upper quadrant of the abdomen. IMPRESSION: No evidence of acute cardiopulmonary disease.
--- NOTE | 2021-07-07 13:48 | PC.NURSE ---
respiratory notified of abg order
[2021-07-07 13:50] LABS: Microscopic, Urine URINE MICROSCOPIC (MICROSCOPIC)
--- NOTE | 2021-07-07 13:51 | PC.NURSE ---
pt to ct
[2021-07-07 13:55] LABS: Appearance,Urine CLEAR (Clear); Blood, Urine Negative (Negative); Color,Urine YELLOW (Yellow); Glucose,Urine (UA) Negative (Negative); Ketones,Urine Negative (Negative); Leukocyte Esterase,Urine Negative (Negative); Nitrate,Urine Negative (Negative); Protein,Urine TRACE (Negative); Specific Gravity, Urine 1.025 (1.005-1.030); Urobilinogen,Urine 0.2 EU/dl (0.2)
[2021-07-07 13:59] LABS: Bilirubin,Urine 2+ (Negative)
[2021-07-07 14:42] LABS: ABG Base Excess -8.7 mmol/L (-2.4-2.3); ABG HCO3 14.9 mmhg (22.0-26.0); ABG Oxygen Saturation 94 % (90-100); ABG PCO2 20.5 mmhg (35.0-45.0); ABG PH 7.48 mmol/L (7.35-7.45); ABG TCO2 15.5 mmhg (23-27)
[2021-07-07 14:44] LABS: Oxygen ROOM AIR %; Source L BRACHIAL
[2021-07-07 15:19] LABS: Basophils % 0.1 % (0.1-2.0); Eosinophils % 0.2 % (0.1-12.0); Hematocrit 26.6 % (37.0-47.0); Hemoglobin 8.4 g/dL (12.2-16.2); Lymphocytes # 1.3 K/mm3 (0.7-4.5); Lymphocytes % 15.3 % (10-50); Mean Corpuscular HGB Conc 31.6 g/dL (31.8-35.4); Mean Corpuscular Hemoglobin 28.4 pg (27.0-31.2); Mean Corpuscular Volume 89.9 fl (81-99); Mean Platelet Volume 8.4 fl (7.4-10.4); Monocytes # 0.2 K/mm3 (0.1-1.0); Monocytes % 2.3 % (1.7-9.3); Neutrophils # 6.9 K/mm3 (1.8-7.8); Neutrophils % 82.1 % (37.0-80.0); Platelet Count 422 K/mm3 (142-424); Red Blood Count 2.96 M/mm3 (4.20-5.40); Red Cell Distribution Width 19.4 % (11.5-17.5); White Blood Count 8.5 K/mm3 (4.8-10.8)
[2021-07-07 15:24] LABS: Alanine Aminotransferase 19 U/L (12-78); Albumin Level 2.2 g/dl (3.5-5.0); Albumin/Globulin Ratio 0.8 (1.1-1.8); Alkaline Phosphatase 116 U/L (38-126); Anion Gap 12.4 mEq/L (5-15); Aspartate Amino Transferase 64 U/L (14-36); Bilirubin,Total 0.6 mg/dl (0.2-1.3); Blood Urea Nitrogen 16 mg/dl (7-17); Calcium 8.3 mg/dl (8.4-10.2); Carbon Dioxide 15 mmol/L (22.0-30.0); Chloride 111 mmol/L (98-107); Creatinine Clearance Estimated 67 mL/min (50-200); Estimated Glomerular Filt Rate 45 ml/min (>60); GFR (African American) 54 ML/MIN (>60); Globulin 2.6 g/dL (1.3-3.2); Glucose 101 mg/dl (74-100); Potassium 3.4 mmoL/L (3.5-5.1); Sodium 135 mmol/L (136-145); Total Protein,Serum 4.8 g/dl (6.3-8.2)
[2021-07-07 15:25] LABS: Lactic Acid 3.5 mmol/L (0.7-2.1)
[2021-07-07 15:31] LABS: Ammonia < 9 umol/L (9-30)
[2021-07-07 15:35] LABS: Troponin I 0.11 ng/ml (0.00-0.034)
[2021-07-07 15:46] LABS: Occult Blood,Stool Positive (Negative)
--- NOTE | 2021-07-07 16:43 | PC.NURSE ---
Called house for a room.
[2021-07-07 17:00] LABS: Coronavirus 19, PCR Not Detected (NotDetected); Influenza A, PCR Not Detected (NotDetected); Influenza B, PCR Not Detected (NotDetected)
--- NOTE | 2021-07-07 17:48 | PC.NURSE ---
Called report to DELMER degroot on med surg
--- NOTE | 2021-07-07 17:56 | PC.NURSE ---
vital signs delayed due to multiple attempts for blood work and an IV. RN remained at the bedside
--- NOTE | 2021-07-07 18:08 | PC.NURSE ---
pt arrived to floor at this time
[2021-07-07 19:14] LABS: Reflex Lactic Add Lactic Reflex
--- NOTE | 2021-07-07 19:28 | PC.NURSE ---
NEW ADMIT FOR SYNCOPAL EPISODE AT [facility] [place] [facility]. CONTACTED MD LEE REGARDING NO FLUIDS ORDERED AND PT HYPOTENSION UPON ARRIVAL TO FLOOR. 500 ML BOLUS OF NS ORDERED WITH NS @75 ML/HR MAINTENANCE. CONSENT FOR PICTURES WAS OBTAINED VIA TELEPHONE AND VERIFIED WITH Suraj YEUNG RN. SHE IS ALERT TO PERSON AND ANSWERS TO HER NAME. SHE WAS ABLE TO FOLLOW SIMPLE COMMANDS, MO CATH IN PLACE WITH BRIEF IN PLACE. SHE IS INCONTINENT OF BOWEL AND BLADDER. MULTIPLE ULCERS VISUALIZED TO TRUNK AREA. BED ALARM ON. BED IN LOWEST LEVEL FOR SAFETY. LUNG ARE CTA SHE DOES NOT REQUIRE O2 ADMIN.
[2021-07-07 20:08] LABS: Troponin I 0.11 ng/ml (0.00-0.034)
[2021-07-07 20:53] LABS: Lactic Acid Follow Up (RFLX 1) 3.4 mmol/L (0.7-2.1)
[2021-07-07 20:59] LABS: Troponin I 0.11 ng/ml (0.00-0.034)
--- NOTE | 2021-07-07 21:10 | PC.WOUNDNOTE ---
MULTIPLE LACERATIONS PRESENT UNDER ABD AND L BKA. DRESSED, CDI.
[2021-07-07 22:20] LABS: POC Glucose,Bedside 113 (70-110)
[2021-07-07 22:26] LABS: Reflex Lactic (2 hrs) Add Lactic Reflex
[2021-07-08] VITALS (9 sets, daily range): BP systolic 110–140; BP diastolic 65–86; PULSE 50–77; RESP 16–20; TEMP 36.1–36.5; O2SAT 95–98; BMI 31.6
--- NOTE | 2021-07-08 03:12 | PC.NURSE ---
A&OX3. PT IS UNAWARE OF WHERE SHE IS. PT MUMBLES MOSTLY, BUT CAN ANSWER MOST QUESTIONS. TOLERATING RA WELL. PT HAS BEEN ASLEEP IN BED MAJORITY OF SHIFT. L BKA PRESENT. F/C DRAINING DARK YELLOW URINE. PT DOES HAVE MULTIPLE OPEN LACERATIONS FROM THE WASTE DOWN. DRESSED THIS SHIFT, CDI. PICTURES ON CHART. PT DID RECEIVE 500ML BOLUS AT BEGINNING OF SHIFT. PT HAS HAD NO C/O THUS FAR. TOLERATED NEW IV INSERTION. VSS WILL CONTINUE TO MONITOR.
[2021-07-08 05:40] LABS: POC Glucose,Bedside 105 (70-110)
--- NOTE | 2021-07-08 08:40 | P.CONPHA_ITS ---
[facility] Pharm[facility] VTE Monitoring - Patient Demographics Admission date: 07/07/21 Report Date: 07/08/21 Time: 08:40 Allergies/Adverse Reactions: Patient Allergies penicillin G [PENICILLIN G] Allergy (Mild, Verified 11/29/20 14:15) Sulfa (Sulfonamide Antibiotics) [SULFA (SULFONAMIDE ANTIBIOTICS)] Allergy (Mild, Verified 11/29/20 14:15) adhesive tape Adverse Reaction (Mild, Verified 11/29/20 14:15) Height: 1.52 m Weight: 73.227 kg Patient Problems: Current Active Problems Anemia (Acute) Syncope and collapse (Acute) Somnolence (Acute) Occult blood positive stool (Acute) - VTE Risk Labs: VTE Related Lab Results Hgb 8.4 g/dL (12.2-16.2) L 07/07/21 15:02 Hct 26.6 % (37.0-47.0) L 07/07/21 15:02 Plt Count 422 K/mm3 (142-424) 07/07/21 15:02 BUN 16 mg/dl (7-17) 07/07/21 15:02 Creatinine 1.20 mg/dl (0.52-1.04) H 07/07/21 15:02 Estimated Creat Clear 67 mL/min (50-200) 07/07/21 15:02 - Prophylaxis VTE Prophylaxis Ordered?: Yes Types of VTE Prophylaxis: TEDS Knee High Location of Applied Device: Bilateral Lower Extremeties
--- NOTE | 2021-07-08 09:26 | HMH.PHAINT ---
MEDICATION RECONCILIATION COMPLETED ON PATIENT USING MR FROM SNF. -MAC HUTTON, AUGUSTINAD
--- NOTE | 2021-07-08 12:21 | HMH.HP ---
*Admission Date: 07/07/21 *Chief complaint: anemia, syncope and collapse *History of present illness: Patient is a 66-year-old white female, very poor health chronically, she is a resident of [facility], unable to care for herself at home. He was admitted through the emergency room episode of syncope and collapse. Patient had been seen in the ER on 06 30, her hemoglobin on that day was 11. Globin yesterday was 8.4, with Hemoccult positive stools. Lab work is reviewed, her troponin was lightly elevated at 0.11. Her lactate was elevated at 3.4, trending down to 3.0. T the brain showed no acute abnormalities chest x-ray is negative Her EKG showed sinus bradycardia short AR interval. Patient has been seen by cardiology, is status post stent deployment of an ostial LAD lesion. She had a distal circumflex lesion that was decided to be amenable to medical treatment. Is a bifurcating vessel. A longstanding history of vasculopathy. She is status post aorto bifemoral stenting, right renal stenting, ischemic gangrene of the left foot requiring below the knee amputation, and because of nonhealing subsequent revision to an [id number] amputation. She is bedbound and unable to care for herself. Patient has a propensity for profound depression. She has lost several family members. She has been unable to care for herself at home. Her is present in the room during my examination. He relays that she has had a very flat affect for some time now. Patient looks chronically ill. Review of previous imaging studies shows a CAT scan on February 19 of this year showing some diverticular changes. We should consider this as a possible etiology of diet blood loss. Had no hematemesis, coffee-ground emesis grossly melanotic stool. Patient is somnolent and detailed history/ROS is difficult to obtain [facility] History Medical History: Reports:: Congestive Heart Failure, Coronary Artery Disease, Diabetes Mellitus Type 2, Hyperlipidemia, Hypertension, MRSA, Myocardial Infarction, Peripheral Vascular Disease Denies:: Cancer, Diabetes Mellitus Type 1 *Have you ever received a pneumonia vaccine?: Yes *Have you received a flu vaccine this season?: Yes Other Medical History: Reports: Anemia, Cataracts, Sinus Problems, Thyroid Disease Laterality Cases: Right: Other, Bilateral: Tonsillectomy Other Surgeries: Yes: CABG, Cardiac Catheterization, Cholecystectomy, , Thyroidectomy Amputation: Yes (girma L side) Fractures: Yes - *Social History Smoking Status: Current every day smoker Tobacco Type: cigarettes # Packs/Day (cigarettes): 2 Alcohol Intake: never Alcohol Intake Frequency:: other Substance Use Type: denies use *Occupational Status:: retired Housing: house Household Members: spouse *Travel in the last 8 weeks: None Family Hx:: Unable to obtain Review of Systems - Review of Systems Review of systems:: unable to obtain Meds Home Medications Medication Instructions Recorded Confirmed Type Aspirin [Aspirin 81mg EC Tab] 81 mg PO DAILY 09/20/18 07/07/21 History Atorvastatin Calcium [Lipitor 80mg 80 mg PO DAILY 09/20/18 07/07/21 History Tab] Felodipine [Felodipine ER] 10 mg PO DAILY 09/20/18 07/07/21 History Levothyroxine Sodium 200 mcg PO DAILY 09/20/18 07/07/21 History [Levothyroxine 200mcg (0.2mg) Tab] Pioglitazone HCl 30 mg PO DAILY 09/20/18 07/07/21 History oxycodone-acetaminophen 5 mg-325 1 tab PO Q6HP PRN tab 11/29/20 07/08/21 History mg tablet Citalopram Hydrobromide 40 mg PO DAILY 06/30/21 07/07/21 History [Citalopram 40mg Tablet] Fluconazole 100 mg PO DAILY 06/30/21 07/07/21 History Fluticasone/Vilanterol [Breo 1 puff INHALATION DAILY 06/30/21 07/07/21 History Ellipta 100-25 Mcg INH] Linaclotide [Linzess] 145 mg PO DAILY 06/30/21 07/07/21 History Ticagrelor [Brilinta 90mg 90 mg PO BID 06/30/21 07/07/21 History Tablet] carvediloL [Carvedilol 3.125mg Tab] 3.125 mg PO BID 06/30/21 07/07/21 Histo
[2021-07-08 13:12] LABS: POC Glucose,Bedside 101 (70-110)
[2021-07-08 13:36] LABS: VBG Base Excess -10.7 mmol/L (-2.4-2.3); VBG Oxygen Saturation 42.6 % (50-70); VBG PCO2 27.9 mmol/L (35-51); VBG PH 7.35 mmol/L (7.31-7.41); VBG PO2 27.5 mmol/L (28-40); VBG Total CO2 15.8 mmol/L (23-27)
[2021-07-08 18:46] LABS: Basophils % 0.2 % (0.1-2.0); Eosinophils # 0.1 K/mm3 (0.0-0.4); Eosinophils % 0.7 % (0.1-12.0); Hematocrit 26.8 % (37.0-47.0); Hemoglobin 8.8 g/dL (12.2-16.2); Lymphocytes # 1.1 K/mm3 (0.7-4.5); Lymphocytes % 11.1 % (10-50); Mean Corpuscular HGB Conc 32.7 g/dL (31.8-35.4); Mean Corpuscular Volume 88.9 fl (81-99); Mean Platelet Volume 8.7 fl (7.4-10.4); Monocytes # 0.3 K/mm3 (0.1-1.0); Monocytes % 3.1 % (1.7-9.3); Neutrophils # 8.6 K/mm3 (1.8-7.8); Neutrophils % 84.9 % (37.0-80.0); Platelet Count 320 K/mm3 (142-424); Red Blood Count 3.02 M/mm3 (4.20-5.40); Red Cell Distribution Width 19.7 % (11.5-17.5); White Blood Count 10.2 K/mm3 (4.8-10.8)
[2021-07-08 19:01] LABS: Ammonia < 9 umol/L (9-30)
--- NOTE | 2021-07-08 19:34 | PC.NURSE ---
PT HAS BEEN VERY LETHARGIC AND SOMNOLENT THIS SHIFT. DR BARCENAS ORDERED MULTIP LABS BUT PT IS A VERY DIFFICULT STICK. THIS RN AND MULTIPLE STAFF MEMBER FROM LAB WERE UNSUCCESSFUL IN DRAWING ALL LAB WORK. DR BARCENAS WAS MADE AWARE OF THIS DURING ROUNDS. HER VS HAVE BEEN STABLE THIS SHIFT. SHE DOES NOT REQUIRE O2 SUPPORT. SHE DID NOT RECEIVE AM MEDS TODAY AND DR BARCENAS WAS MADE AWARE.
[2021-07-08 19:36] LABS: Thyroid Stimulating Hormone 0.07 uIU/mL (0.465-4.68)
[2021-07-09] VITALS (21 sets, daily range): BP systolic 62–155; BP diastolic 32–115; PULSE 49–117; RESP 14–22; TEMP 34.3–36.8; O2SAT 89–100; BMI 315252.1; BMI 31.6
[2021-07-09 01:23] LABS: POC Glucose,Bedside 111 (70-110)
[2021-07-09 01:27] LABS: POC Glucose,Bedside 107 (70-110)
--- NOTE | 2021-07-09 03:21 | PC.NURSE ---
A&OX3. TOLERATING RA WELL. PT HAS CONTINUED TO BE SOMNOLENT THIS SHIFT. PT WAS BATHED. THIS NURSE RE-DRESSED MULTIPLE LACERATIONS AT ABD LINE AND AROUND TOP OF LEGS. ALSO PLACED DX ON COCCYX. PT C/O PAIN FROM THESE SPOTS X1. GIVEN TYLENOL #3 X1 PER MD MUHAMMAD. HAS BEEN NPO SINCE 0000, TOLERATING WELL. DID CALL AND GOT CONSENT FOR PROCEDURE THIS MORNING. F/C PRESENT DRAINING SMALL AMOUNTS OF DARK YELLOW URINE. PT ASSISTED WITH TURNING IN BED. BED SAFETY APPLIED. VSS WILL CONTINUE TO MONITOR.
[2021-07-09 05:12] LABS: POC Glucose,Bedside 128 (70-110)
--- NOTE | 2021-07-09 06:52 | HMH.GSCON ---
*Admission Date: 07/07/21 *Reason for consult:: Anemia; heme positive stools *History of present illness: This is a 66-year-old female (poor historian) with a complex past medical history including recent admission for depression, dehydration, and elevated troponin. She recently developed what was described as a [facility] at which time she was transferred to the emergency department. Hemoglobin found to be 8.4. Historic baseline hemoglobin is normal; however, she has had recent anemia first noted in January of this year. No definite bright red blood per rectum or melena. She was heme positive. She does have a documented history of diverticulosis noted on CT scan in January of this year. Review of Systems - Review of Systems Review of systems:: unable to obtain [facility] History Medical History: Reports:: Congestive Heart Failure, Coronary Artery Disease, Diabetes Mellitus Type 2, Hyperlipidemia, Hypertension, MRSA, Myocardial Infarction, Peripheral Vascular Disease Denies:: Cancer, Diabetes Mellitus Type 1 *Have you ever received a pneumonia vaccine?: Yes *Have you received a flu vaccine this season?: Yes Other Medical History: Reports: Anemia, Cataracts, Sinus Problems, Thyroid Disease Laterality Cases: Right: Other, Bilateral: Tonsillectomy Other Surgeries: Yes: CABG, Cardiac Catheterization, Cholecystectomy, , Thyroidectomy Amputation: Yes (girma L side) Fractures: Yes - *Social History Smoking Status: Current every day smoker Tobacco Type: cigarettes # Packs/Day (cigarettes): 2 Alcohol Intake: never Alcohol Intake Frequency:: other Substance Use Type: denies use *Occupational Status:: retired Housing: house Household Members: spouse *Travel in the last 8 weeks: None Family Hx:: Unable to obtain [facility] Medications Medication Instructions Recorded Confirmed Type Aspirin [Aspirin 81mg EC Tab] 81 mg PO DAILY 09/20/18 07/07/21 History Atorvastatin Calcium [Lipitor 80mg 80 mg PO DAILY 09/20/18 07/07/21 History Tab] Felodipine [Felodipine ER] 10 mg PO DAILY 09/20/18 07/07/21 History Levothyroxine Sodium 200 mcg PO DAILY 09/20/18 07/07/21 History [Levothyroxine 200mcg (0.2mg) Tab] Pioglitazone HCl 30 mg PO DAILY 09/20/18 07/07/21 History oxycodone-acetaminophen 5 mg-325 1 tab PO Q6HP PRN tab 11/29/20 07/08/21 History mg tablet Citalopram Hydrobromide 40 mg PO DAILY 06/30/21 07/07/21 History [Citalopram 40mg Tablet] Fluconazole 100 mg PO DAILY 06/30/21 07/07/21 History Fluticasone/Vilanterol [Breo 1 puff INHALATION DAILY 06/30/21 07/07/21 History Ellipta 100-25 Mcg INH] Linaclotide [Linzess] 145 mg PO DAILY 06/30/21 07/07/21 History Ticagrelor [Brilinta 90mg 90 mg PO BID 06/30/21 07/07/21 History Tablet] carvediloL [Carvedilol 3.125mg Tab] 3.125 mg PO BID 06/30/21 07/07/21 History lisinopriL [Zestril 40mg Tablet] 40 mg PO DAILY 06/30/21 07/07/21 History diazePAM [diazePAM 5mg Tablet] 5 mg PO BID PRN #60 tab 07/02/21 07/07/21 Rx Gabapentin [Neurontin 100mg 200 mg PO HS 07/07/21 07/07/21 History cap] Gabapentin [Neurontin 600mg 600 mg PO DAILY 07/07/21 07/07/21 History tablet] Acetaminophen [Acetaminophen Extra 500 mg PO Q4HP PRN 07/08/21 07/08/21 History Strength] Lactulose [Lactulose 20gm/30ml 20 gm PO DAILY 07/08/21 07/08/21 History Oral Soln] Allergies Allergy/AdvReac Type Severity Reaction Status Date / Time penicillin G [PENICILLIN G] Allergy Mild Verified 11/29/20 14:15 Sulfa (Sulfonamide Allergy Mild Verified 11/29/20 14:15 Antibiotics) [SULFA (SULFONAMIDE ANTIBIOTICS)] adhesive tape AdvReac Mild Verified 11/29/20 14:15 Exam Vital signs and Labs for Last 24 Hours: Temp Pulse Resp BP Pulse Ox 97.5 F L 117 H 17 141/67 H 100 07/09/21 04:00 07/09/21 04:00 07/09/21 04:00 07/09/21 04:00 07/09/21 04:00 Laboratory Results - last 24 hr 07/08/21 11:51: POC Glucose 101 07/08/21
[2021-07-09 06:58] LABS: Alanine Aminotransferase 25 U/L (12-78); Albumin/Globulin Ratio 0.8 (1.1-1.8); Alkaline Phosphatase 101 U/L (38-126); Anion Gap 14.5 mEq/L (5-15); Aspartate Amino Transferase 132 U/L (14-36); Bilirubin,Total 0.5 mg/dl (0.2-1.3); Calcium 7.4 mg/dl (8.4-10.2); Chloride 118 mmol/L (98-107); Creatinine Clearance Estimated 57 mL/min (50-200); Globulin 2.4 g/dL (1.3-3.2); Glucose 105 mg/dl (74-100); Potassium 3.5 mmoL/L (3.5-5.1); Sodium 139 mmol/L (136-145); Total Protein,Serum 4.4 g/dl (6.3-8.2)
--- NOTE | 2021-07-09 07:53 | P.PN_ITS ---
[facility] Anesthesia Checklist - Patient Identification Patient Identification: Arm Band - Structural Data Admitted From: Inpatient Planned Operative Procedure/s: EGD Consent for Planned Operative Procedure(s) Verified: Yes Verified Documents: Surgical Consent, History and Physical - NPO Status Verified Time NPO: 00:00 - Additional verifications Anesthesia Reactions: No - Airway Assessment C-Spine Mobility Assessed: Yes (mp2) TMJ Mobility Assessed: Yes Dentition: Edentulous - Neurological Assessment Level of Consciousness: Drowsy - Anesthesia Plan Anesthesia Risk discussed: Yes Anesthesia Plan: Verified (pt very drowsy this am. She does open eyes and follow commands/answer questions but falls asleep quickly after.) ASA Class: III Anesthesia Type: MAC [facility] History I have reviewed the patient's past medical history: Yes Medical History: Reports:: Congestive Heart Failure, Coronary Artery Disease, Diabetes Mellitus Type 2, Hyperlipidemia, Hypertension, MRSA, Myocardial Infarction, Peripheral Vascular Disease Denies:: Cancer, Diabetes Mellitus Type 1 *Have you ever received a pneumonia vaccine?: Yes *Have you received a flu vaccine this season?: Yes Other Medical History: Reports: Anemia, Cataracts, Sinus Problems, Thyroid Disease Anesthesia experience/problems:: nac Laterality Cases: Right: Other, Bilateral: Tonsillectomy Other Surgeries: Yes: CABG, Cardiac Catheterization, Cholecystectomy, , Thyroidectomy Amputation: Yes (girma L side) Fractures: Yes - *Social History Smoking Status: Current every day smoker Tobacco Type: cigarettes # Packs/Day (cigarettes): 2 Alcohol Intake: never Alcohol Intake Frequency:: other Substance Use Type: denies use *Occupational Status:: retired Housing: house Household Members: spouse *Travel in the last 8 weeks: None Family Hx:: Unable to obtain
--- NOTE | 2021-07-09 08:22 | CA_ITS ---
APPROVED REPORT EXAM: Comprehensive 2D, Doppler, and color-flow Echocardiogram Spinning Lathe Operator Automatic: Alpa Coulter RDCS Ht: 4 ft 11 in Wt: 161lbs BSA: 1.68 BP: 110/68 mmHg Indications: DEFINITY ONLY Conclusion 1. Limited Definity contrast the study was performed, despite Definity contrast the endocardial borders are poorly visualized. 2. Likely preserved left ventricular systolic function, estimated ejection fraction 55% with no obvious regional wall motion abnormality in the visualized segments. Electronically signed by : Haider Davis MD 07/10/2021 06:13:31
[2021-07-09 09:00] LABS: Carbon Dioxide 10 mmol/L (22.0-30.0)
--- NOTE | 2021-07-09 09:05 | HMH.SCOPE ---
- Procedure: Date: 07/09/21 Patient Date of :: 1955 Procedure Performed:: Esophagogastroduodenoscopy with biopsy Indications:: Gastrointestinal hemorrhage Performing Provider:: Wilman Cosme MD Referring Provider:: Drs. Reilly and Jeremi Sedation:: Monitored anesthesia care Procedure:: After informed consent was obtained the patient was taken to the endoscopy suite. Sedation ensued after the patient was transferred to the left lateral decubitus position. Pulse, blood pressure, and oxygen saturation were monitored throughout the procedure. The endoscope was advanced beyond the duodenal bulb. Retroflexion within the gastric lumen was accomplished. The gastroscope was carefully removed and the patient was transferred to recovery in stable condition. Please see findings and specimens below for detail. Findings:: Multiple distal gastric body/antral ulcerations No sign of active hemorrhage Note: Ulcerations were small to moderate in size. She had approximately 10 ulcerations scattered throughout the distal gastric body and antrum. Specimens:: Multiple biopsies of antral ulcerations Recommendations:: PPI/Carafate ordered Follow-up pathology Complications:: No immediate Estimated blood obtained (mL): 1
--- NOTE | 2021-07-09 09:12 | SW/DCPLANNER ---
Addendum entered by Kassie Kelsey 07/13/21 09:16: Family has requested comfort care only at this time. Addendum entered by Kassie Kelsey 07/12/21 14:54: Patients family is going to come up to patients room this evening to speak about discharge plans: possibly returning to [facility] w/ Hospice. I will follow up with patient/family tomorrow morning regarding discharge plans. Original Note: This patient currently resides at [facility]. I spoke with Cami from [facility] and she has stated that patient is [facility] level of care. I will continue to follow up with Cami until patient is medically stable for discharge.
--- NOTE | 2021-07-09 09:38 | HMH.CNCARD ---
History of Present Illness Consult date: 07/09/21 Requesting physician: Reece Blood Consult reason: known to you Chief complaint: syncope History of present illness: This is a 66-year-old white female who was admitted to the hospital after syncopal episode. The patient is unable to give me any information on what happened just prior to her passing out or that she even passed out. She is not answering any of my questions this morning. The patient does seem to be really agitated today. On review of her medical records, she has had some mental status changes and is very flat now and having issues with depression as well as dementia. The patient appears to be in no acute distress but as mentioned before she is agitated and will not answer any my questions or follow any commands. The patient did have an elevation in her troponin at 0.11 on admission but her troponin has not trended up and has remained the same. The patient has known coronary artery disease with stenting in October of this year. She had persistent disease to her circumflex artery and her right coronary artery but medical management is still preferred at this time per Dr. Alas. [facility] History I have reviewed the patient's past medical history: Yes Medical History: Reports:: Congestive Heart Failure, Coronary Artery Disease, Depression, Diabetes Mellitus Type 2, Hyperlipidemia, Hypertension, MRSA, Myocardial Infarction, Peripheral Vascular Disease Denies:: Cancer, Diabetes Mellitus Type 1 *Have you ever received a pneumonia vaccine?: Yes *Have you received a flu vaccine this season?: Yes Other Medical History: Reports: Anemia, Cataracts, Sinus Problems, Thyroid Disease Anesthesia experience/problems:: nac Laterality Cases: Right: Other, Bilateral: Tonsillectomy Other Surgeries: Yes: CABG, Cardiac Catheterization, Cholecystectomy, , Thyroidectomy Amputation: Yes (girma L side) Fractures: Yes - *Social History Smoking Status: Current every day smoker Tobacco Type: cigarettes # Packs/Day (cigarettes): 2 Alcohol Intake: never Alcohol Intake Frequency:: other Substance Use Type: denies use *Occupational Status:: retired Housing: house Household Members: spouse *Travel in the last 8 weeks: None Family Hx:: Unable to obtain Meds Home Medications Medication Instructions Recorded Confirmed Type Aspirin [Aspirin 81mg EC Tab] 81 mg PO DAILY 09/20/18 07/07/21 History Atorvastatin Calcium [Lipitor 80mg 80 mg PO DAILY 09/20/18 07/07/21 History Tab] Felodipine [Felodipine ER] 10 mg PO DAILY 09/20/18 07/07/21 History Levothyroxine Sodium 200 mcg PO DAILY 09/20/18 07/07/21 History [Levothyroxine 200mcg (0.2mg) Tab] Pioglitazone HCl 30 mg PO DAILY 09/20/18 07/07/21 History oxycodone-acetaminophen 5 mg-325 1 tab PO Q6HP PRN tab 11/29/20 07/08/21 History mg tablet Citalopram Hydrobromide 40 mg PO DAILY 06/30/21 07/07/21 History [Citalopram 40mg Tablet] Fluconazole 100 mg PO DAILY 06/30/21 07/07/21 History Fluticasone/Vilanterol [Breo 1 puff INHALATION DAILY 06/30/21 07/07/21 History Ellipta 100-25 Mcg INH] Linaclotide [Linzess] 145 mg PO DAILY 06/30/21 07/07/21 History Ticagrelor [Brilinta 90mg 90 mg PO BID 06/30/21 07/07/21 History Tablet] carvediloL [Carvedilol 3.125mg Tab] 3.125 mg PO BID 06/30/21 07/07/21 History lisinopriL [Zestril 40mg Tablet] 40 mg PO DAILY 06/30/21 07/07/21 History diazePAM [diazePAM 5mg Tablet] 5 mg PO BID PRN #60 tab 07/02/21 07/07/21 Rx Gabapentin [Neurontin 100mg 200 mg PO HS 07/07/21 07/07/21 History cap] Gabapentin [Neurontin 600mg 600 mg PO DAILY 07/07/21 07/07/21 History tablet] Acetaminophen [Acetaminophen Extra 500 mg PO Q4HP PRN 07/08/21 07/08/21 History Strength] Lactulose [Lactulose 20gm/30ml 20 gm PO DAILY 07/08/21 07/08/21 History Oral Soln] Allergies Allergy/AdvReac Type Severity Reaction Status Date / Time penicillin G [PENICILLIN G] Allergy Mild Verified 11/29/
--- NOTE | 2021-07-09 09:38 | HMH.ACPN2 ---
<Courtney Shields - Last Filed: 07/09/21 09:38> Internal Medicine - PN: Subj *Date: 07/09/21 *Time: 09:38 Exam Vital signs and Labs for Last 24 Hours: Temp Pulse Resp BP Pulse Ox 97.5 F L 117 H 17 141/67 H 100 07/09/21 04:00 07/09/21 04:00 07/09/21 04:00 07/09/21 04:00 07/09/21 04:00 Laboratory Results - last 24 hr 07/08/21 11:51: POC Glucose 101 07/08/21 17:04: POC Glucose 107 07/08/21 18:35: WBC 10.2, RBC 3.02 L, Hgb 8.8 L, Hct 26.8 L, MCV 88.9, MCH 29.0, MCHC 32.7, RDW 19.7 H, Plt Count 320, MPV 8.7, Neut % (Auto) 84.9 H, Lymph % (Auto) 11.1, Sunflower % (Auto) 3.1, Eos % (Auto) 0.7, Baso % (Auto) 0.2, Neut # (Auto) 8.6 H, Lymph # (Auto) 1.1, Sunflower # (Auto) 0.3, Eos # (Auto) 0.1, Baso # (Auto) 0.0 07/08/21 18:35: Ammonia < 9 L 07/08/21 18:35: TSH 0.07 L 07/08/21 19:54: POC Glucose 111 H 07/08/21 : VBG pH 7.35, VBG pCO2 27.9 L, VBG pO2 27.5 L, VBG HCO3 15.0 L, VBG Total CO2 15.8 L, VBG O2 Saturation 42.6 L, VBG Base Excess -10.7 L 07/09/21 05:03: POC Glucose 128 H 07/09/21 05:57: Crossmatch (AHG) See Detail 07/09/21 05:57: Sodium 139, Potassium 3.5, Chloride 118 H, Carbon Dioxide 10 L D, Anion Gap 14.5, Creatinine 1.10 H, Estimated Creat Clear 57, Glucose 105 H, Calcium 7.4 L, Total Bilirubin 0.5, AST 132 H D, ALT 25 D, Alkaline Phosphatase 101, Total Protein 4.4 L, Albumin 2.0 L, Globulin 2.4, Albumin/Globulin Ratio 0.8 L I & O for Last 24 hours: Intake & Output 07/06/21 07/07/21 07/08/21 07/09/21 11:59 11:59 11:59 11:59 Output Total 600 / 600 50 / 50 Balance -600 / -600 -50 / -50 Weight 161 lb 7.006 oz 161 lb 7.006 oz Assessment and Plan (1) Anemia Status: Acute Category: Medical Code(s): D64.9 - Anemia, unspecified (2) Occult blood positive stool Status: Acute Category: Medical Code(s): R19.5 - Other fecal abnormalities (3) Somnolence Status: Acute Category: Medical Code(s): R40.0 - Somnolence (4) Syncope and collapse Status: Acute Category: Medical Code(s): R55 - Syncope and collapse (5) Anorexia Status: Chronic Category: Medical Code(s): R63.0 - Anorexia (6) Depression Status: Chronic Category: Medical Code(s): F32.A - Depression, unspecified (7) Elevated troponin Status: Acute Category: Medical Code(s): R77.8 - Other specified abnormalities of plasma proteins (8) Renal insufficiency Status: Acute Category: Medical Code(s): N28.9 - Disorder of kidney and ureter, unspecified (9) CAD (coronary artery disease) Status: Chronic Category: Medical Code(s): I25.10 - Atherosclerotic heart disease of [place] coronary artery without angina pectoris (10) Diabetes mellitus Status: Chronic Category: Medical Code(s): E11.9 - Type 2 diabetes mellitus without complications (11) HLD (hyperlipidemia) Status: Chronic Category: Medical Code(s): E78.5 - Hyperlipidemia, unspecified (12) Hypertension Status: Chronic Category: Medical Code(s): I10 - Essential (primary) hypertension (13) Renal artery stenosis Status: Chronic Category: Medical Code(s): I70.1 - Atherosclerosis of renal artery (14) Tobacco use Status: Chronic Category: Social Hx Code(s): Z72.0 - Tobacco use <Reece Blood - Last Filed: 07/10/21 13:01> Internal Medicine - PN: Subj *Date: 07/09/21 *Time: 20:00 Interval history: pt with dec loc responds to touch - abn egd - will check labs possible sepsis Exam Vital signs and Labs for Last 24 Hours: Temp Pulse Resp BP Pulse Ox 99.1 F 88 24 117/98 H 98 07/10/21 12:00 07/10/21 12:00 07/10/21 12:00 07/10/21 12:00 07/10/21 12:00 Laboratory Results - last 24 hr 07/09/21 15:40: Blood Type B Positive, Antibody Screen Positive, Crossmatch (AHG) See Detail 07/09/21 15:40: Antibody Identification Anti-E 07/09/21 16:40: POC Glucose 128 H 07/09/21 20:07: POC Glucose 110 07/09/21 23:25: WBC 11.1 H, RBC 2.78 L, Hgb 8.0 L, Hct 25.4 L, MCV 91.4, MCH 28.9, MCHC 31.6 L, RDW
[2021-07-09 10:05] LABS: Blood Urea Nitrogen 19 mg/dl (7-17)
[2021-07-09 11:57] LABS: POC Glucose,Bedside 135 (70-110)
--- NOTE | 2021-07-09 14:16 | P.PCN_ITS ---
[facility] Loop Recorder Date: 07/09/21 Time: 14:16 Procedure Performed:: Implantation of loop recorder Indication:: Syncope Technique:: Patient was brought to the cardiac Senior Cyber Security Analyst. After informed consent obtained, 1% lidocaine with epinephrine was used to anesthetize the site along the left anterior aspect of the chest near the sternal border. Using the preformed scalpel, an incision was made and using the supplied preloaded apparatus, the lo op recorder was placed subcutaneously without difficulty. Following the deployment of the loop recorder interrogation of the device was performed to ensure appropriate voltage was being detected. Once this was verified, Steri- Strips were placed over the incision and the patient was prepped to discharge home. Patient tolerated the procedure well with minimal discomfort. Impression:: Successful implantation of loop recorder Serial Number:: [id number] [id number] Serial #[id number] Plan:: Routine postop care
--- NOTE | 2021-07-09 16:22 | PC.NURSE ---
pt has been lethargic since returning to the floor. PO meds held d/t pt being too drowsy to remain awake and swallow w/o choking. pt has been a q2h turn this shift. NSR and sinus re on tele this shift. No other acute changes or complaints, will continue to monitor.
[2021-07-09 16:52] LABS: POC Glucose,Bedside 128 (70-110)
[2021-07-09 23:36] LABS: Basophils % 0.1 % (0.1-2.0); Eosinophils # 0.1 K/mm3 (0.0-0.4); Hematocrit 25.4 % (37.0-47.0); Lymphocytes # 1.2 K/mm3 (0.7-4.5); Lymphocytes % 10.5 % (10-50); Mean Corpuscular HGB Conc 31.6 g/dL (31.8-35.4); Mean Corpuscular Hemoglobin 28.9 pg (27.0-31.2); Mean Corpuscular Volume 91.4 fl (81-99); Mean Platelet Volume 9.1 fl (7.4-10.4); Monocytes # 0.2 K/mm3 (0.1-1.0); Monocytes % 1.4 % (1.7-9.3); Neutrophils # 9.7 K/mm3 (1.8-7.8); Platelet Count 241 K/mm3 (142-424); Red Blood Count 2.78 M/mm3 (4.20-5.40); Red Cell Distribution Width 19.9 % (11.5-17.5); White Blood Count 11.1 K/mm3 (4.8-10.8)
[2021-07-09 23:38] LABS: MANUAL DIFFERENTIAL MANUAL DIFFERENTIAL (MANUAL DIFF)
--- NOTE | 2021-07-09 23:39 | PC.NURSE ---
2124 This RN was notified of pt manual BP of 70/54 and unable to obtain axillary temp. 2129 Pt reassessed. rectal temp 93.8 F, Manual BP 70/58 2134 Bear hugger applied 2139 House notified of pt condition 2219 Unable to obtain manual BP with auscultation 2229 Manual BP obtained via doppler. . notified. to enter orders.
[2021-07-09 23:47] LABS: Burr Cells 3+; Lymphocytes % 13 % (10-50); Macrocytosis 1+; Monocytes % 1 % (2-9); Neutrophils % 86 % (42-76); Platelet Estimate Normal; Total Cells Counted 100
[2021-07-09 23:48] LABS: Spherocytes 1+
[2021-07-09 23:56] LABS: Anion Gap 12.7 mEq/L (5-15); Blood Urea Nitrogen 20 mg/dl (7-17); Calcium 7.4 mg/dl (8.4-10.2); Carbon Dioxide 11 mmol/L (22.0-30.0); Chloride 118 mmol/L (98-107); Creatinine Clearance Estimated 56 mL/min (50-200); Estimated Glomerular Filt Rate 49 ml/min (>60); GFR (African American) 60 ML/MIN (>60); Glucose 85 mg/dl (74-100); Potassium 3.7 mmoL/L (3.5-5.1); Sodium 138 mmol/L (136-145)
[2021-07-10] VITALS (15 sets, daily range): BP systolic 83–147; BP diastolic 47–98; PULSE 65–100; RESP 16–24; TEMP 35.7–37.5; O2SAT 89–98; BMI 34.0
[2021-07-10 00:08] LABS: Troponin I 0.18 ng/ml (0.00-0.034)
--- NOTE | 2021-07-10 06:07 | PC.NURSE ---
Shift summary. Pt is oriented only to person. She will wake up and respond when rolled or temp is being taken but goes back to sleep immediately after. PO meds have continued to be held d/t pt lethargy. Pt was found to be hypothermic and hypotensive at beginning of shift. made aware and new orders carried out. Bear hugger continues to be in place, current temp 96.3. Pt received 1 L NS bolus over 2 hours and BP is currently 99/49. NS running at 125ml/hr into 20g IV in left chest. Dressing to coccyx applied CDI. Borden catheter in place draining clear steven urine to gravity. Pt is currently resting in bed. CB in reach. Will continue to monitor.
[2021-07-10 06:26] LABS: Basophils % 0.2 % (0.1-2.0); Eosinophils % 0.1 % (0.1-12.0); Hematocrit 23.1 % (37.0-47.0); Hemoglobin 7.2 g/dL (12.2-16.2); Lymphocytes % 8.9 % (10-50); Mean Corpuscular Volume 93.5 fl (81-99); Mean Platelet Volume 9.5 fl (7.4-10.4); Monocytes # 0.3 K/mm3 (0.1-1.0); Monocytes % 2.3 % (1.7-9.3); Neutrophils # 9.5 K/mm3 (1.8-7.8); Neutrophils % 88.3 % (37.0-80.0); Platelet Count 251 K/mm3 (142-424); Red Blood Count 2.47 M/mm3 (4.20-5.40); White Blood Count 10.7 K/mm3 (4.8-10.8)
[2021-07-10 06:31] LABS: Anion Gap 15.7 mEq/L (5-15); Blood Urea Nitrogen 18 mg/dl (7-17); Chloride 122 mmol/L (98-107); Creatinine Clearance Estimated 56 mL/min (50-200); Estimated Glomerular Filt Rate 45 ml/min (>60); GFR (African American) 54 ML/MIN (>60); Glucose 54 mg/dl (74-100); Potassium 3.7 mmoL/L (3.5-5.1); Sodium 142 mmol/L (136-145)
[2021-07-10 06:45] LABS: Carbon Dioxide 8 mmol/L (22.0-30.0)
[2021-07-10 08:05] LABS: POC Glucose,Bedside 110 (70-110)
--- NOTE | 2021-07-10 08:30 | HMH.ACPN2 ---
Internal Medicine - PN: Subj *Date: 07/10/21 *Time: 11:57 Interval history: 66-year-old female patient resting in bed with her eyes closed, she only responds to tactile stimuli and does not answer any questions or follow commands. Oxygenation 91% on 3 L per nasal cannula she did have a loop recorder placed yesterday. Blood has arrived in the lab and is in route to floor at present Exam Vital signs and Labs for Last 24 Hours: Temp Pulse Resp BP Pulse Ox 98.9 F 87 20 147/75 H 90 L 07/10/21 07:19 07/10/21 07:19 07/10/21 07:19 07/10/21 07:19 07/10/21 07:19 Laboratory Results - last 24 hr 07/09/21 05:57: Sodium 139, Potassium 3.5, Chloride 118 H, Carbon Dioxide 10 L D, Anion Gap 14.5, BUN 19 H, Creatinine 1.10 H, Estimated Creat Clear 57, Estimated GFR Not Reportable, Est GFR ( Amer) Not Reportable, Glucose 105 H, Calcium 7.4 L, Total Bilirubin 0.5, AST 132 H D, ALT 25 D, Alkaline Phosphatase 101, Total Protein 4.4 L, Albumin 2.0 L, Globulin 2.4, Albumin/Globulin Ratio 0.8 L 07/09/21 11:30: POC Glucose 135 H 07/09/21 15:40: Blood Type B Positive, Antibody Screen Positive, Crossmatch (AHG) See Detail 07/09/21 15:40: Antibody Identification Anti-E 07/09/21 16:40: POC Glucose 128 H 07/09/21 20:07: POC Glucose 110 07/09/21 23:25: WBC 11.1 H, RBC 2.78 L, Hgb 8.0 L, Hct 25.4 L, MCV 91.4, MCH 28.9, MCHC 31.6 L, RDW 19.9 H, Plt Count 241, MPV 9.1, Neut % (Auto) 87.0 H, Lymph % (Auto) 10.5, Treasure % (Auto) 1.4 L, Eos % (Auto) 1.0, Baso % (Auto) 0.1, Neut # (Auto) 9.7 H, Lymph # (Auto) 1.2, Treasure # (Auto) 0.2, Eos # (Auto) 0.1, Baso # (Auto) 0.0, Total Counted 100, Neutrophils % (Manual) 86 H, Lymphocytes % (Manual) 13, Monocytes % (Manual) 1 L, Platelet Estimate Normal, Macrocytosis 1+, Spherocytes 1+, Kyleigh Cells 3+ 07/09/21 23:25: Sodium 138, Potassium 3.7, Chloride 118 H, Carbon Dioxide 11 L, Anion Gap 12.7, BUN 20 H, Creatinine 1.10 H, Estimated Creat Clear 56, Estimated GFR 49 L, Est GFR ( Amer) 60, Glucose 85, Calcium 7.4 L, Troponin I 0.18 H 07/10/21 06:05: WBC 10.7, RBC 2.47 L, Hgb 7.2 L, Hct 23.1 L, MCV 93.5, MCH 29.0, MCHC 31.0 L, RDW 20.0 H, Plt Count 251, MPV 9.5, Neut % (Auto) 88.3 H, Lymph % (Auto) 8.9 L, Treasure % (Auto) 2.3, Eos % (Auto) 0.1, Baso % (Auto) 0.2, Neut # (Auto) 9.5 H, Lymph # (Auto) 1.0, Treasure # (Auto) 0.3, Eos # (Auto) 0.0, Baso # (Auto) 0.0 07/10/21 06:05: Sodium 142, Potassium 3.7, Chloride 122 H, Carbon Dioxide 8 L* D, Anion Gap 15.7 H, BUN 18 H, Creatinine 1.20 H, Estimated Creat Clear 56, Estimated GFR 45 L, Est GFR ( Amer) 54 L, Glucose 54 L D, Calcium 7.0 L I & O for Last 24 hours: Intake & Output 07/07/21 07/08/21 07/09/21 07/10/21 23:59 23:59 23:59 23:59 Intake Total 0 / 0 Output Total 600 / 600 50 / 50 0 / 0 Balance -600 / -600 -50 / -50 0 / 0 Weight 161 lb 7 oz 161 lb 7.006 oz 160 lb 14.999 oz 173 lb 6 oz Microbiology Reports for the Last 24 Hours: Microbiology 07/07/21 15:02 Blood Blood Culture - Preliminary NO GROWTH AFTER 48 HOURS 07/07/21 15:02 Blood Blood Culture - Preliminary NO GROWTH AFTER 48 HOURS - Constitutional no acute distress, chronically ill appearing - *Routine Neck Exam Present: trachea midline. Absent: tracheal deviation - *Routine Respiratory Exam Present: decreased breath sounds, wheezes - *Routine Cardiovascular Exam Present: RRR - *Routine Abdominal Exam Present: soft, normoactive bowel sounds. Absent: distended, firm - *Routine Extremities Exam Absent: cyanosis Comments: L AKA - *Routine Skin Exam Present: dry, warm. Absent: cyanosis - *Routine Neurological Exam Present: altered mental status. Absent: alert, oriented X3 - Routine Psychiatric Exam Present: unable to assess Assessment and Plan (1) Syncope and collapse Status: Acute Category: Medical Code(s): R55 - Syncope and collapse (2) Elevated troponin Status: Acute Category: Me
--- NOTE | 2021-07-10 08:55 | HMH.GSPN ---
Subjective Narrative: Per nursing she had a rough night . She is currently somewhat agitated. Progress Note: A&P (1) Syncope and collapse Status: Acute (2) Elevated troponin Status: Acute (3) Anemia Status: Acute (4) Occult blood positive stool Status: Acute (5) Somnolence Status: Acute (6) Anorexia Status: Chronic (7) Depression Status: Chronic (8) Renal insufficiency Status: Acute (9) CAD (coronary artery disease) Status: Chronic (10) Diabetes mellitus Status: Chronic (11) HLD (hyperlipidemia) Status: Chronic (12) Hypertension Status: Chronic (13) Renal artery stenosis Status: Chronic (14) Tobacco use Status: Chronic (15) Gastric ulcer Status: Acute Assessment and plan: Quite possibly the source of her recent anemia. She has started proton pump inhibition/Carafate. Exam Vital signs and Labs for Last 24 Hours: Temp Pulse Resp BP Pulse Ox 98.9 F 87 20 147/75 H 90 L 07/10/21 07:19 07/10/21 07:19 07/10/21 07:19 07/10/21 07:19 07/10/21 07:19 Laboratory Results - last 24 hr 07/09/21 05:57: Sodium 139, Potassium 3.5, Chloride 118 H, Carbon Dioxide 10 L D, Anion Gap 14.5, BUN 19 H, Creatinine 1.10 H, Estimated Creat Clear 57, Estimated GFR Not Reportable, Est GFR ( Amer) Not Reportable, Glucose 105 H, Calcium 7.4 L, Total Bilirubin 0.5, AST 132 H D, ALT 25 D, Alkaline Phosphatase 101, Total Protein 4.4 L, Albumin 2.0 L, Globulin 2.4, Albumin/Globulin Ratio 0.8 L 07/09/21 11:30: POC Glucose 135 H 07/09/21 15:40: Blood Type B Positive, Antibody Screen Positive, Crossmatch (AHG) See Detail 07/09/21 15:40: Antibody Identification Anti-E 07/09/21 16:40: POC Glucose 128 H 07/09/21 20:07: POC Glucose 110 07/09/21 23:25: WBC 11.1 H, RBC 2.78 L, Hgb 8.0 L, Hct 25.4 L, MCV 91.4, MCH 28.9, MCHC 31.6 L, RDW 19.9 H, Plt Count 241, MPV 9.1, Neut % (Auto) 87.0 H, Lymph % (Auto) 10.5, Grand % (Auto) 1.4 L, Eos % (Auto) 1.0, Baso % (Auto) 0.1, Neut # (Auto) 9.7 H, Lymph # (Auto) 1.2, Grand # (Auto) 0.2, Eos # (Auto) 0.1, Baso # (Auto) 0.0, Total Counted 100, Neutrophils % (Manual) 86 H, Lymphocytes % (Manual) 13, Monocytes % (Manual) 1 L, Platelet Estimate Normal, Macrocytosis 1+, Spherocytes 1+, Kyleigh Cells 3+ 07/09/21 23:25: Sodium 138, Potassium 3.7, Chloride 118 H, Carbon Dioxide 11 L, Anion Gap 12.7, BUN 20 H, Creatinine 1.10 H, Estimated Creat Clear 56, Estimated GFR 49 L, Est GFR ( Amer) 60, Glucose 85, Calcium 7.4 L, Troponin I 0.18 H 07/10/21 06:05: WBC 10.7, RBC 2.47 L, Hgb 7.2 L, Hct 23.1 L, MCV 93.5, MCH 29.0, MCHC 31.0 L, RDW 20.0 H, Plt Count 251, MPV 9.5, Neut % (Auto) 88.3 H, Lymph % (Auto) 8.9 L, Grand % (Auto) 2.3, Eos % (Auto) 0.1, Baso % (Auto) 0.2, Neut # (Auto) 9.5 H, Lymph # (Auto) 1.0, Grand # (Auto) 0.3, Eos # (Auto) 0.0, Baso # (Auto) 0.0 07/10/21 06:05: Sodium 142, Potassium 3.7, Chloride 122 H, Carbon Dioxide 8 L* D, Anion Gap 15.7 H, BUN 18 H, Creatinine 1.20 H, Estimated Creat Clear 56, Estimated GFR 45 L, Est GFR ( Amer) 54 L, Glucose 54 L D, Calcium 7.0 L I & O for Last 24 hours: Intake & Output 07/07/21 07/08/21 07/09/21 07/10/21 11:59 11:59 11:59 11:59 Intake Total 0 / 0 Output Total 600 / 600 50 / 50 0 / 0 Balance -600 / -600 -50 / -50 0 / 0 Weight 161 lb 7.006 oz 161 lb 7.006 oz 173 lb 6 oz Microbiology Reports for the Last 24 Hours: Microbiology 07/07/21 15:02 Blood Blood Culture - Preliminary NO GROWTH AFTER 48 HOURS 07/07/21 15:02 Blood Blood Culture - Preliminary NO GROWTH AFTER 48 HOURS - Constitutional mild distress - *Routine Cardiovascular Exam Absent: tachycardia
--- NOTE | 2021-07-10 09:25 | HMH.PNCARD ---
<Gardenia Coker - Last Filed: 07/10/21 11:06> Subjective Date: 07/10/21 Time: 09:15 Principal diagnosis: syncope Interval history: This is a 66-year-old white female who was admitted to the hospital after syncopal episode. The patient has an altered mental status at this time and is not answering any my questions or following any commands. She appears to be in no distress. Her vital signs are stable. Exam Vital signs and Labs for Last 24 Hours: Temp Pulse Resp BP Pulse Ox 99.5 F 100 H 24 123/60 98 07/10/21 09:05 07/10/21 09:05 07/10/21 09:05 07/10/21 09:05 07/10/21 09:05 Laboratory Results - last 24 hr 07/09/21 05:57: BUN 19 H, Estimated GFR Not Reportable, Est GFR ( Amer) Not Reportable 07/09/21 11:30: POC Glucose 135 H 07/09/21 15:40: Blood Type B Positive, Antibody Screen Positive, Crossmatch (AHG) See Detail 07/09/21 15:40: Antibody Identification Anti-E 07/09/21 16:40: POC Glucose 128 H 07/09/21 20:07: POC Glucose 110 07/09/21 23:25: WBC 11.1 H, RBC 2.78 L, Hgb 8.0 L, Hct 25.4 L, MCV 91.4, MCH 28.9, MCHC 31.6 L, RDW 19.9 H, Plt Count 241, MPV 9.1, Neut % (Auto) 87.0 H, Lymph % (Auto) 10.5, Payne % (Auto) 1.4 L, Eos % (Auto) 1.0, Baso % (Auto) 0.1, Neut # (Auto) 9.7 H, Lymph # (Auto) 1.2, Payne # (Auto) 0.2, Eos # (Auto) 0.1, Baso # (Auto) 0.0, Total Counted 100, Neutrophils % (Manual) 86 H, Lymphocytes % (Manual) 13, Monocytes % (Manual) 1 L, Platelet Estimate Normal, Macrocytosis 1+, Spherocytes 1+, Kyleigh Cells 3+ 07/09/21 23:25: Sodium 138, Potassium 3.7, Chloride 118 H, Carbon Dioxide 11 L, Anion Gap 12.7, BUN 20 H, Creatinine 1.10 H, Estimated Creat Clear 56, Estimated GFR 49 L, Est GFR ( Amer) 60, Glucose 85, Calcium 7.4 L, Troponin I 0.18 H 07/10/21 06:05: WBC 10.7, RBC 2.47 L, Hgb 7.2 L, Hct 23.1 L, MCV 93.5, MCH 29.0, MCHC 31.0 L, RDW 20.0 H, Plt Count 251, MPV 9.5, Neut % (Auto) 88.3 H, Lymph % (Auto) 8.9 L, Payne % (Auto) 2.3, Eos % (Auto) 0.1, Baso % (Auto) 0.2, Neut # (Auto) 9.5 H, Lymph # (Auto) 1.0, Payne # (Auto) 0.3, Eos # (Auto) 0.0, Baso # (Auto) 0.0 07/10/21 06:05: Sodium 142, Potassium 3.7, Chloride 122 H, Carbon Dioxide 8 L* D, Anion Gap 15.7 H, BUN 18 H, Creatinine 1.20 H, Estimated Creat Clear 56, Estimated GFR 45 L, Est GFR ( Amer) 54 L, Glucose 54 L D, Calcium 7.0 L I & O for Last 24 hours: Intake & Output 07/07/21 07/08/21 07/09/21 07/10/21 23:59 23:59 23:59 23:59 Intake Total 0 / 0 Output Total 600 / 600 50 / 50 0 / 0 Balance -600 / -600 -50 / -50 0 / 0 Weight 161 lb 7 oz 161 lb 7.006 oz 160 lb 14.999 oz 173 lb 6 oz Microbiology Reports for the Last 24 Hours: Microbiology 07/07/21 15:02 Blood Blood Culture - Preliminary NO GROWTH AFTER 48 HOURS 07/07/21 15:02 Blood Blood Culture - Preliminary NO GROWTH AFTER 48 HOURS Narrative: Telemetry strip is sinus rhythm. limited Echo shows: 1. Limited Definity contrast the study was performed, despite Definity contrast the endocardial borders are poorly visualized. 2. Likely preserved left ventricular systolic function, estimated ejection fraction 55% with no obvious regional wall motion abnormality in the visualized segments. - Constitutional no acute distress, obese - *Routine HEENT Exam Head: Present: normocephalic, atraumatic ENT: Present: mucous membranes moist - *Routine Neck Exam Present: supple, full ROM, normal carotid upstroke. Absent: JVD, carotid bruit, lymphadenopathy - *Routine Respiratory Exam Present: rhonchi, wheezes - *Routine Cardiovascular Exam Present: RRR, Normal S1, Normal S2. Absent: murmur - *Routine Abdominal Exam Present: soft, normoactive bowel sounds. Absent: tenderness - *Routine Extremities Exam Present: pulses intact, normal capillary refill. Absent: cyanosis, clubbing, edema - *Routine Skin Exam Present: warm. Absent: rash - *Routine Neurological Exam Present: altered mental status P
--- NOTE | 2021-07-10 09:30 | PC.NURSE ---
RN at bedside. Patient increasingly septic. Provider orders 1 unit of blood for critical Hgb of 7.2, 25 mL of D50 IV push for serum glucose of 54. STAT ABG ordered, patient is cyanotic with RLE pulse only palpable via doppler-- only audible pulse via doppler pulse is venous +1. ABG read with critical bicard of 6.8. Provider notified. 2 amps of bicard administered IV push. 2,000 mg Calcium gluconate administered at rate of 60mL/hr. RN was getting q5 minute vitals-- Patient experiencing acute hypotension, MAPS q5 minutes as follows: 48 50 52 55 Provider notified, provider ordered Levophed drip to be initiated. Triple lumen deep line placed L chest. Patient moved stepdown. RN was at bedside the entire time, while obtaining q5 minute vitals. Datascope was unfortunately turned off during patient transfer. thus deleting vitals. RN was monitoring the entire time for transfusion reactions according to blood administration protocol but will be unable to chart vitals accordingly due to critical circumstance at the time. The patient remains critical but stable. Family ( and daughter) notified of patient status as well as Primary Provider and Cardiology.
[2021-07-10 09:35] LABS: ABG Base Excess -20.1 mmol/L (-2.4-2.3); ABG HCO3 6.4 mmhg (22.0-26.0); ABG Oxygen Saturation 95 % (90-100); ABG PH 7.29 mmol/L (7.35-7.45); ABG PO2 89.7 mmhg (80-100); ABG TCO2 6.8 mmhg (23-27)
[2021-07-10 09:37] LABS: ABG PCO2 13.6 mmhg (35.0-45.0); Oxygen 6 LPM %; Source Left Brachial
--- NOTE | 2021-07-10 10:50 | XR_ITS ---
PROCEDURE: XR CHEST PORTABLE CLINICAL HISTORY: central line placement COMPARISON: CR XR CHEST PORTABLE from 06/30/2021 CR XR CHEST PORTABLE from 07/07/2021 CR XR CHEST PORTABLE from 07/10/2021 FINDINGS: Left subclavian central venous line has been placed. The tip is in the region of the right atrium. No evidence of pneumothorax. Loop recorder device noted projecting over the left heart. Faint density noted in the right lower lobe consistent with infiltrate which has shown some improvement from 07/10/2021. IMPRESSION: 1. Left subclavian central venous line present with the tip in the region of the right atrium. No evidence of pneumothorax. 2. Improving right lower lobe pneumonia Dictated by: Yosef Noyola MD 07/10/2021 11:50 Yosef Noyola MD in OV 07/10/2021 11:50
--- NOTE | 2021-07-10 11:26 | P.PCN_ITS ---
[facility] Procedure Note Procedure Note:: Procedure Date/Time: 07.10.2021 @ 1040 Procedure: Triple-lumen catheter placement into the left subclavian vein Indication: Need for IV access/starting pressors Performed by: Natan Alas MD Consent: The procedure was performed emergently and permission was implied because of the emergent nature. Procedure summary: Hands were washed prior to starting sterile technique. A timeout was performed. Sterile surgical, gown and sterile gloves were used with sterile technique. The patient was laid supine in the bed. The left side of her chest was prepped in sterile technique with chlorhexidine and draped in a sterile fashion. The left subclavian vein was identified and 1% lidocaine was used to achieve anesthesia. The introducer needle was inserted into the left subcalvian vein and venous blood was withdrawn. The guide wire was advanced into the introducer needle and once the guidewire was in satisfactory position the central venous catheter was advanced. The wire was removed and the catheter was secured in place with sutures. A Tegaderm was used to cover the left subclavian catheter. The patient tolerated the procedure well without any hemodynamic compromise. At the time of completion of the insertion all of the ports were flushed and aspirated properly. Estimated blood loss was less than 10 mL. Complications: None
[2021-07-10 21:53] LABS: POC Glucose,Bedside 62 (70-110)
[2021-07-10 21:53] LABS: POC Glucose,Bedside 64 (70-110)
[2021-07-10 21:53] LABS: POC Glucose,Bedside 102 (70-110)
[2021-07-10 21:58] LABS: Hematocrit 29.2 % (37.0-47.0)
[2021-07-10 22:06] LABS: Hemoglobin 9.2 g/dL (12.2-16.2)
--- NOTE | 2021-07-10 23:01 | XR_ITS ---
PROCEDURE INFORMATION: Exam: XR Chest Exam date and time: 07/10/2021 11:01 PM Age: 66 years old Clinical indication: Shortness of breath; Additional info: SOB TECHNIQUE: Imaging protocol: XR of the chest. Views: 1 view. COMPARISON: CR XR CHEST PORTABLE 07/07/2021 1:58 PM FINDINGS: Lungs: Consolidation at the right lung base, suspicious for pneumonia. Pleural spaces: Small right pleural effusion. No pneumothorax. Heart/Mediastinum: Heart size upper limits of normal. Aortic atherosclerosis. Implantable loop recorder. Bones/joints: Osteopenia. Scattered degenerative changes. Multilevel spondylosis. Mild dextroconvex thoracic curvature, increased since prior, possibly positional. IMPRESSION: 1. New consolidation at the right lung base suspicious for pneumonia. 2. Small right pleural effusion.
[2021-07-11] VITALS (21 sets, daily range): BP systolic 96–149; BP diastolic 44–94; PULSE 60–96; RESP 16–20; TEMP 34.3–36.6; O2SAT 90–96; BMI 35.2; BMI 34.0
[2021-07-11 00:49] LABS: POC Glucose,Bedside 118 (70-110)
[2021-07-11 00:49] LABS: POC Glucose,Bedside 176 (70-110)
[2021-07-11 04:53] LABS: POC Glucose,Bedside 225 (70-110)
[2021-07-11 06:53] LABS: Basophils % 0.2 % (0.1-2.0); Eosinophils % 0.1 % (0.1-12.0); Hematocrit 28.7 % (37.0-47.0); Hemoglobin 9.1 g/dL (12.2-16.2); Lymphocytes # 1.3 K/mm3 (0.7-4.5); Lymphocytes % 10.8 % (10-50); Mean Corpuscular HGB Conc 31.7 g/dL (31.8-35.4); Mean Corpuscular Hemoglobin 30.2 pg (27.0-31.2); Mean Corpuscular Volume 95.3 fl (81-99); Mean Platelet Volume 8.7 fl (7.4-10.4); Monocytes # 0.2 K/mm3 (0.1-1.0); Monocytes % 1.4 % (1.7-9.3); Neutrophils # 10.3 K/mm3 (1.8-7.8); Neutrophils % 87.5 % (37.0-80.0); Platelet Count 188 K/mm3 (142-424); Red Blood Count 3.01 M/mm3 (4.20-5.40); Red Cell Distribution Width 19.8 % (11.5-17.5); White Blood Count 11.7 K/mm3 (4.8-10.8)
[2021-07-11 07:11] LABS: Chloride 123 mmol/L (98-107); Sodium 146 mmol/L (136-145)
[2021-07-11 07:14] LABS: Anion Gap 14.9 mEq/L (5-15); Blood Urea Nitrogen 17 mg/dl (7-17); Calcium 6.8 mg/dl (8.4-10.2); Carbon Dioxide 11 mmol/L (22.0-30.0); Creatinine Clearance Estimated 48 mL/min (50-200); Estimated Glomerular Filt Rate 37 ml/min (>60); GFR (African American) 45 ML/MIN (>60); Glucose 203 mg/dl (74-100)
[2021-07-11 07:16] LABS: MANUAL DIFFERENTIAL MANUAL DIFFERENTIAL (MANUAL DIFF)
[2021-07-11 07:36] LABS: Potassium 2.9 mmoL/L (3.5-5.1)
[2021-07-11 08:22] LABS: Lymphocytes % 7 % (10-50); Neutrophils % 93 % (42-76); Nucleated Red Blood Cells 1; Total Cells Counted 100
[2021-07-11 08:24] LABS: Anisocytosis 1+; Hypochromasia 1+; Macrocytosis 2+; Platelet Estimate Normal
[2021-07-11 08:59] LABS: Alanine Aminotransferase 42 U/L (12-78); Aspartate Amino Transferase 199 U/L (14-36); Cholesterol 99 mg/dl (140-200); Triglycerides 225 mg/dl (30-150); VLDL Cholesterol 45 mg/dL (0-40)
[2021-07-11 09:00] LABS: Albumin Level 1.6 g/dl (3.5-5.0); Alkaline Phosphatase 106 U/L (38-126); Bilirubin,Total 0.4 mg/dl (0.2-1.3); Chol/HDL Ratio 2.8 (1-3.5); HDL Cholesterol 36 mg/dl (40-60); Total Protein,Serum 3.6 g/dl (6.3-8.2)
[2021-07-11 09:11] LABS: Direct LDL Cholesterol 38.78 mg/dL (100-129)
[2021-07-11 09:20] LABS: Bilirubin,Direct 0.1 mg/dl (0.0-0.4); Bilirubin,Indirect 0.3 mg/dL (0.0-0.9); Bilirubin,Unconjugated 0.3 mg/dL (0.0-1.1)
--- NOTE | 2021-07-11 09:38 | HMH.PNCARD ---
Subjective Date: 07/11/21 Time: 09:30 Principal diagnosis: syncope Interval history: This is a 66-year-old white female who was admitted to the hospital after syncopal episode. The patient is unresponsive and is not following any commands or answering any questions. She appears to be in no distress this morning. Her vital signs are stable. She remains on a Levophed drip currently for blood pressure support. Exam Vital signs and Labs for Last 24 Hours: Temp Pulse Resp BP Pulse Ox 94.6 F L 67 18 109/53 L 96 07/11/21 08:58 07/11/21 06:03 07/11/21 06:00 07/11/21 06:00 07/11/21 08:00 Laboratory Results - last 24 hr 07/09/21 15:40: Crossmatch (AHG) See Detail 07/10/21 08:31: ABG pH 7.29 L, ABG pCO2 13.6 L, ABG pO2 89.7, ABG HCO3 6.4 L, ABG Total CO2 6.8 L, ABG O2 Saturation 95, ABG Base Excess -20.1 L 07/10/21 08:50: POC Glucose 64 L 07/10/21 09:57: POC Glucose 102 07/10/21 14:27: POC Glucose 62 L 07/10/21 17:33: POC Glucose 118 H 07/10/21 21:40: Hgb 9.2 L D, Hct 29.2 L 07/10/21 22:00: POC Glucose 176 H 07/11/21 04:45: POC Glucose 225 H 07/11/21 06:15: Total Bilirubin 0.4, Direct Bilirubin 0.1, Conjugated Bilirubin 0.0, Indirect Bilirubin 0.3, Unconjugated Bilirubin 0.3, AST 199 H D, ALT 42 D, Alkaline Phosphatase 106, Total Protein 3.6 L, Albumin 1.6 L, Triglycerides 225 H, Cholesterol 99 L, LDL Cholesterol Direct 38.78 L, VLDL Cholesterol 45 H, HDL Cholesterol 36 L, Cholesterol/HDL Ratio 2.8 07/11/21 06:15: WBC 11.7 H, RBC 3.01 L, Hgb 9.1 L, Hct 28.7 L, MCV 95.3, MCH 30.2, MCHC 31.7 L, RDW 19.8 H, Plt Count 188 D, MPV 8.7, Neut % (Auto) 87.5 H, Lymph % (Auto) 10.8, Andrew % (Auto) 1.4 L, Eos % (Auto) 0.1, Baso % (Auto) 0.2, Neut # (Auto) 10.3 H, Lymph # (Auto) 1.3, Andrew # (Auto) 0.2, Eos # (Auto) 0.0, Baso # (Auto) 0.0, Total Counted 100, Neutrophils % (Manual) 93 H, Lymphocytes % (Manual) 7 L, Nucleated RBCs 1, Platelet Estimate Normal, Hypochromasia 1+, Anisocytosis 1+, Macrocytosis 2+ 07/11/21 06:15: Sodium 146 H, Potassium 2.9 L* D, Chloride 123 H, Carbon Dioxide 11 L, Anion Gap 14.9, BUN 17, Creatinine 1.40 H, Estimated Creat Clear 48, Estimated GFR 37 L, Est GFR ( Amer) 45 L, Glucose 203 H, Calcium 6.8 L I & O for Last 24 hours: Intake & Output 07/08/21 07/09/21 07/10/21 07/11/21 23:59 23:59 23:59 23:59 Intake Total 250 / 250 1992 Output Total 600 / 600 50 / 50 0 / 50 50 / 50 Balance -600 / -600 -50 / -50 250 / 200 1942 / 1942 Weight 161 lb 7.006 oz 160 lb 14.999 oz 173 lb 6 oz 173 lb Narrative: Telemetry strip is sinus rhythm with a rate of 66. - Constitutional no acute distress, obese - *Routine HEENT Exam Head: Present: normocephalic, atraumatic Eye: Present: EOMI ENT: Present: mucous membranes moist - *Routine Neck Exam Present: supple, normal carotid upstroke. Absent: JVD, carotid bruit, lymphadenopathy - *Routine Respiratory Exam Present: decreased breath sounds, wheezes - *Routine Cardiovascular Exam Present: RRR, Normal S1, Normal S2. Absent: murmur - *Routine Abdominal Exam Present: soft, normoactive bowel sounds. Absent: distended - *Routine Extremities Exam Present: pulses intact, normal capillary refill. Absent: cyanosis, clubbing, edema - *Routine Skin Exam Present: warm, ecchymosis. Absent: rash - *Routine Neurological Exam Present: altered mental status Progress Note: A&P (1) Hypotension Status: Acute (2) Syncope and collapse Status: Acute (3) Elevated troponin Status: Acute (4) Anemia Status: Acute (5) Occult blood positive stool Status: Acute (6) Somnolence Status: Acute (7) Anorexia Status: Chronic (8) Depression Status: Chronic (9) Renal insufficiency Status: Acute (10) CAD (coronary artery disease) Status: Chronic (11) Diabetes mellitus Status: Chronic (12) HLD (hyperlipidemia) Status: Chronic (13) Renal artery stenosis Status: Chronic (14) Tobacco use Status: Chron
--- NOTE | 2021-07-11 10:21 | HMH.ACPN2 ---
Internal Medicine - PN: Subj *Date: 07/11/21 *Time: 08:30 Exam Vital signs and Labs for Last 24 Hours: Temp Pulse Resp BP Pulse Ox 94.6 F L 67 18 109/53 L 96 07/11/21 08:58 07/11/21 06:03 07/11/21 06:00 07/11/21 06:00 07/11/21 08:00 Laboratory Results - last 24 hr 07/09/21 15:40: Crossmatch (AHG) See Detail 07/10/21 08:50: POC Glucose 64 L 07/10/21 09:57: POC Glucose 102 07/10/21 14:27: POC Glucose 62 L 07/10/21 17:33: POC Glucose 118 H 07/10/21 21:40: Hgb 9.2 L D, Hct 29.2 L 07/10/21 22:00: POC Glucose 176 H 07/11/21 04:45: POC Glucose 225 H 07/11/21 06:15: Total Bilirubin 0.4, Direct Bilirubin 0.1, Conjugated Bilirubin 0.0, Indirect Bilirubin 0.3, Unconjugated Bilirubin 0.3, AST 199 H D, ALT 42 D, Alkaline Phosphatase 106, Total Protein 3.6 L, Albumin 1.6 L, Triglycerides 225 H, Cholesterol 99 L, LDL Cholesterol Direct 38.78 L, VLDL Cholesterol 45 H, HDL Cholesterol 36 L, Cholesterol/HDL Ratio 2.8 07/11/21 06:15: WBC 11.7 H, RBC 3.01 L, Hgb 9.1 L, Hct 28.7 L, MCV 95.3, MCH 30.2, MCHC 31.7 L, RDW 19.8 H, Plt Count 188 D, MPV 8.7, Neut % (Auto) 87.5 H, Lymph % (Auto) 10.8, [place] % (Auto) 1.4 L, Eos % (Auto) 0.1, Baso % (Auto) 0.2, Neut # (Auto) 10.3 H, Lymph # (Auto) 1.3, [place] # (Auto) 0.2, Eos # (Auto) 0.0, Baso # (Auto) 0.0, Total Counted 100, Neutrophils % (Manual) 93 H, Lymphocytes % (Manual) 7 L, Nucleated RBCs 1, Platelet Estimate Normal, Hypochromasia 1+, Anisocytosis 1+, Macrocytosis 2+ 07/11/21 06:15: Sodium 146 H, Potassium 2.9 L* D, Chloride 123 H, Carbon Dioxide 11 L, Anion Gap 14.9, BUN 17, Creatinine 1.40 H, Estimated Creat Clear 48, Estimated GFR 37 L, Est GFR ( Amer) 45 L, Glucose 203 H, Calcium 6.8 L I & O for Last 24 hours: Intake & Output 07/08/21 07/09/21 07/10/21 07/11/21 11:59 11:59 11:59 11:59 Intake Total 0 / 250 2318.143 / 2318.143 Output Total 600 / 600 50 / 50 0 / 0 50 / 50 Balance -600 / -600 -50 / -50 0 / 250 2268.143 / 2268.143 Weight 161 lb 7.006 oz 161 lb 7.006 oz 173 lb 6 oz 173 lb - Constitutional no acute distress, obese, chronically ill appearing - *Routine HEENT Exam Head: Present: normocephalic Eye: Present: PERRL ENT: Present: mucous membranes moist - *Routine Neck Exam Present: supple. Absent: lymphadenopathy - *Routine Respiratory Exam Present: CTA bilaterally - *Routine Cardiovascular Exam Present: RRR - *Routine Abdominal Exam Present: soft, normoactive bowel sounds. Absent: tenderness - *Routine Extremities Exam Absent: cyanosis, clubbing, edema - *Routine Skin Exam Present: warm. Absent: rash - *Routine Neurological Exam non arousal Assessment and Plan (1) Hypotension Status: Acute Category: Medical Code(s): I95.9 - Hypotension, unspecified (2) Syncope and collapse Status: Acute Category: Medical Code(s): R55 - Syncope and collapse (3) Elevated troponin Status: Acute Category: Medical Code(s): R77.8 - Other specified abnormalities of plasma proteins (4) Anemia Status: Acute Qualifiers: Anemia type: unspecified type Qualified Code(s): D64.9 - Anemia, unspecified Category: Medical Code(s): D64.9 - Anemia, unspecified (5) Occult blood positive stool Status: Acute Category: Medical Code(s): R19.5 - Other fecal abnormalities (6) Somnolence Status: Acute Category: Medical Code(s): R40.0 - Somnolence (7) Anorexia Status: Chronic Category: Medical Code(s): R63.0 - Anorexia (8) Depression Status: Chronic Qualifiers: Depression Type: unspecified Qualified Code(s): F32.A - Depression, unspecified Category: Medical Code(s): F32.A - Depression, unspecified (9) Renal insufficiency Status: Acute Category: Medical Code(s): N28.9 - Disorder of kidney and ureter, unspecified (10) CAD (coronary artery disease) Status: Chronic Qualifiers: Coronary Disease-Associated Artery/Lesion type: [place] artery [place] vs. transplanted heart: [place]
[2021-07-11 10:37] LABS: POC Glucose,Bedside 239 (70-110)
--- NOTE | 2021-07-11 12:05 | HMH.GSPN ---
Subjective Narrative: Transferred to stepdown. Now requiring Levophed. No sign of active gastrointestinal hemorrhage. Progress Note: A&P (1) Hypotension Status: Acute (2) Syncope and collapse Status: Acute (3) Elevated troponin Status: Acute (4) Anemia Status: Acute (5) Occult blood positive stool Status: Acute (6) Somnolence Status: Acute (7) Anorexia Status: Chronic (8) Depression Status: Chronic (9) Renal insufficiency Status: Acute (10) CAD (coronary artery disease) Status: Chronic (11) Diabetes mellitus Status: Chronic (12) HLD (hyperlipidemia) Status: Chronic (13) Renal artery stenosis Status: Chronic (14) Tobacco use Status: Chronic (15) Severe sepsis with acute organ dysfunction Status: Acute (16) Gastric ulcer Status: Acute Assessment and plan: Multiple gastric ulcers noted on recent esophagogastroduodenoscopy. No sign of active hemorrhage noted. The patient has a very strong indication from a cardiac standpoint for aspirin. She also has a noted contraindication (multiple gastric ulcers). Ultimately, it may be reasonable to restart her aspirin at 81 mg and closely monitor her hemoglobin/hematocrit. She should remain on proton pump inhibition and Carafate. If aspirin is restarted it would be beneficial to also start Cytotec if deemed appropriate per her primary service. Exam Vital signs and Labs for Last 24 Hours: Temp Pulse Resp BP Pulse Ox 97.2 F L 79 18 110/44 L 93 L 07/11/21 11:38 07/11/21 10:00 07/11/21 10:00 07/11/21 10:00 07/11/21 10:00 Laboratory Results - last 24 hr 07/09/21 15:40: Crossmatch (AHG) See Detail 07/10/21 08:50: POC Glucose 64 L 07/10/21 09:57: POC Glucose 102 07/10/21 14:27: POC Glucose 62 L 07/10/21 17:33: POC Glucose 118 H 07/10/21 21:40: Hgb 9.2 L D, Hct 29.2 L 07/10/21 22:00: POC Glucose 176 H 07/11/21 04:45: POC Glucose 225 H 07/11/21 06:15: Total Bilirubin 0.4, Direct Bilirubin 0.1, Conjugated Bilirubin 0.0, Indirect Bilirubin 0.3, Unconjugated Bilirubin 0.3, AST 199 H D, ALT 42 D, Alkaline Phosphatase 106, Total Protein 3.6 L, Albumin 1.6 L, Triglycerides 225 H, Cholesterol 99 L, LDL Cholesterol Direct 38.78 L, VLDL Cholesterol 45 H, HDL Cholesterol 36 L, Cholesterol/HDL Ratio 2.8 07/11/21 06:15: WBC 11.7 H, RBC 3.01 L, Hgb 9.1 L, Hct 28.7 L, MCV 95.3, MCH 30.2, MCHC 31.7 L, RDW 19.8 H, Plt Count 188 D, MPV 8.7, Neut % (Auto) 87.5 H, Lymph % (Auto) 10.8, [place] % (Auto) 1.4 L, Eos % (Auto) 0.1, Baso % (Auto) 0.2, Neut # (Auto) 10.3 H, Lymph # (Auto) 1.3, [place] # (Auto) 0.2, Eos # (Auto) 0.0, Baso # (Auto) 0.0, Total Counted 100, Neutrophils % (Manual) 93 H, Lymphocytes % (Manual) 7 L, Nucleated RBCs 1, Platelet Estimate Normal, Hypochromasia 1+, Anisocytosis 1+, Macrocytosis 2+ 07/11/21 06:15: Sodium 146 H, Potassium 2.9 L* D, Chloride 123 H, Carbon Dioxide 11 L, Anion Gap 14.9, BUN 17, Creatinine 1.40 H, Estimated Creat Clear 48, Estimated GFR 37 L, Est GFR ( Amer) 45 L, Glucose 203 H, Calcium 6.8 L 07/11/21 10:27: POC Glucose 239 H I & O for Last 24 hours: Intake & Output 07/09/21 07/10/21 07/11/21 07/12/21 11:59 11:59 11:59 11:59 Intake Total 0 / 250 2318.143 / 2318.143 Output Total 50 / 50 0 / 0 50 / 50 Balance -50 / -50 0 / 250 2268.143 / 2268.143 Weight 161 lb 7.006 oz 173 lb 6 oz 173 lb - Constitutional Comments: She is currently resting. No acute distress noted.
--- NOTE | 2021-07-11 14:46 | DIET.NUTRFU ---
Pt with severe malnutrition not currently tolerating PO due to somnolence. Weight has gone up 10# past 48h. K was low today at 2.9 and being replaced. BG moderate avg. 165. Continuing to monitor and will add protein supplementation to diet order as pt's mentation improves.
--- NOTE | 2021-07-11 15:02 | PC.NURSE ---
0800 - Rectal temp 93.8, Kat Paw placed on pt per protocol. Rectal temps checked per hypothermia protocol until reaching 97.2. Warm blankets then placed on pt. Temp has been wnl since taking Kat Paw off this AM. Pt bathed and linens changed. Dressings to abdominal folds and scattered ulcers changed. New dressing applied to ulcer on coccyx. Oral care performed. Pt remains NPO d/t not be awake enough to follow commands/eat safely. Lungs coarse. HR regular. Levo currently @ 4 mcg/min. Abdomen soft, large, non-tender. [place] cath to drain @ bedside w/ steven urine. Borden care performed. Pt is total care, requiring Q2H turning, HOB > 30 degree for asp precautions. Family was here this AM to visit, updated on plan of care. Bed alarm is in place for safety. No needs voiced @ this time.
[2021-07-11 21:20] LABS: POC Glucose,Bedside 122 (70-110)
[2021-07-11 21:20] LABS: POC Glucose,Bedside 195 (70-110)
[2021-07-12] VITALS (26 sets, daily range): BP systolic 86–157; BP diastolic 42–81; PULSE 59–94; RESP 13–22; TEMP 34–36.7; O2SAT 85–95; BMI 34.0
--- NOTE | 2021-07-12 04:33 | PC.NURSE ---
Pt remains on Levophed gtt. Currently infusing @ 10 mcg/min. O2 has been titrated up this shift from 2L O2 NC to 3.5 L NC. During assessment, pt was noted to have multiple ulcers to [place] area. One of the ulcers started to bleed and was difficult to stop. electronic controls repairer supervisor was notified. Pressure DSG applied. DSG is intact at this time. No additional bleeding noted.
[2021-07-12 06:38] LABS: POC Glucose,Bedside 260 (70-110)
[2021-07-12 07:15] LABS: Basophils % 0.2 % (0.1-2.0); Eosinophils % 0.1 % (0.1-12.0); Hemoglobin 8.5 g/dL (12.2-16.2); Lymphocytes # 1.1 K/mm3 (0.7-4.5); Lymphocytes % 9.3 % (10-50); Mean Corpuscular HGB Conc 30.2 g/dL (31.8-35.4); Mean Corpuscular Hemoglobin 29.8 pg (27.0-31.2); Mean Corpuscular Volume 98.5 fl (81-99); Mean Platelet Volume 9.3 fl (7.4-10.4); Monocytes # 0.1 K/mm3 (0.1-1.0); Monocytes % 0.8 % (1.7-9.3); Neutrophils # 10.6 K/mm3 (1.8-7.8); Neutrophils % 89.6 % (37.0-80.0); Platelet Count 123 K/mm3 (142-424); Red Blood Count 2.85 M/mm3 (4.20-5.40); Red Cell Distribution Width 19.8 % (11.5-17.5); White Blood Count 11.8 K/mm3 (4.8-10.8)
[2021-07-12 07:21] LABS: MANUAL DIFFERENTIAL MANUAL DIFFERENTIAL (MANUAL DIFF)
[2021-07-12 07:24] LABS: Potassium 3.4 mmoL/L (3.5-5.1); Sodium 149 mmol/L (136-145)
[2021-07-12 07:26] LABS: Blood Urea Nitrogen 16 mg/dl (7-17); Creatinine Clearance Estimated 48 mL/min (50-200); Estimated Glomerular Filt Rate 37 ml/min (>60); GFR (African American) 45 ML/MIN (>60)
[2021-07-12 07:27] LABS: Anion Gap 13.4 mEq/L (5-15); Calcium 6.4 mg/dl (8.4-10.2); Carbon Dioxide 13 mmol/L (22.0-30.0); Glucose 254 mg/dl (74-100)
[2021-07-12 07:49] LABS: Anisocytosis 1+; Lymphocytes % 13 % (10-50); Macrocytosis 2+; Neutrophils % 87 % (42-76); Nucleated Red Blood Cells 1; Platelet Estimate Normal; Total Cells Counted 100
[2021-07-12 07:50] LABS: Hypochromasia 3+
--- NOTE | 2021-07-12 08:07 | HMH.ACPN2 ---
Internal Medicine - PN: Subj *Date: 07/12/21 *Time: 16:37 Interval history: 66-year-old female patient resting in bed quietly with eyes closed, she is unresponsive except to painful stimuli. Oxygen requirements have increased during the night from 2 L per nasal cannula to Ventimask at present and current oxygenation 89%. Her Levophed has also increased from 4 mg to 10 mg. Long discussion with regarding patient's condition and poor prognosis, and with son Sal. Sal reports verbalizing understanding condition poor prognosis. Exam Vital signs and Labs for Last 24 Hours: Temp Pulse Resp BP Pulse Ox 94.3 F L 81 19 105/58 L 89 L 07/12/21 00:00 07/12/21 07:00 07/12/21 07:00 07/12/21 07:00 07/12/21 07:00 Laboratory Results - last 24 hr 07/11/21 06:15: Total Bilirubin 0.4, Direct Bilirubin 0.1, Conjugated Bilirubin 0.0, Indirect Bilirubin 0.3, Unconjugated Bilirubin 0.3, AST 199 H D, ALT 42 D, Alkaline Phosphatase 106, Total Protein 3.6 L, Albumin 1.6 L, Triglycerides 225 H, Cholesterol 99 L, LDL Cholesterol Direct 38.78 L, VLDL Cholesterol 45 H, HDL Cholesterol 36 L, Cholesterol/HDL Ratio 2.8 07/11/21 06:15: Total Counted 100, Neutrophils % (Manual) 93 H, Lymphocytes % (Manual) 7 L, Nucleated RBCs 1, Platelet Estimate Normal, Hypochromasia 1+, Anisocytosis 1+, Macrocytosis 2+ 07/11/21 10:27: POC Glucose 239 H 07/11/21 16:28: POC Glucose 122 H 07/11/21 20:58: POC Glucose 195 H 07/12/21 05:59: POC Glucose 260 H 07/12/21 06:06: WBC 11.8 H, RBC 2.85 L, Hgb 8.5 L, Hct 28.0 L, MCV 98.5, MCH 29.8, MCHC 30.2 L, RDW 19.8 H, Plt Count 123 L D, MPV 9.3, Neut % (Auto) 89.6 H, Lymph % (Auto) 9.3 L, [place] % (Auto) 0.8 L, Eos % (Auto) 0.1, Baso % (Auto) 0.2, Neut # (Auto) 10.6 H, Lymph # (Auto) 1.1, [place] # (Auto) 0.1, Eos # (Auto) 0.0, Baso # (Auto) 0.0, Total Counted 100, Neutrophils % (Manual) 87 H, Lymphocytes % (Manual) 13, Nucleated RBCs 1, Platelet Estimate Normal, Hypochromasia 3+, Anisocytosis 1+, Macrocytosis 2+ I & O for Last 24 hours: Intake & Output 07/09/21 07/10/21 07/11/21 07/12/21 23:59 23:59 23:59 23:59 Intake Total 250 / 250 3232.143 / 3232.143 81.205 / 81.205 Output Total 50 / 50 0 / 50 50 / 250 200 / 200 Balance -50 / -50 250 / 200 3182.143 / 2982.143 -118.795 / -118.795 Weight 160 lb 14.999 oz 173 lb 6 oz 173 lb 173 lb - Constitutional mild distress, obese, chronically ill appearing - *Routine Neck Exam Present: trachea midline. Absent: tracheal deviation - *Routine Respiratory Exam Present: decreased breath sounds, wheezes. Absent: accessory muscle use - *Routine Cardiovascular Exam Present: RRR - *Routine Abdominal Exam Present: soft, normoactive bowel sounds. Absent: firm - *Routine Extremities Exam Present: edema, amputation. Absent: cyanosis, clubbing Comments: L AKA - *Routine Skin Exam Present: dry. Absent: cyanosis, erythema - *Routine Neurological Exam Present: altered mental status - Routine Psychiatric Exam Present: unable to assess Assessment and Plan (1) Hypotension Status: Acute Category: Medical Code(s): I95.9 - Hypotension, unspecified (2) Syncope and collapse Status: Acute Category: Medical Code(s): R55 - Syncope and collapse (3) Elevated troponin Status: Acute Category: Medical Code(s): R77.8 - Other specified abnormalities of plasma proteins (4) Anemia Status: Acute Qualifiers: Anemia type: unspecified type Qualified Code(s): D64.9 - Anemia, unspecified Category: Medical Code(s): D64.9 - Anemia, unspecified (5) Occult blood positive stool Status: Acute Category: Medical Code(s): R19.5 - Other fecal abnormalities (6) Somnolence Status: Acute Category: Medical Code(s): R40.0 - Somnolence (7) Anorexia Status: Chronic Category: Medical Code(s): R63.0 - Anorexia (8) Depression Status: Chronic Qualifiers: Depression Type: unspecified Qualified Code(s): F32.A - Depress
[2021-07-12 08:28] LABS: Chloride 126 mmol/L (98-107)
--- NOTE | 2021-07-12 09:00 | PC.NURSE ---
Temp 93.2 rectally @ 0900, Kat Paw placed on pt @ this time
[2021-07-12 12:39] LABS: POC Glucose,Bedside 249 (70-110)
--- NOTE | 2021-07-12 13:53 | PC.NURSE ---
1319 - Pt had taken off venturi mask and SPO2 dropped to 60's. Mask replaced but pt only able to recoop to high 70's-low 80's. Pt placed on non-rebreather, SPO2 currently 93%.
--- NOTE | 2021-07-12 15:00 | PC.NURSE ---
Pt temp wnl @ 1500, Kat Paw removed and warm blankets applied.
[2021-07-12 17:23] LABS: POC Glucose,Bedside 125 (70-110)
--- NOTE | 2021-07-12 19:59 | PC.NURSE ---
Kat Paw removed from pt @ this time
[2021-07-12 21:34] LABS: POC Glucose,Bedside 121 (70-110)
[2021-07-13] VITALS (8 sets, daily range): BP systolic 82–113; BP diastolic 48–61; PULSE 68–93; RESP 6–28; TEMP 36–36.6; O2SAT 86–93; BMI 34.0
--- NOTE | 2021-07-13 00:20 | PC.NURSE ---
p's map has been consistently above 65, norepi drip titrated off, will continue to monitor
--- NOTE | 2021-07-13 04:48 | PC.NURSE ---
pt's VSS, pt's vasoactive drip off several hours and MAP sustained above 65, pt rested comfortably most of shift however pt starting to moan but no po access to give tylenol and no IV medication ordered-will follow up with MD during am rounds or alert day RN to follow up if rounds after 0700-will continue to monitor
[2021-07-13 06:06] LABS: Basophils # 0.1 K/mm3 (0-0.2); Basophils % 0.6 % (0.1-2.0); Eosinophils % 0.3 % (0.1-12.0); Hematocrit 23.7 % (37.0-47.0); Lymphocytes # 1.3 K/mm3 (0.7-4.5); Lymphocytes % 14.6 % (10-50); Mean Corpuscular HGB Conc 30.1 g/dL (31.8-35.4); Mean Corpuscular Hemoglobin 30.3 pg (27.0-31.2); Mean Corpuscular Volume 100.6 fl (81-99); Mean Platelet Volume 9.6 fl (7.4-10.4); Monocytes # 0.1 K/mm3 (0.1-1.0); Monocytes % 1.3 % (1.7-9.3); Neutrophils # 7.6 K/mm3 (1.8-7.8); Neutrophils % 83.3 % (37.0-80.0); Platelet Count 74 K/mm3 (142-424); Red Blood Count 2.36 M/mm3 (4.20-5.40); Red Cell Distribution Width 20.4 % (11.5-17.5); White Blood Count 9.1 K/mm3 (4.8-10.8)
[2021-07-13 06:09] LABS: Chloride 124 mmol/L (98-107); Potassium 3.7 mmoL/L (3.5-5.1); Sodium 146 mmol/L (136-145)
[2021-07-13 06:10] LABS: POC Glucose,Bedside 184 (70-110)
[2021-07-13 06:12] LABS: Anion Gap 15.7 mEq/L (5-15); Blood Urea Nitrogen 17 mg/dl (7-17); Calcium 6.1 mg/dl (8.4-10.2); Creatinine Clearance Estimated 42 mL/min (50-200); Estimated Glomerular Filt Rate 32 ml/min (>60); GFR (African American) 39 ML/MIN (>60); Glucose 171 mg/dl (74-100)
[2021-07-13 06:16] LABS: Hemoglobin 7.2 g/dL (12.2-16.2)
[2021-07-13 06:18] LABS: Carbon Dioxide 10 mmol/L (22.0-30.0)
--- NOTE | 2021-07-13 06:30 | PC.NURSE ---
restarted norepi drip at 2.5 mcg/min at 0620 due to map 55 (59 15 miutes prior), lab called and informed that CO2 is critical at 10, at same time pt's oxygen saturations starting decreasing, went into pt's room and had pt take deep breaths and helped momentarily but then sats stayed 80-85%, notified MD Reilly of pt's CO2 and oxygen saturations on 100% nonrebreather, instructed to start pt on bipap, will notify RT and continue to monitor
--- NOTE | 2021-07-13 09:46 | HMH.ACPN2 ---
Internal Medicine - PN: Subj *Date: 07/13/21 *Time: 09:46 Exam Vital signs and Labs for Last 24 Hours: Temp Pulse Resp BP Pulse Ox 96.8 F L 68 20 103/51 L 86 L 07/13/21 05:00 07/13/21 06:58 07/13/21 06:58 07/13/21 06:58 07/13/21 06:00 Laboratory Results - last 24 hr 07/12/21 12:31: POC Glucose 249 H 07/12/21 16:56: POC Glucose 125 H 07/12/21 20:07: POC Glucose 121 H 07/13/21 05:30: POC Glucose 184 H 07/13/21 06:00: WBC 9.1, RBC 2.36 L, Hgb 7.2 L D, Hct 23.7 L, MCV 100.6 H, MCH 30.3, MCHC 30.1 L, RDW 20.4 H, Plt Count 74 L D, MPV 9.6, Neut % (Auto) 83.3 H, Lymph % (Auto) 14.6, [place] % (Auto) 1.3 L, Eos % (Auto) 0.3, Baso % (Auto) 0.6, Neut # (Auto) 7.6, Lymph # (Auto) 1.3, [place] # (Auto) 0.1, Eos # (Auto) 0.0, Baso # (Auto) 0.1 07/13/21 06:00: Sodium 146 H, Potassium 3.7, Chloride 124 H, Carbon Dioxide 10 L D, Anion Gap 15.7 H, BUN 17, Creatinine 1.60 H, Estimated Creat Clear 42, Estimated GFR 32 L, Est GFR ( Amer) 39 L, Glucose 171 H D, Calcium 6.1 L I & O for Last 24 hours: Intake & Output 07/10/21 07/11/21 07/12/21 07/13/21 23:59 23:59 23:59 23:59 Intake Total 250 / 250 3232.143 / 3232.143 1516.205 / 1516.205 Output Total 0 / 50 50 / 250 350 / 475 125 / 125 Balance 250 / 200 3182.143 / 2982.143 1166.205 / 1041.205 -125 / -125 Weight 78.642 kg 78.471 kg 78.471 kg 78.471 kg Microbiology Reports for the Last 24 Hours: Microbiology 07/07/21 15:02 Blood Blood Culture - Final NO GROWTH AFTER 5 DAYS 07/07/21 15:02 Blood Blood Culture - Final NO GROWTH AFTER 5 DAYS Assessment and Plan (1) Hypotension Status: Acute Category: Medical Code(s): I95.9 - Hypotension, unspecified (2) Syncope and collapse Status: Acute Category: Medical Code(s): R55 - Syncope and collapse (3) Elevated troponin Status: Acute Category: Medical Code(s): R77.8 - Other specified abnormalities of plasma proteins (4) Anemia Status: Acute Qualifiers: Anemia type: unspecified type Qualified Code(s): D64.9 - Anemia, unspecified Category: Medical Code(s): D64.9 - Anemia, unspecified (5) Occult blood positive stool Status: Acute Category: Medical Code(s): R19.5 - Other fecal abnormalities (6) Somnolence Status: Acute Category: Medical Code(s): R40.0 - Somnolence (7) Anorexia Status: Chronic Category: Medical Code(s): R63.0 - Anorexia (8) Depression Status: Chronic Qualifiers: Depression Type: unspecified Qualified Code(s): F32.A - Depression, unspecified Category: Medical Code(s): F32.A - Depression, unspecified (9) Renal insufficiency Status: Acute Category: Medical Code(s): N28.9 - Disorder of kidney and ureter, unspecified (10) CAD (coronary artery disease) Status: Chronic Qualifiers: Coronary Disease-Associated Artery/Lesion type: [place] artery [place] vs. transplanted heart: [place] heart Associated angina: without angina Qualified Code(s): I25.10 - Atherosclerotic heart disease of [place] coronary artery without angina pectoris Category: Medical Code(s): I25.10 - Atherosclerotic heart disease of [place] coronary artery without angina pectoris (11) Diabetes mellitus Status: Chronic Qualifiers: Diabetes mellitus type: type 2 Diabetes mellitus alf insulin use: unspecified supervisor intermediates insulin use status Diabetes mellitus complication status: with other specified complication Qualified Code(s): E11.69 - Type 2 diabetes mellitus with other specified complication Category: Medical Code(s): E11.9 - Type 2 diabetes mellitus without complications (12) HLD (hyperlipidemia) Status: Chronic Qualifiers: Hyperlipidemia type: unspecified Qualified Code(s): E78.5 - Hyperlipidemia, unspecified Category: Medical Code(s): E78.5 - Hyperlipidemia, unspecified (13) Renal artery stenosis Status: Chronic Category: Medical
--- NOTE | 2021-07-13 11:28 | HMH.DCSUM ---
General - General Admission date:: 07/07/21 Discharge date: 07/13/21 HPI HPI: Patient is a 66-year-old white female, very poor health chronically, she is a resident of [facility], unable to care for herself at home. He was admitted through the emergency room episode of syncope and collapse. Patient had been seen in the ER on 06 30, her hemoglobin on that day was 11. Globin yesterday was 8.4, with Hemoccult positive stools. Lab work is reviewed, her troponin was lightly elevated at 0.11. Her lactate was elevated at 3.4, trending down to 3.0. T the brain showed no acute abnormalities chest x-ray is negative Her EKG showed sinus bradycardia short AR interval. Patient has been seen by cardiology, is status post stent deployment of an ostial LAD lesion. She had a distal circumflex lesion that was decided to be amenable to medical treatment. Is a bifurcating vessel. A longstanding history of vasculopathy. 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 She is bedbound and unable to care for herself. Patient has a propensity for profound depression. She has lost several family members. She has been unable to care for herself at home. Her is present in the room during my examination. He relays that she has had a very flat affect for some time now. Patient looks chronically ill. Review of previous imaging studies shows a CAT scan on February 19 of this year showing some diverticular changes. We should consider this as a possible etiology of diet blood loss. Had no hematemesis, coffee-ground emesis grossly melanotic stool. Patient is somnolent and detailed history/ROS is difficult to obtain Hospital Course Hospital Course: Laboratory Tests 07/07/21 07/07/21 07/07/21 13:35 13:35 13:46 WBC RBC Hgb Hct MCV MCH MCHC RDW Plt Count MPV Neut % (Auto) Lymph % (Auto) [place] % (Auto) Eos % (Auto) Baso % (Auto) Neut # (Auto) Lymph # (Auto) [place] # (Auto) Eos # (Auto) Baso # (Auto) Total Counted Neutrophils % (Manual) Lymphocytes % (Manual) Monocytes % (Manual) Nucleated RBCs Platelet Estimate Hypochromasia Anisocytosis Macrocytosis Spherocytes [place] Cells Specimen Source L brachial O2 % Room air ABG pH 7.48 H ABG pCO2 20.5 L ABG pO2 69.0 L ABG HCO3 14.9 L ABG Total CO2 15.5 L ABG O2 Saturation 94 ABG Base Excess -8.7 L Yosef Test VBG pH VBG pCO2 VBG pO2 VBG HCO3 VBG Total CO2 VBG O2 Saturation VBG Base Excess Sodium Potassium Chloride Carbon Dioxide Anion Gap BUN Creatinine Estimated Creat Clear Estimated GFR Est GFR ( Amer) Glucose POC Glucose Lactate Calcium Total Bilirubin Direct Bilirubin Conjugated Bilirubin Indirect Bilirubin Unconjugated Bilirubin AST ALT Alkaline Phosphatase Ammonia Troponin I Total Protein Albumin Globulin Albumin/Globulin Ratio Triglycerides Cholesterol LDL Cholesterol Direct VLDL Cholesterol HDL Cholesterol Cholesterol/HDL Ratio TSH Urine Color Yellow Urine Appearance Clear Urine pH 6.0 Ur Specific [place] 1.025 Urine Protein Trace Urine Glucose (UA) Negative Urine Ketones Negative Urine Blood Negative Urine Nitrate Negative Urine Bilirubin 2+ A Urine Urobilinogen 0.2 Ur Leukocyte Esterase Negative Urine RBC 3-5 Urine WBC 3-5 Stool Occult Blood Positive A SARS-CoV-2 (PCR) Influenza A Untype (PCR) Influenza Type B (PCR) Blood Type Antibody Screen Antibody Identification Crossmatch (AHG) 07/07/21 07/07/21 07/07/21 15:02 15:02 15:02 WBC 8.
--- NOTE | 2021-07-13 12:30 | PC.NURSE ---
DURING MORNING ASSESSMENT THIS MORNING AT 0745 PT'S BP WAS 35/PALP. RESPIRATIONS 6/MIN ON BIPAP 100% FIO2. PT TOTALLY UNRESPONSIVE/UNAROUSABLE. LEVOPHED DRIP TITRATED TO MAX TO INCREASE BP. FAMILY NOTIFIED OF PT'S CONDITION AND THEY STATED THEY WERE ON THEIR WAY TO THE HOSPITAL. WHEN FAMILY ARRIVED AT 0845 TALKED TO FAMILY AND FAMILY DECIDED THAT THEY WANTED TO STOP THE DRIPS AND REMOVE BIPAP AND LET PT BE COMFORTABLE. ACCORDING TO FAMILY PT HAS STATED SEVERAL TIMES OVER THE LAST FEW MONTHS THAT SHE WAS TIRED AND READY TO GO AND THEY WANTED TO RESPECT HER WISHES. AT 0845 LEVOPHED DRIP WAS STOPPED. BIPAP WAS REMOVED. O2 NC WAS APPLIED FOR PT COMFORT. RESPIRATIONS 6/MIN AND UNABLE TO GET BP. HR MAINTAINED 60-70 FOR OVER AN HOUR UNTIL AROUND 1000 PT STARTED TO ADELE 40-50'S. 1030 HR 26. AYSYSTOLE AT 1036. ED PHYSICIAN WAS NOTIFIED AND PT WAS PRONOUNCED AT 1040. NOTIFIED PCP OFFICE. [facility] WAS CALLED AND PT WAS RULED OUT FOR DONATION. POST MORTEM CARE COMPLETED. [facility] NOTIFIED.
== END 2021-07-13 13:10 | disposition expired | DRG 260 ==
LOC: ER 16:42 → 2ND 17:10
PROVIDERS: Family Medicine; Internal Medicine; Nurse Practitioner Family; Surgery; Admitting Provider Family Medicine; Emergency Provider Emergency Medicine; Visit Provider Emergency Medicine
PROC: 0DJ08ZZ Inspection of Upper Intestinal Tract, Via Natural or Artificial Opening Endoscopic (ICD-10-PCS; CPT 43235; principal; 2021-07-09 08:30)
DX: R55 Syncope and collapse (principal); K25.4 Chronic or unspecified gastric ulcer with hemorrhage; J18.9 Pneumonia, unspecified organism; A41.9 Sepsis, unspecified organism; R65.20 Severe sepsis without septic shock; D64.9 Anemia, unspecified; Z79.01 Long term (current) use of anticoagulants; Z79.899 Other long term (current) drug therapy; Z88.8 Allergy status to other drugs, medicaments and biological substances; I25.10 Atherosclerotic heart disease of native coronary artery without angina pectoris; I70.1 Atherosclerosis of renal artery; F17.210 Nicotine dependence, cigarettes, uncomplicated; I50.9 Heart failure, unspecified; I11.0 Hypertensive heart disease with heart failure; E03.9 Hypothyroidism, unspecified; I25.2 Old myocardial infarction; Z95.1 Presence of aortocoronary bypass graft; F32.A Depression, unspecified; E78.5 Hyperlipidemia, unspecified; R77.8 Other specified abnormalities of plasma proteins; Z89.612 Acquired absence of left leg above knee; E11.51 Type 2 diabetes mellitus with diabetic peripheral angiopathy without gangrene; E86.0 Dehydration
CPT/HCPCS: 43239; 36556; 33285; 36415; 70450; 71045; 80048; 80053; 80061; 80076; 81001; 82140; 82272; 82803; 82962; 83605; 84443; 84484; 85007; 85014; 85018; 85025; 86850; 86870; 87040; 88305; 93005; 93308; 96375; 99285; C1751; C9803; G0328; P9016; Q9957; U0003; U0005